=== PATIENT | male | born 1970 | race Caucasian/White ===

== ENCOUNTER 2018-08-18 16:05 | Inpatient (IN) ==
[2018-08-18] MEDS ORDERED: Naloxone 0.4 MG/ML INJ IVP PRN (18:07)
[2018-08-18] MEDS ORDERED: D5% in Water 1,000 ML IVC PRN (18:10)
[2018-08-18] MEDS ORDERED: Dextrose Gel 15 GM/37.5 ML TUBE PO PRN ×2 (18:10)
[2018-08-18] MEDS ORDERED: *HR* Dextrose 50 % in Water (Syg) 50 ML SYRINGE IVP PRN (18:10)
[2018-08-18] MEDS ORDERED: Acetaminophen 325 MG TABLET PO PRN (18:57)
[2018-08-18] MEDS ORDERED: Vancomycin 1 EACH in 0.9 % Sodium Chloride 250 ML IVPB SCH (19:00)
--- NOTE | 2018-08-18 19:21 | Internal Med History&Physical ---
Date of Encounter: 08/19/18 Time of Encounter: 19:20 Internal Medicine - H&P: HPI Chief complaint: Leg swelling History of present illness: Mr. Sellers is a 47 year old male with a past medical history of diabetes, COPD on home oxygen, coronary artery disease, hypertension, hyperlipidemia, CKD 3 and non-Hodgkin's lymphoma who initially presented to [facility] due to worsening swelling of his right lower extremity. Patient is been reporting right leg pain from his hip all the way down associated with an enlarging inguinal mass suspected to be an enlarged lymph node noted over the past [address] scan of the abdomen and pelvis was performed yesterday which showed evidence of mild progression of lymphoma with slight increase in size and multiple abnormally enlarged lymph nodes in the chest, pelvis and growing. Patient states that his right foot began swelling approximately 4 days ago. Initially did not think much of it because his feet normally swells. However, he noted that his right third toe progressively became more swollen and eventually "busted" Monday night. Patient denies any fever or chills. On arrival patient was hemodynamically stable, afebrile. Laboratory workup notable for a white count of 24,000. Hemoglobin 9.9. Creatinine 2.35. Patient started on broad spectrum antibiotics. Podiatry consult in. Past Med Surg Social Fam HX - Past Medical History Medical history: aortic aneurysm, atrial fibrillation, cancer, COPD, coronary artery disease, myocardial infarction, renal disease Additional medical history: sleep apnea, osteomylitis Psychiatric history: no psych history - Past Surgical History Additional surgical history: carpal tunnel surgery, EGD, colonsoscopy, two toe amputations - Social History Smoking Status: Never smoker Smokeless Tobacco Status: Yes Alcohol use: none Drug use: none - Additional Family History Additional family history: Noncontributory Internal Medicine - H&P: Meds Albuterol Sulfate [Ventolin Hfa] 2 puff PO Q46H PRN 08/19/18 [History] Clopidogrel [Plavix] 75 mg PO DAILY 08/19/18 [History] Ergocalciferol (VITAMIN D2) [Vitamin D2] 50,000 units PO QWEEK 08/19/18 [History] Ferrous Sulfate 325 mg PO DAILY 08/19/18 [History] Fluticasone Furoate [Arnuity Ellipta] 2 puff PO DAILY 08/19/18 [History] Folic Acid 1 mg PO DAILY 08/19/18 [History] Furosemide [Lasix] 20 mg PO DAILY 08/19/18 [History] Gabapentin [Neurontin] 800 mg PO TID 08/19/18 [History] Lansoprazole [Prevacid] 30 mg PO DAILY PRN 08/19/18 [History] Loratadine [Claritin] 10 mg PO DAILY 08/19/18 [History] Metoprolol Succinate 25 mg PO DAILY 08/19/18 [History] Simvastatin [Zocor] 40 mg PO HS 08/19/18 [History] Allergy/AdvReac Type Severity Reaction Status Date / Time levofloxacin [From Levaquin] Allergy Anaphylaxis Verified 08/19/18 12:50 sulfamethoxazole Allergy Anaphylaxis Verified 08/19/18 12:50 [From Bactrim] trimethoprim [From Bactrim] Allergy Anaphylaxis Verified 08/19/18 12:50 nicotine [From Nicoderm CQ] AdvReac Itching Verified 08/19/18 12:50 Varenicline [From Chantix] AdvReac Itching Verified 08/19/18 12:50 venlafaxine [From Effexor] AdvReac Fatigued Verified 08/19/18 12:50 All Systems PM: A 10-system review of systems was performed and is negative for pertinent findings except as documented above in the HPI. - Constitutional Constitutional: no chills, no fever(s), no night sweats - EENT Eyes: no change in vision, no discharge, no pain, no photophobia Ears: no ear discharge, no ear pain, no tinnitus Nose, mouth and throat: no dysphagia, no nasal discharge, no neck pain, no sore throat - Cardiovascular Cardiovascular ROS IM: no chest pain, no diaphoresis, no dyspnea, no lightheadedness, no palpitations, no syncope - Respiratory Respiratory: no cough, no dyspnea, no wheezing, no excessive phlegm production - Gastrointestinal Gastrointestinal: no abdominal pain, no diarrhea, no hematemesis, no hematochezia, no melena, no nausea, no vomiting - Musculoskeletal Musculoskeletal ROS IM: no numbness, no tingling - Integumentary Integumentary IM: no rash, no unusual bruising - Neurological Neurological ROS: no confusion, no convulsions, no focal weakness, no numbness, no tingling, no tremor(s) - Hematologic/Lymphatic Hematologic/Lymphatic: no easy bruising - Constitutional Vitals: Temp Pulse Resp BP Pulse Ox 97.7 F 80 17 116/73 97 08/18/18 18:39 08/18/18 18:39 08/18/18 18:39 08/18/18 18:39 08/18/18 18:39 Exam: General: Alert and oriented 3 Skin:Normal color, no rash, no lesions. HEENT:EOM, pupils equal, round and reactive. Cardiovascular:Normal S1 & S2, no rubs, murmurs or gallops. No JVD. Pulse regular. Lungs:Normal breath sounds, no wheezes or crackles. Abdomen:Soft, non-tender, no rigidity. Extremities: Edema of the entire right lower extremity. 1+ pitting edema of the right lower extremity with erythema of the right foot and calf. Necrotic third toe. No no purulent drainage noted. 2 x 2 cm ulceration of the medial aspect of the left first toe. Right inguinal mass on the anterior aspect of the right thigh tender to palpation. Neurological:Normal cognition and motor skills. Pulses:Carotid and radial pulses normal +2. Rest of the physical exam is non contributory Internal Med - H&P Results - Labs CBC & Chem 7: 08/19/18 05:33 08/19/18 05:33 - Assessment and Plan (1) Gangrene of toe of right foot Current Visit: Yes Status: Acute Assessment and plan: Right third toe gangrene. No evidence of purulent drainage. Patient has a white blood cell count of 24,000. No other systemic signs of infection. -Follow blood cultures -Continue Vanco and Zoyaniran -Podiatry to follow in the morning. (2) Foot ulcer, left Current Visit: Yes Status: Acute Assessment and plan: 2 x 2 centimeter ulceration of the medial aspect of the right first toe. No surrounding erythema. No significant purulent drainage. -Continue wound care per nurse -Consult to podiatry. Qualifiers: Non-pressure ulcer stage: unspecified non-pressure ulcer stage Qualified Code(s): L97.529 - Non-pressure chronic ulcer of other part of left foot with unspecified severity (3) Right groin mass Current Visit: Yes Status: Acute Assessment and plan: Two Right inguinal mass approximately 2 x 2 centimeters with tenderness to palpation. Patient has history of non-Hodgkin's lymphoma now with what appears to be a recurrence. Patient currently followed by oncology and recently had CT scan of the chest, abdomen, pelvis showing evidence of mild progression of lymphoma with slight increase in size and multiple abnormally enlarged lymph nodes in the chest, pelvis and groin. Patient states he has outpatient follow- up with his oncologist on the . Patient still reporting significant pain and tenderness in the right inguinal region. -Pain control -Consider oncology consult for inpatient management of lymphadenopathy. (4) Leukocytosis Current Visit: Yes Status: Acute Assessment and plan: Leukocytosis of 24,000. Suspect secondary to right lower extremity cellulitis and necrotic third toe. Continue antibiotics and monitor. Qualifiers: Leukocytosis type: unspecified Qualified Code(s): D72.829 - Elevated white blood cell count, unspecified (5) Lymphadenopathy Current Visit: Yes Status: Acute Assessment and plan: See Right growing mass above (6) CKD (chronic kidney disease) stage 3, GFR 30-59 ml/min Current Visit: Yes Status: Acute Assessment and plan: Patient reports history of CKD stage III. Creatinine obtained at [facility] 2.34. I have no reference to determine if this is acute or chronic. Patient reports that he is being followed for his kidney function. -We will start patient on maintenance fluids and reassess creatinine in the morning. -Consider nephrology consult. (7) DVT prophylaxis Current Visit: Yes Status: Acute - Time Spent With Patient Total time spent is greater than 50% in coordination of care (as documented) at patient's floor/unit and/or counseling patient:
[2018-08-18 20:25] LABS: BUN/Creatinine Ratio 16 (6-26); Blood Urea Nitrogen 36 mg/dL (6-20); eGFR For Non-African Americans 32 (> 60)
[2018-08-18] MEDS ORDERED: 0.9 % Sodium Chloride 1,000 ML IVC SCH (20:30)
[2018-08-18] MEDS: Piperacillin/Tazobactam 3.375 GM in 0.9 % Sodium Chloride Mini Bag 100 ML IVPB SCH (20:56)
[2018-08-18] MEDS: OXYCODONE Oral CONC 10 MG/0.5 ML ORAL.SYG SL PRN (20:57)
[2018-08-19] MEDS: OXYCODONE Oral CONC 10 MG/0.5 ML ORAL.SYG SL PRN ×3 (03:41→22:25)
[2018-08-19] MEDS: Piperacillin/Tazobactam 3.375 GM in 0.9 % Sodium Chloride Mini Bag 100 ML IVPB SCH ×3 (03:41→22:26)
[2018-08-19 07:06] LABS: Basophils # 0.1 K/mcL (0.0-0.2); Basophils % 0.4 %; Eosinophils # 0.2 K/mcL (0.0-0.6); Eosinophils % 1.3 %; Hematocrit 28.7 % (37.5-50.1); Hemoglobin 8.7 g/dL (12.9-16.9); Immature Granulocytes % 0.7 % (0-4); Lymphocytes # 1.5 K/mcL (0.6-4.6); Lymphocytes % 10.1 %; Mean Corpuscular HGB Conc 30.3 g/dL (31.6-35.5); Mean Corpuscular Hemoglobin 26.6 pg (28.0-33.3); Mean Corpuscular Volume 87.8 fL (83.0-100.0); Mean Platelet Volume 9.4 fL (9.4-12.4); Monocytes % 6.3 %; Neutrophils # 12.3 K/mcL (1.6-8.9); Platelet Count 570 K/mcL (140-400); Red Blood Count 3.27 M/mcL (4.19-5.50); Red Cell Distribution Width 17.2 % (11.5-14.5); Segmented Neutrophils % 81.2 %
[2018-08-19 07:22] LABS: Calcium 7.7 mg/dL (8.6-10.3); Magnesium 1.9 mg/dL (1.6-2.6); Phosphorous 5.8 mg/dL (2.7-4.5); Potassium 4.2 mEq/L (3.5-5.1)
[2018-08-19] MEDS: Insulin LISPRO 300 UNITS/3 ML VIAL SQ SCH ×3 (08:52→17:43)
--- NOTE | 2018-08-19 10:01 | Podiatry Consult Note ---
Date of Encounter: 08/19/18 Time of Encounter: 08:20 Assessment and Plan (1) Cellulitis of right toe Current visit: Yes Status: Acute Discussed condition and my findings with patient. Discussed treatment options. Discussed condition of toe and I do not think toes going to survive. Discussed and ordered vascular testing to evaluate blood flow and healing potential. Patient will require surgery but first needs to have this vascular status evaluated. We discussed a transmetatarsal amputation is leaving digits 1 and 5 will likely lead to breakdown and future problems, wounds/infection etc. He will continue antibiotics for now. After vascular testing potentially plan for surgery. Betadine to right third digit. Patient is in agreement with plan of care. (2) Chronic ulcer of great toe of left foot with fat layer exposed Current visit: Yes Status: Acute Use alginate on wound. This wound does not appear infected. Offloading surgical shoe. History of Present Illness HPI: Mr. Sellers is a 47 year old male with diabetes, COPD on home oxygen, coronary artery disease, hypertension, hyperlipidemia, CKD 3 and non-Hodgkin's lymphoma who initially presented to [facility] due to worsening swelling of his right lower extremity. Patient is being treated for the lymphoma. Patient says 3 weeks ago he banged his right 3rd toe on the door at home and then a few days ago it developed a blister and swelling and started to turn black.He says has not seen anyone for it. he also says he has not seen anyone for the wound on his left big toe and he has been treating it at home himself. he says it went from being most of the toe to only a small area. says the amputations he had done on his right foot were in [place] and one in [place] with Dr. Camacho. Says he does not have reliable transportation to get to appointments so he has not tried to go to the wound care center or be seen for his foot problems. 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 Past Med Surg Social Fam HX - Past Medical History Medical history: aortic aneurysm, atrial fibrillation, cancer, COPD, coronary artery disease, myocardial infarction, renal disease Additional medical history: sleep apnea, osteomylitis Psychiatric history: no psych history - Past Surgical History Additional surgical history: carpal tunnel surgery, EGD, colonsoscopy, two toe amputations - Social History Smoking Status: Never smoker Smokeless Tobacco Status: Yes Alcohol use: none Drug use: none Medications and Allergies Allergy/AdvReac Type Severity Reaction Status Date / Time levofloxacin [From Levaquin] Allergy Anaphylaxis Verified 08/18/18 18:28 sulfamethoxazole Allergy Anaphylaxis Verified 08/18/18 18:28 [From Bactrim] trimethoprim [From Bactrim] Allergy Anaphylaxis Verified 08/18/18 18:28 nicotine [From Nicoderm CQ] AdvReac Itching Verified 08/18/18 18:28 Varenicline [From Chantix] AdvReac Itching Verified 08/18/18 18:28 venlafaxine [From Effexor] AdvReac Fatigued Verified 08/18/18 18:28 All Systems Reviewed: The remainder of the systems were reviewed and are negative - Constitutional Constitutional: no fever(s) - Cardiovascular Cardiovascular: no chest pain, no dyspnea - Respiratory Respiratory: no cough - Musculoskeletal Musculoskeletal: joint swelling, numbness Physical Exam - Constitutional Vitals: Temp Pulse Resp BP Pulse Ox 98.4 F 59 97 126/70 95 08/19/18 06:57 08/19/18 06:57 08/19/18 06:57 08/19/18 06:57 08/19/18 03:21 - Head Head exam: Present: atraumatic - Ankle & Foot Exam: Well developed obese male in no acute distress Left hallux plantar medial approximately 2 cm x 1.5 cm ulceration with a mostly granular wound base no fluctuance no erythema. Capillary refill time intact to remaining digits of the right foot except for the third digit which remained. Foot is warm to touch. Left foot has capillary refill time intact. Right third digit is cool to touch. Minimal erythema of the foot distally. There is some purulent drainage and wound does probe to bone and the dorsal aspect of the third digit at the level of the interphalangeal joint. There are dusky changes of the digit. Diminished protective sensation. Results - Labs Result Diagrams: 08/19/18 05:33 08/19/18 05:33 Labs: Abnormal lab results WBC 15.1 K/mcL (4.3-11.1) H 08/19/18 05:33 RBC 3.27 M/mcL (4.19-5.50) L 08/19/18 05:33 Hgb 8.7 g/dL (12.9-16.9) L 08/19/18 05:33 Hct 28.7 % (37.5-50.1) L 08/19/18 05:33 MCH 26.6 pg (28.0-33.3) L 08/19/18 05:33 MCHC 30.3 g/dL (31.6-35.5) L 08/19/18 05:33 RDW 17.2 % (11.5-14.5) H 08/19/18 05:33 Plt Count 570 K/mcL (140-400) H 08/19/18 05:33 12.3 K/mcL (1.6-8.9) H 08/19/18 05:33 BUN 36 mg/dL (6-20) H 08/19/18 05:33 2.31 mg/dL (0.70-1.30) H 08/19/18 05:33 Est GFR ( Amer) 37 (> 60) L 08/19/18 05:33 Est GFR (Non-Af Amer) 30 (> 60) L 08/19/18 05:33 Calcium 7.7 mg/dL (8.6-10.3) L 08/19/18 05:33 Phosphorus 5.8 mg/dL (2.7-4.5) H 08/19/18 05:33 H & H 08/19/18 Range/Units 05:33 Hgb 8.7 L (12.9-16.9) g/dL Hct 28.7 L (37.5-50.1) % All other labs normal. Consult Discharge Plan - Plan Referrals: Roslyn Cooper MD [Primary Care Provider] -
[2018-08-19 12:36] LABS: Estimated Average Glucose 140 mg/dl; Hemoglobin A1C 6.5 %
--- NOTE | 2018-08-19 14:10 | Internal Med Progress Note ---
Hospitalist Progress Note - Encounter Date of Encounter: 08/19/18 Time of Encounter: 10:45 - Subjective Interval History: Mr Sellers is currently admitted for gangrenous toe. He remains moderate to high risk due to potential for worsening clinical status. He is on multiple IV abx. Mr Sellers is resting in bed. Says he is very thirsty. No fever or chills. To have ABIs. Appreciate podiatry input and plan. Tolerating IV abx. No CP or SOB. No GI issues. - Exam Vitals: Temp Pulse Resp BP Pulse Ox 97.8 F 82 16 112/65 97 08/19/18 10:29 08/19/18 10:29 08/19/18 10:29 08/19/18 10:29 08/19/18 10:29 Exam: General: Alert and oriented. Comfortable at this time. Skin: Normal color, no rash. Multiple scar lesions noted on arms and legs. H: Normocephalic. EENT: EOMI, pupils equal. Mucus membranes moist. Cardiovascular: Normal S1 & S2, no murmurs. Pulse regular. Not tachycardic. Lungs: Normal breath sounds, no wheezes or crackles. Abdomen: Soft, non-tender, Extremities: Dressings intact bilateral lower extremities. Edema noted. Neurological: Normal cognition and motor skills. Pulses: radial pulses normal +2. Rest of the physical exam is non contributory - Assessment and Plan (1) Gangrene of toe of right foot Current Visit: Yes Status: Acute Assessment and Plan: Right third toe gangrene. WBC improved this AM Appreciate podiatry input. Currently on IV abx. To have ABIs done. (2) Right groin mass Current Visit: Yes Status: Acute Assessment and Plan: Two Right inguinal mass approximately 2 x 2 centimeters with tenderness to palpation. Patient has history of non-Hodgkin's lymphoma now with what appears to be a recurrence. Patient currently followed by oncology and recently had CT scan of the chest, abdomen, pelvis showing evidence of mild progression of lymphoma with slight increase in size and multiple abnormally enlarged lymph nodes in the chest, pelvis and groin. Patient states he has outpatient follow- up with his oncologist on the . -Pain control Will hold on oncology at this time as infection more pressing issue. (3) Foot ulcer, left Current Visit: Yes Status: Acute Assessment and Plan: 2 x 2 centimeter ulceration of the medial aspect of the right first toe. No surrounding erythema. No significant purulent drainage. -Continue wound care per nurse -Appreciate podiatry input. (4) Hodgkin lymphoma Current Visit: Yes Status: Chronic Assessment and Plan: Has outpatient arranged. (5) Leukocytosis Current Visit: Yes Status: Acute Assessment and Plan: Due to infection. Improving. (6) CKD (chronic kidney disease) stage 3, GFR 30-59 ml/min Current Visit: Yes Status: Acute Assessment and Plan: Patient reports history of CKD stage III. Creatinine stable from yesterday. Continue supportive care and avoiding nephrotoxins as able. (7) DVT prophylaxis Current Visit: Yes Status: Acute (8) Morbid obesity with BMI of 40.0-44.9, adult Current Visit: Yes Status: Chronic Assessment and Plan: Chronic issue - Time Spent with Patient Total time spent is greater than 50% in coordination of care (as documented) at patient's floor/unit and/or counseling patient: Internal Medicine: Result - Labs CBC & Chem 7: 08/19/18 05:33 08/19/18 05:33 Labs: Short CBC 08/19/18 Range/Units 05:33 WBC 15.1 H (4.3-11.1) K/mcL Hgb 8.7 L (12.9-16.9) g/dL Hct 28.7 L (37.5-50.1) % Plt Count 570 H (140-400) K/mcL Neutrophils # 12.3 H (1.6-8.9) K/mcL BMP 08/18/18 08/19/18 19:29 05:33 Sodium 136 Potassium 4.2 Chloride 101 Carbon Dioxide 28 BUN 36 H 36 H Creatinine 2.23 H 2.31 H Glucose 90 Calcium 7.7 L Consult Discharge Plan - Plan Referrals: Roslyn Cooper MD [Primary Care Provider] - (3) Foot ulcer, left Qualifiers: Non-pressure ulcer stage: unspecified non-pressure ulcer stage Qualified Code(s): L97.529 - Non-pressure chronic ulcer of other part of left foot with unspecified severity (4) Hodgkin lymphoma Qualifiers: Hodgkin lymphoma type: unspecified type Lymphoma site: multiple regions Qualified Code(s): C81.98 - Hodgkin lymphoma, unspecified, lymph nodes of mult iple sites (5) Leukocytosis Qualifiers: Leukocytosis type: unspecified Qualified Code(s): D72.829 - Elevated white blood cell count, unspecified
[2018-08-19] MEDS: Gabapentin 400 MG CAPSULE PO SCH ×2 (16:17→22:25)
[2018-08-19] MEDS ORDERED: *HR* Heparin 5,000 UNIT/ML VIAL SQ ONE (19:11)
[2018-08-20] MEDS: OXYCODONE Oral CONC 10 MG/0.5 ML ORAL.SYG SL PRN ×3 (04:34→21:07)
[2018-08-20] MEDS: Piperacillin/Tazobactam 3.375 GM in 0.9 % Sodium Chloride Mini Bag 100 ML IVPB SCH ×2 (04:35→11:36)
[2018-08-20 06:41] LABS: Hemoglobin 8.8 g/dL (12.9-16.9); Mean Corpuscular HGB Conc 30.3 g/dL (31.6-35.5); Mean Corpuscular Hemoglobin 26.3 pg (28.0-33.3); Mean Corpuscular Volume 86.8 fL (83.0-100.0); Mean Platelet Volume 9.2 fL (9.4-12.4); Platelet Count 639 K/mcL (140-400); Red Blood Count 3.34 M/mcL (4.19-5.50); Red Cell Distribution Width 16.8 % (11.5-14.5)
[2018-08-20 06:48] LABS: INR 1.2; Prothrombin Time 13.6 Seconds (9.4-12.1)
[2018-08-20 06:51] LABS: Activated Partial Thrombo Time 31.8 Seconds (26.0-36.0)
[2018-08-20 07:06] LABS: Calcium 7.8 mg/dL (8.6-10.3); Magnesium 1.8 mg/dL (1.6-2.6); Potassium 4.3 mEq/L (3.5-5.1)
[2018-08-20] MEDS: Folic Acid 1 MG TABLET PO SCH (08:06)
[2018-08-20] MEDS: Furosemide 20 MG TABLET PO SCH (08:06)
[2018-08-20] MEDS: Insulin LISPRO 300 UNITS/3 ML VIAL SQ SCH ×3 (08:06→16:12)
[2018-08-20] MEDS: Gabapentin 400 MG CAPSULE PO SCH ×3 (08:06→21:07)
[2018-08-20] MEDS: Metoprolol XL (24 HR) Succ 25 MG TAB.ER.24H PO SCH (08:06)
[2018-08-20] MEDS: Loratadine 10 MG TABLET PO SCH (08:06)
[2018-08-20] MEDS ORDERED: FLUTICASONE FUROATE PO SCH (09:00)
--- NOTE | 2018-08-20 11:56 | Podiatry Progress Note ---
Date of Encounter: 08/21/18 Time of Encounter: 11:45 - Assessment and Plan (1) Chronic ulcer of great toe of left foot with fat layer exposed Current Visit: Yes Status: Acute Assessment: Her stage 2 ulceration Plan: Appears stable Nursing reports patient changing dressing multiple times a day Cleansed with 0.9 NS Covered with calcium alginate, 4x4 dry gauze, and tape Continue local wound care, nursing to change, instructed patient to allow staff to change dressing to keep wound clean (2) Gangrene of toe of right foot Current Visit: Yes Status: Acute Assessment: Gangrene right digit #3 Plan: Painted with betadine Covered with 4x4 dry gauze and kerlix. Secured with medipore ABIs returned 1.14 right, adequate blood flow Plan for surgical intervention, TMA, later this week with Dr. Flower. Will make NPO after MN once surgery time available Subjective Interval history: Patient awake sitting in bed. Alert and oriented x 3. Patient denies any overnight events. Denies fevers, chills, nausea, vomiting, or diarrhea. Denies any calf pain, chest pain, or shortness of breath. Discussed need for surgical intervention. Will notify patient when surgery scheduled. Verbalized understanding. No other questions or concerns at this time. Objective - Vital Signs Vital Signs: Vital Signs Temp Pulse Resp BP Pulse Ox 08/20/18 11:05 97.5 F L 76 16 112/69 97 08/20/18 08:05 97 08/20/18 06:59 98.1 F 77 16 107/58 98 08/20/18 04:17 98.3 F 80 14 109/64 98 08/19/18 19:11 97.7 F 86 16 105/57 97 Intake and Output 08/19/18 08/20/18 08/20/18 23:59 07:59 15:59 Intake Total 580 / 1780 580 / 840 260 / 840 Output Total 200 / 200 Balance 580 / 1780 580 / 640 60 / 640 Intake: IV Fluids 100 / 1300 100 / 200 100 / 200 Zosyn 3.375 GM In 0.9 % Sodium 100 / 300 100 / 200 100 / 200 Chloride (Mini-Bag +) 100 ML @ 25 mls/hr IVPB Q8H [facility] Rx#: [id number] Oral 480 / 480 480 / 640 160 / 640 Output: Urine 200 / 200 Other: Meal Dinner Breakfast Percent of Meal Consumed 100% 75% # Voids 2 3 # Bowel Movements 0 0 Weight 138 kg Blood Glucose* 110 100 120 Patient Weight 08/20/18 23:59 Weight 138 kg - Exam Exam: Constitiutional: Alert and oriented x 3. Well nourished. No acute distress noted Vascular: 1/4 DP/PT bilaterally, CFT <3 sec to all digits LLE, warm to warm from tibia to toes bilaterally, no calf pain with squeeze, digit amputation to right foot x 2, ischemic toe #3 right foot, 2/4 edema right foot Neurologic: Absent sensation to touch, normal plantar response, Dermatologic: Ischemic toe #3 right foot, foul odor noted, left hallux medial w agner stage 2 ulceration, wound bed pink in color, minimal drainage noted Musculoskeletal: 3/5 muscle strength and normal tone bilaterally. - Lab Result Diagrams: 08/21/18 04:15 08/21/18 04:15 Labs: Abnormal lab results WBC 11.4 K/mcL (4.3-11.1) H 08/20/18 05:47 RBC 3.34 M/mcL (4.19-5.50) L 08/20/18 05:47 Hgb 8.8 g/dL (12.9-16.9) L 08/20/18 05:47 Hct 29.0 % (37.5-50.1) L 08/20/18 05:47 MCH 26.3 pg (28.0-33.3) L 08/20/18 05:47 MCHC 30.3 g/dL (31.6-35.5) L 08/20/18 05:47 RDW 16.8 % (11.5-14.5) H 08/20/18 05:47 Plt Count 639 K/mcL (140-400) H 08/20/18 05:47 MPV 9.2 fL (9.4-12.4) L 08/20/18 05:47 12.3 K/mcL (1.6-8.9) H 08/19/18 05:33 PT 13.6 Seconds (9.4-12.1) H 08/20/18 05:47 Sodium 130 mEq/L (136-145) L 08/20/18 05:47 Chloride 96 mEq/L (98-107) L 08/20/18 05:47 BUN 38 mg/dL (6-20) H 08/20/18 05:47 2.62 mg/dL (0.70-1.30) H 08/20/18 05:47 Est GFR ( Amer) 32 (> 60) L 08/20/18 05:47 Est GFR (Non-Af Amer) 26 (> 60) L 08/20/18 05:47 POC Glucose 120 mg/dL (70-99) H 08/20/18 11:02 6.5 % (-5.6) H 08/18/18 19:07 279 (280-300) L 08/20/18 05:47 Calcium 7.8 mg/dL (8.6-10.3) L 08/20/18 05:47 Phosphorus 5.8 mg/dL (2.7-4.5) H 08/19/18 05:33 Microbiology, Last 48 Hours 08/18/18 19:07 Blood Culture - Preliminary Peripheral Venipuncture Culture is incubating and being continuously monitored for growth. Final report to follow. 08/18/18 19:07 Blood Culture - Preliminary Peripheral Venipuncture Culture is incubating and being continuously monitored for growth. Final report to follow. Consult Discharge Plan - Plan Referrals: Roslyn Cooper MD [Primary Care Provider] -
[2018-08-20] MEDS ORDERED: OXYCODONE Oral CONC 10 MG/0.5 ML ORAL.SYG SL PRN ×2 (13:21→13:22)
--- NOTE | 2018-08-20 14:38 | Internal Med Progress Note ---
<Dilshad Zarate R - Last Filed: 08/20/18 14:33> Hospitalist Progress Note - Encounter Date of Encounter: 08/20/18 Time of Encounter: 09:25 - Subjective Interval History: Patient seen and examined. He reports continued right foot pain despite current pain regimen. He denies other symptoms. Denies fevers, chills, chest pain, dyspnea, abdominal pain, change in bowels, or dysuria. He does not feel that the LE swelling is worse compared to yesterday. - Exam Vitals: Temp Pulse Resp BP Pulse Ox 97.7 F 73 16 109/64 100 08/20/18 14:17 08/20/18 14:17 08/20/18 14:17 08/20/18 14:17 08/20/18 14:17 Exam: GEN: No acute distress, A&O3 HEAD: Atraumatic, normocephalic EYES: Pupils symmetric, sclera white, conjunctiva pink HEART: RRR, normal S1 and S2, no murmurs LUNGS: Clear to auscultation bilaterally, no wheezes, rhonchi, or crackles ABD: Soft, nontender, nondistended, bowel sounds present NEURO: No focal deficits, cooperative with exam EXT: Edema of the bilateral lower extremity (R>L). 1+ pitting edema RLE with erythema of the right foot and calf. Necrotic third toe. No no purulent drainage noted. Dressings in place on bilateral feet without drainage - Assessment and Plan (1) Gangrene of toe of right foot Current Visit: Yes Status: Acute Assessment and Plan: Right third toe gangrene WBC improving Appreciate podiatry input - planning on OR at some point Change zosyn to cefepime with worsening renal function Continue Vancomycin Will add 15mg oxycodone for severe pain (2) Foot ulcer, left Current Visit: Yes Status: Acute Assessment and Plan: 2 x 2 centimeter ulceration of the medial aspect of the right first toe. No melida rounding erythema. No significant purulent drainage Continue wound care Appreciate podiatry input (3) Right groin mass Current Visit: Yes Status: Acute Assessment and Plan: Two Right inguinal mass approximately 2 x 2 centimeters with tenderness to palpation Patient has history of non-Hodgkin's lymphoma now with what appears to be a recurrence Currently followed by oncology and recently had CT scan of the chest, abdomen, pelvis showing evidence of mild progression of lymphoma with slight increase in size and multiple abnormally enlarged lymph nodes in the chest, pelvis and groin - he has outpatient follow-up with his oncologist on 08/27/18 Will hold on oncology at this time as infection more pressing issue (4) Hyponatremia Current Visit: Yes Status: Acute Assessment and Plan: Drop in sodium this AM, down to 130 Patient reports to drinking excessive fluids and Osm low Will check urine urea Will place the patient on fluid restrictions and continue to monitor (5) Leukocytosis Current Visit: Yes Status: Acute Assessment and Plan: Secondary to infection - improving (6) CKD (chronic kidney disease) stage 3, GFR 30-59 ml/min Current Visit: Yes Status: Acute Assessment and Plan: Per patient report hx of CKD stage III Mild worsening in SCr to 2.62 and GFR to 26 Will stop Zosyn and switch to Cefepime Continue Vancomycin at this time Avoid nephrotoxins as able Strict I/O's - UOP has not been recorded Continue to monitor closely (7) Hodgkin lymphoma Current Visit: Yes Status: Chronic Assessment and Plan: Has out-patient follow-up arranged (8) Morbid obesity with BMI of 40.0-44.9, adult Current Visit: Yes Status: Chronic Assessment and Plan: Chronic issue DVT Prophylaxis: Bilateral SCDs - Time Spent with Patient Total time spent is greater than 50% in coordination of care (as documented) at patient's floor/unit and/or counseling patient: Internal Medicine: Result - Labs CBC & Chem 7: 08/20/18 05:47 08/20/18 05:47 Labs: Short CBC 08/20/18 Range/Units 05:47 WBC 11.4 H (4.3-11.1) K/mcL Hgb 8.8 L (12.9-16.9) g/dL Hct 29.0 L (37.5-50.1) % Plt Count 639 H (140-400) K/mcL BMP 08/20/18 05:47 Sodium 130 L Potassium 4.3 Chloride 96 L Carbon Dioxide 27 BUN 38 H Creatinine 2.62 H Glucose 103 Calcium 7.8 L - ABG Interpretation ABG results: PT/INR, D-dimer PT 13.6 Seconds (9.4-12.1) H 08/20/18 05:47 Consult Discharge Plan - Plan Referrals: Roslyn Cooper MD [Primary Care Provider] - <Yuri Dasilva - Last Filed: 08/20/18 14:59> Hospitalist Progress Note - Encounter Date of Encounter: 08/20/18 - Exam Vitals: Temp Pulse Resp BP Pulse Ox 97.7 F 73 16 109/64 100 08/20/18 14:17 08/20/18 14:17 08/20/18 14:17 08/20/18 14:17 08/20/18 14:17 - Assessment and Plan (1) Gangrene of toe of right foot Current Visit: Yes Status: Acute (2) Right groin mass Current Visit: Yes Status: Acute (3) Foot ulcer, left Current Visit: Yes Status: Acute (4) Leukocytosis Current Visit: Yes Status: Acute (5) Lymphadenopathy Current Visit: Yes Status: Acute (6) CKD (chronic kidney disease) stage 3, GFR 30-59 ml/min Current Visit: Yes Status: Acute (7) DVT prophylaxis Current Visit: Yes Status: Acute (8) Hyponatremia Current Visit: Yes Status: Acute (9) Morbid obesity with BMI of 40.0-44.9, adult Current Visit: Yes Status: Chronic (10) Chronic respiratory failure with hypoxia Current Visit: Yes Status: Chronic - Time Spent with Patient Total time spent is greater than 50% in coordination of care (as documented) at patient's floor/unit and/or counseling patient: Internal Medicine: Result - Labs CBC & Chem 7: 08/20/18 05:47 08/20/18 05:47 Labs: Short CBC 08/20/18 Range/Units 05:47 WBC 11.4 H (4.3-11.1) K/mcL Hgb 8.8 L (12.9-16.9) g/dL Hct 29.0 L (37.5-50.1) % Plt Count 639 H (140-400) K/mcL BMP 08/20/18 05:47 Sodium 130 L Potassium 4.3 Chloride 96 L Carbon Dioxide 27 BUN 38 H Creatinine 2.62 H Glucose 103 Calcium 7.8 L - ABG Interpretation ABG results: PT/INR, D-dimer PT 13.6 Seconds (9.4-12.1) H 08/20/18 05:47 - Attending Attestation I examined this patient and my medical decision-making was reviewed with the Resident Physician on 08/20/18. I agree with the documented findings, disposition and treatment plan as described except to the extent set forth below. Mr Sellers is currently admitted for gangrene of R foot. He remains moderate to high risk due to potential for worsening clinical status. Mr Sellers is doing OK. His ABIs were normal. Plan is for surgery when OR time available. No fever or chills. No new complaints except says pain is not controlled. Exam alert. Comfortable at this time Mucus membranes dry Heart regular No wheeze Abd soft Dressings intact I/P 1. Gangrene - per podiatry. Adjusting pain meds today. 2. Chronic hypoxic resp failure 3. CKD 3 4. Morbid obesity 5. Lymphoma Further diagnoses and plan as above. <Dilshad Zarate - Last Filed: 08/20/18 14:33> (2) Foot ulcer, left Qualifiers: Non-pressure ulcer stage: unspecified non-pressure ulcer stage Qualified Code(s): L97.529 - Non-pressure chronic ulcer of other part of left foot with unspecified severity (5) Leukocytosis Qualifiers: Leukocytosis type: unspecified Qualified Code(s): D72.829 - Elevated white blood cell count, unspecified (7) Hodgkin lymphoma Qualifiers: Hodgkin lymphoma type: unspecified type Lymphoma site: multiple regions Qualified Code(s): C81.98 - Hodgkin lymphoma, unspecified, lymph nodes of mult iple sites <Yuri Dasilva - Last Filed: 08/20/18 14:59> (3) Foot ulcer, left Qualifiers: Non-pressure ulcer stage: unspecified non-pressure ulcer stage Qualified Code(s): L97.529 - Non-pressure chronic ulcer of other part of left foot with unspecified severity (4) Leukocytosis Qualifiers: Leukocytosis type: unspecified Qualified Code(s): D72.829 - Elevated white blood cell count, unspecified
[2018-08-20] MEDS: Cefepime HCl 2,000 MG in Water for inj. (sterile) 20 ML 20 ML IVP SCH (16:16)
[2018-08-20 17:43] LABS: Protein/Creatinine Ratio,Urine 1.36 mg/mg (0.00-0.20)
[2018-08-20] MEDS: MOMETASONE FUROATE 100 mcg Inhaler IH SCH (20:55)
[2018-08-21 05:00] LABS: Basophils # 0.1 K/mcL (0.0-0.2); Basophils % 0.4 %; Eosinophils # 0.2 K/mcL (0.0-0.6); Eosinophils % 1.5 %; Hematocrit 28.7 % (37.5-50.1); Hemoglobin 8.8 g/dL (12.9-16.9); Immature Granulocytes % 0.8 % (0-4); Lymphocytes # 1.9 K/mcL (0.6-4.6); Lymphocytes % 13.7 %; Mean Corpuscular HGB Conc 30.7 g/dL (31.6-35.5); Mean Corpuscular Hemoglobin 26.5 pg (28.0-33.3); Mean Corpuscular Volume 86.4 fL (83.0-100.0); Mean Platelet Volume 9.5 fL (9.4-12.4); Monocytes % 7.2 %; Neutrophils # 10.8 K/mcL (1.6-8.9); Platelet Count 586 K/mcL (140-400); Red Blood Count 3.32 M/mcL (4.19-5.50); Red Cell Distribution Width 16.7 % (11.5-14.5); Segmented Neutrophils % 76.4 %
[2018-08-21] MEDS: Cefepime HCl 2,000 MG in Water for inj. (sterile) 20 ML 20 ML IVP SCH ×2 (05:15→18:01)
[2018-08-21] MEDS: OXYCODONE Oral CONC 10 MG/0.5 ML ORAL.SYG SL PRN ×2 (05:16→21:17)
[2018-08-21 05:27] LABS: Calcium 8.1 mg/dL (8.6-10.3); Potassium 5.3 mEq/L (3.5-5.1)
[2018-08-21] MEDS: MOMETASONE FUROATE 100 mcg Inhaler IH SCH ×2 (07:21→20:50)
[2018-08-21] MEDS: Insulin LISPRO 300 UNITS/3 ML VIAL SQ SCH ×3 (08:44→16:09)
[2018-08-21] MEDS: Furosemide 20 MG TABLET PO SCH (08:53)
[2018-08-21] MEDS: Loratadine 10 MG TABLET PO SCH (08:53)
[2018-08-21] MEDS: Metoprolol XL (24 HR) Succ 25 MG TAB.ER.24H PO SCH (08:53)
[2018-08-21] MEDS: Gabapentin 400 MG CAPSULE PO SCH (08:53)
[2018-08-21] MEDS: Folic Acid 1 MG TABLET PO SCH (08:53)
[2018-08-21] MEDS: 0.9 % Sodium Chloride 1,000 ML IVC SCH (12:10)
--- NOTE | 2018-08-21 13:18 | Internal Med Progress Note ---
<ElliotDilshad R - Last Filed: 08/21/18 13:16> Hospitalist Progress Note - Encounter Date of Encounter: 08/21/18 Time of Encounter: 08:40 - Subjective Interval History: Patient seen and examined. Reports his pain is improved some. He denies other symptoms. Denies fevers, chills, chest pain, dyspnea, abdominal pain, change in bowels, or dysuria. LE edema is stable. No acute overnight events. - Exam Vitals: Temp Pulse Resp BP Pulse Ox 98.7 F 77 19 102/67 98 08/21/18 10:57 08/21/18 10:57 08/21/18 10:57 08/21/18 10:57 08/21/18 10:57 Exam: GEN: No acute distress, A&O3 HEAD: Atraumatic, normocephalic EYES: Pupils symmetric, sclera white, conjunctiva pink HEART: RRR, normal S1 and S2, no murmurs LUNGS: Clear to auscultation bilaterally, no wheezes, rhonchi, or crackles ABD: Soft, nontender, nondistended, bowel sounds present NEURO: No focal deficits, cooperative with exam EXT: Edema of the bilateral lower extremity (R>L), pitting edema RLE with erythema of the right foot and calf. Necrotic third toe. Dressings in place on bilateral feet without drainage - Assessment and Plan (1) Gangrene of toe of right foot Current Visit: Yes Status: Acute Assessment and Plan: Right third toe gangrene Appreciate podiatry input - planning on OR tomorrow WBC increased today after changing from zosyn to cefepim Will add metronidazole for increased anaerobe coverage Continue cefepime and vancomycin Continue pain meds (2) Foot ulcer, left Current Visit: Yes Status: Acute Assessment and Plan: 2 x 2 centimeter ulceration of the medial aspect of the right first toe No surrounding erythema. No significant purulent drainage Continue wound care Appreciate podiatry input (3) Right groin mass Current Visit: Yes Status: Acute Assessment and Plan: Two Right inguinal mass approximately 2 x 2 centimeters with tenderness to palpation Patient has history of non-Hodgkin's lymphoma now with what appears to be a recurrence Currently followed by oncology and recently had CT scan of the chest, abdomen, pelvis showing evidence of mild progression of lymphoma with slight increase in size and multiple abnormally enlarged lymph nodes in the chest, pelvis and groin - he has outpatient follow-up with his oncologist on 08/27/18 Will not consult oncology at this time as infection more pressing issue (4) Hyponatremia Current Visit: Yes Status: Acute Assessment and Plan: Improvement after fluid restriction yesterday, but not his renal function is wo rsening We will add gentle hydration with NaCl today (5) Leukocytosis Current Visit: Yes Status: Acute Assessment and Plan: Secondary to infection - plan as above (6) CKD (chronic kidney disease) stage 3, GFR 30-59 ml/min Current Visit: Yes Status: Acute Assessment and Plan: Unclear baseline - per patient report hx of CKD stage III ISIDRO on CKD - Renal function worse today with SCr to 2.85 and GFR [address] on gentle hydration with NS today Avoid nephrotoxins as able - will stop lasix Continue vancomycin at this time Strict I/O's, having good UOP Add renal modification to his diet His edema has not significantly worsened yet, but it may with fluids from the OR tomorrow I anticipate that nephro consult may be needed in the upcoming days (7) Hodgkin lymphoma Current Visit: Yes Status: Chronic Assessment and Plan: Has out-patient follow-up arranged (8) Morbid obesity with BMI of 40.0-44.9, adult Current Visit: Yes Status: Chronic Assessment and Plan: Chronic issue (9) Hypocalcemia Current Visit: Yes Status: Acute Assessment and Plan: Will give calcium gluconate today Nutrition following - appreciate input (10) Hyperkalemia Current Visit: Yes Status: Acute Assessment and Plan: Will give calcium gluconate today Add renal modifications to diet DVT Prophylaxis: Bilateral SCDs - Time Spent with Patient Total time spent is greater than 50% in coordination of care (as documented) at patient's floor/unit and/or counseling patient: Internal Medicine: Result - Labs CBC & Chem 7: 08/21/18 04:15 08/21/18 04:15 Labs: Short CBC 08/21/18 Range/Units 04:15 WBC 14.2 H (4.3-11.1) K/mcL Hgb 8.8 L (12.9-16.9) g/dL Hct 28.7 L (37.5-50.1) % Plt Count 586 H (140-400) K/mcL Neutrophils # 10.8 H (1.6-8.9) K/mcL BMP 08/21/18 04:15 Sodium 134 L Potassium 5.3 H Chloride 99 Carbon Dioxide 25 BUN 47 H Creatinine 2.85 H Glucose 75 Calcium 8.1 L - ABG Interpretation ABG results: PT/INR, D-dimer PT 13.6 Seconds (9.4-12.1) H 08/20/18 05:47 Consult Discharge Plan - Plan Referrals: Roslyn Cooepr MD [Primary Care Provider] - <Yuri Dasilva - Last Filed: 08/21/18 16:40> Hospitalist Progress Note - Encounter Date of Encounter: 08/21/18 - Exam Vitals: Temp Pulse Resp BP Pulse Ox 98.7 F 77 19 102/67 98 08/21/18 10:57 08/21/18 10:57 08/21/18 10:57 08/21/18 10:57 08/21/18 10:57 - Assessment and Plan (1) Gangrene of toe of right foot Current Visit: Yes Status: Acute (2) Right groin mass Current Visit: Yes Status: Acute (3) Foot ulcer, left Current Visit: Yes Status: Acute (4) Leukocytosis Current Visit: Yes Status: Acute (5) Lymphadenopathy Current Visit: Yes Status: Acute (6) CKD (chronic kidney disease) stage 3, GFR 30-59 ml/min Current Visit: Yes Status: Acute (7) DVT prophylaxis Current Visit: Yes Status: Acute (8) Hyponatremia Current Visit: Yes Status: Acute (9) Morbid obesity with BMI of 40.0-44.9, adult Current Visit: Yes Status: Chronic (10) Chronic respiratory failure with hypoxia Current Visit: Yes Status: Chronic (11) Non-Hodgkin lymphoma Current Visit: Yes Status: Acute - Time Spent with Patient Total time spent is greater than 50% in coordination of care (as documented) at patient's floor/unit and/or counseling patient: Internal Medicine: Result - Labs CBC & Chem 7: 08/21/18 04:15 08/21/18 04:15 Labs: Short CBC 08/21/18 Range/Units 04:15 WBC 14.2 H (4.3-11.1) K/mcL Hgb 8.8 L (12.9-16.9) g/dL Hct 28.7 L (37.5-50.1) % Plt Count 586 H (140-400) K/mcL Neutrophils # 10.8 H (1.6-8.9) K/mcL BMP 08/21/18 04:15 Sodium 134 L Potassium 5.3 H Chloride 99 Carbon Dioxide 25 BUN 47 H Creatinine 2.85 H Glucose 75 Calcium 8.1 L - ABG Interpretation ABG results: PT/INR, D-dimer PT 13.6 Seconds (9.4-12.1) H 08/20/18 05:47 - Attending Attestation I examined this patient and my medical decision-making was reviewed with the Resident Physician on 08/21/18. I agree with the documented findings, disposition and treatment plan as described except to the extent set forth below. Mr Sellers is currently admitted for gangrene of toe. He remains moderate to high risk due to potential for worsening clinical status. Mr Sellers feels OK. Pain seems better controlled. No fever or chills. No CP or SOB. Exam Alert Comfortable Mucus membranes dry Heart not tachy and regular No wheeze at this time Abd soft Dressings intact Scars on legs I/P 1. Gangrene - for OR tomorrow. Continue IV abx. 2. DM - fair control 3. Morbid obesity. 4. NonHodgkins lymphoma - pt says he is not on treatment. 5. CKD 3 Further diagnoses and plan as above. <Dilshad Zarate - Last Filed: 08/21/18 13:16> (2) Foot ulcer, left Qualifiers: Non-pressure ulcer stage: unspecified non-pressure ulcer stage Qualified Code(s): L97.529 - Non-pressure chronic ulcer of other part of left foot with unspecified severity (5) Leukocytosis Qualifiers: Leukocytosis type: unspecified Qualified Code(s): D72.829 - Elevated white blood cell count, unspecified (7) Hodgkin lymphoma Qualifiers: Hodgkin lymphoma type: unspecified type Lymphoma site: multiple regions Qualified Code(s): C81.98 - Hodgkin lymphoma, unspecified, lymph nodes of multiple sites <Yuri Dasilva - Last Filed: 08/21/18 16:40> (3) Foot ulcer, left Qualifiers: Non-pressure ulcer stage: unspecified non-pressure ulcer stage Qualified Code(s): L97.529 - Non-pressure chronic ulcer of other part of left foot with unspecified severity (4) Leukocytosis Qualifiers: Leukocytosis type: unspecified Qualified Code(s): D72.829 - Elevated white blood cell count, unspecified (11) Non-Hodgkin lymphoma Qualifiers: Non-Hodgkin lymphoma type: unspecified type Lymphoma site: inguinal Qualified Code(s): C85.95 - Non-Hodgkin lymphoma, unspecified, lymph nodes of inguinal region and lower limb
--- NOTE | 2018-08-21 14:37 | Podiatry Progress Note ---
Date of Encounter: 08/21/18 Time of Encounter: 12:35 - Assessment and Plan (1) Chronic ulcer of great toe of left foot with fat layer exposed Current Visit: Yes Status: Acute Assessment: Her stage 2 ulceration Plan: Appears stable Reports nursing changed dressing today Continue with local wound care (2) Gangrene of toe of right foot Current Visit: Yes Status: Acute Assessment: Gangrene right digit #3 Plan: TMA tomorrow with Dr. Flower, add on case NPO after MN Dressing changed by nursing today Consent signed and placed in chart Subjective Interval history: Patient awake sitting on side of bed. Alert and oriented x 3. Patient denies any overnight events. Denies fevers, chills, nausea, vomiting, or diarrhea. Denies any calf pain, chest pain, or shortness of breath. Discussed with patient plan for TMA tomorrow. Patient verbalized understanding and consent was signed and placed in chart. Objective - Vital Signs Vital Signs: Vital Signs Temp Pulse Resp BP Pulse Ox 08/21/18 10:57 98.7 F 77 19 102/67 98 08/21/18 07:20 18 98 08/21/18 07:17 98.5 F 87 19 123/72 99 08/21/18 06:21 85 08/21/18 04:49 99.1 F 99 16 126/61 96 08/20/18 20:56 19 98 08/20/18 20:33 99.0 F 80 16 117/60 99 Intake and Output 08/20/18 08/21/18 08/21/18 23:59 07:59 15:59 Intake Total 120 / 1210 20 / 500 480 / 500 Output Total 1700 / 2550 1690 / 2680 990 / 2680 Balance -1580 / -1340 -1670 / -2180 -510 / -2180 Intake: IV Fluids 120 / 570 20 / 20 Maxipime 2,000 MG In Water for 20 20 inj. (sterile) 20 ML @ 300 mls/ hr IVP Q12HR [facility] Rx#:[id number] Zosyn 3.375 GM In 0.9 % Sodium 100 / 300 Chloride (Mini-Bag +) 100 ML @ 25 mls/hr IVPB Q8H [facility] Rx#: [id number] Oral 0 / 640 480 / 480 Output: Urine 1700 / 2550 1690 / 2680 990 / 2680 Other: Meal Dinner Lunch Percent of Meal Consumed 100% 100% Weight 138 kg Blood Glucose* 104 98 92 Patient Weight 08/21/18 23:59 Weight 138 kg - Exam Exam: Constitiutional: Alert and oriented x 3. Well nourished. No acute distress noted Vascular: 1/4 DP/PT bilaterally, CFT <3 sec to all digits LLE, warm to warm from tibia to toes bilaterally, no calf pain with squeeze, digit amputation to right foot x 2, ischemic toe #3 right foot, 2/4 edema right foot Neurologic: Absent sensation to touch, normal plantar response, Dermatologic: Ischemic toe #3 right foot, foul odor noted, left hallux medial her stage 2 ulceration, wound bed pink in color, minimal drainage noted Musculoskeletal: 3/5 muscle strength and normal tone bilaterally. - Lab Result Diagrams: 08/21/18 04:15 08/21/18 04:15 Labs: Abnormal lab results WBC 14.2 K/mcL (4.3-11.1) H 08/21/18 04:15 RBC 3.32 M/mcL (4.19-5.50) L 08/21/18 04:15 Hgb 8.8 g/dL (12.9-16.9) L 08/21/18 04:15 Hct 28.7 % (37.5-50.1) L 08/21/18 04:15 MCH 26.5 pg (28.0-33.3) L 08/21/18 04:15 MCHC 30.7 g/dL (31.6-35.5) L 08/21/18 04:15 RDW 16.7 % (11.5-14.5) H 08/21/18 04:15 Plt Count 586 K/mcL (140-400) H 08/21/18 04:15 MPV 9.2 fL (9.4-12.4) L 08/20/18 05:47 10.8 K/mcL (1.6-8.9) H 08/21/18 04:15 PT 13.6 Seconds (9.4-12.1) H 08/20/18 05:47 Sodium 134 mEq/L (136-145) L 08/21/18 04:15 Potassium 5.3 mEq/L (3.5-5.1) H 08/21/18 04:15 Chloride 96 mEq/L (98-107) L 08/20/18 05:47 BUN 47 mg/dL (6-20) H 08/21/18 04:15 2.85 mg/dL (0.70-1.30) H 08/21/18 04:15 Est GFR ( Amer) 29 (> 60) L 08/21/18 04:15 Est GFR (Non-Af Amer) 24 (> 60) L 08/21/18 04:15 POC Glucose 104 mg/dL (70-99) H 08/20/18 20:32 6.5 % (-5.6) H 08/18/18 19:07 279 (280-300) L 08/20/18 05:47 Calcium 8.1 mg/dL (8.6-10.3) L 08/21/18 04:15 Phosphorus 5.8 mg/dL (2.7-4.5) H 08/19/18 05:33 Protein/Creatinin Ratio 1.36 mg/mg (0.00-0.20) H 08/20/18 Unknown 61 mg/dL (1-14) H 08/20/18 Unknown Consult Discharge Plan - Plan Referrals: Roslyn Cooper MD [Primary Care Provider] -
[2018-08-21] MEDS: MetroNIDAZOLE 500 MG/100 ML 500 MG/100 ML BAG IVPB SCH (16:14)
--- NOTE | 2018-08-21 23:26 | Anesthesia Evaluation PreOp ---
<Shelli Turcios - Last Filed: 08/21/18 23:24> Date of Encounter: 08/21/18 - Past History Planned Operation: R-Amputation of Metatarsals 1,3,5 re: gangrene Cardiac History: LA, HTN, Hyperlipidemia, Arrhythmia (AFib,), Other (Hx Aortic Aneurysm) Pulmonary History: COPD (on Home O2), CARLOS A Dx AUTOMOBILE APPRAISER History: Other (L-foot ulcer, Lymphadenopathy/R-groin mass) Other Medical History: Renal (Stage 3 CKDz), Other (Non-Hodgkins Lymphoma/Cancer,) Anesthesia History: No Prior Anesthetic Complications, Past Anesthesia (CTR, EGD/Colon, Toe Amputations x 2) Alcohol Use: none Drug use: none Medications and Allergies Albuterol Sulfate [Ventolin Hfa] 2 puff PO Q46H PRN 08/19/18 [History] Clopidogrel [Plavix] 75 mg PO DAILY 08/19/18 [History] Ergocalciferol (VITAMIN D2) [Vitamin D2] 50,000 units PO QWEEK 08/19/18 [History] Ferrous Sulfate 325 mg PO DAILY 08/19/18 [History] Fluticasone Furoate [Arnuity Ellipta] 2 puff PO DAILY 08/19/18 [History] Folic Acid 1 mg PO DAILY 08/19/18 [History] Furosemide [Lasix] 20 mg PO DAILY 08/19/18 [History] Gabapentin [Neurontin] 800 mg PO TID 08/19/18 [History] Lansoprazole [Prevacid] 30 mg PO DAILY PRN 08/19/18 [History] Loratadine [Claritin] 10 mg PO DAILY 08/19/18 [History] Metoprolol Succinate 25 mg PO DAILY 08/19/18 [History] Simvastatin [Zocor] 40 mg PO HS 08/19/18 [History] Allergy/AdvReac Type Severity Reaction Status Date / Time levofloxacin [From Levaquin] Allergy Anaphylaxis Verified 08/19/18 12:50 sulfamethoxazole Allergy Anaphylaxis Verified 08/19/18 12:50 [From Bactrim] trimethoprim [From Bactrim] Allergy Anaphylaxis Verified 08/19/18 12:50 nicotine [From Nicoderm CQ] AdvReac Itching Verified 08/19/18 12:50 Varenicline [From Chantix] AdvReac Itching Verified 08/19/18 12:50 venlafaxine [From Effexor] AdvReac Fatigued Verified 08/19/18 12:50 - Meds/Allergy Pre-op Review Medications Reviewed: Yes Allergies Reviewed: Yes Beta Blockers on Current Med List: Yes (Metoprolol) Anesthesia Results - Labs 08/21/18 04:15 08/21/18 04:15 Laboratory Tests 08/18/18 08/20/18 08/21/18 19:07 05:47 04:15 PT 13.6 H INR 1.2 APTT 31.8 Est GFR (Non-Af Amer) 24 L Est Mean Plasma Glucose 140 Hemoglobin A1c 6.5 H Calcium 8.1 L - Imaging EKG: report reviewed (94bpm - SINUS RHYTHM LOW QRS VOLTAGE IN PRECORDIAL LEADS NONSPECIFIC T-WAVE ABNORMALITY Electronically Signed On 03-04-15 14:57:48 EST by Juanpablo Lopez DO) Anesthesia Exam Vital Signs Temp Pulse Resp BP Pulse Ox 08/21/18 20:52 17 97 08/21/18 19:25 97.4 F L 72 16 110/64 95 08/21/18 15:30 98.1 F 77 19 109/72 93 08/21/18 10:57 98.7 F 77 19 102/67 98 08/21/18 07:20 18 98 08/21/18 07:17 98.5 F 87 19 123/72 99 08/21/18 06:21 85 08/21/18 04:49 99.1 F 99 16 126/61 96 Intake and Output Patient Weight 08/21/18 23:59 Weight 138 kg Height: 6' Weight: 304# BMI = 41 NPO (# of Hours): MNoc Anesthesia Assess/Plan ASA Score: 4 (MO/BMI = 41, Lymphoma, HTN, Chol, Stage 3 CKDz, DM,) Anesthetic Plan: General Monitoring Plan: Standard Monitors Recovery Plan: PACU <Mell Clemons - Last Filed: 08/22/18 15:14> Date of Encounter: 08/22/18 Time of Encounter: 15:13 - Past History Cardiac History: Other (Hx Aortic Aneurysm, anemia) Pulmonary History: Former smoker, COPD (always uses 3L oxygen) Other Medical History: Diabetes Type II (no longer uses insulin), Other (Non-Hodgkins Lymphoma/Cancer, BMI 42) - Meds/Allergy Pre-op Review If Beta Blockers taken, Date/Time (Last Dose taken): 08-22-18 metoprolol 8:35 Anesthesia Results - Labs 08/22/18 10:28 08/22/18 10:28 Anesthesia Exam - HEENT Pupil (Motor): Pupils equal, EOMI Mallampati: III Teeth: Edentulous Oral Opening: Greater than 3 - AUTOMOBILE APPRAISER LOC: Oriented - Cardiac Rhythm: Regular Murmur: None - Pulmonary Breath Sounds: bilateral Clear Respiratory Effort: Symmetrical Anesthesia Assess/Plan Level of consciousness: Cooperative Anesthetic Plan: MAC
[2018-08-22] MEDS: MetroNIDAZOLE 500 MG/100 ML 500 MG/100 ML BAG IVPB SCH ×4 (01:00→23:15)
[2018-08-22] MEDS: 0.9 % Sodium Chloride 1,000 ML IVC SCH ×2 (04:19→23:15)
[2018-08-22] MEDS: Cefepime HCl 2,000 MG in Water for inj. (sterile) 20 ML 20 ML IVP SCH ×2 (04:20→18:55)
[2018-08-22] MEDS ORDERED: Bacitracin 50,000 UNIT, Sodium Chloride IRRigation 1,000 ML IR ONE ×2 (06:00→17:26)
[2018-08-22] MEDS: MOMETASONE FUROATE 100 mcg Inhaler IH SCH ×2 (07:55→20:38)
[2018-08-22] MEDS: Metoprolol XL (24 HR) Succ 25 MG TAB.ER.24H PO SCH (08:35)
[2018-08-22] MEDS: Loratadine 10 MG TABLET PO SCH (08:36)
[2018-08-22] MEDS: Folic Acid 1 MG TABLET PO SCH (08:36)
[2018-08-22] MEDS: Insulin LISPRO 300 UNITS/3 ML VIAL SQ SCH ×2 (08:36→11:47)
--- NOTE | 2018-08-22 08:44 | Internal Med Progress Note ---
<Shubham Shields - Last Filed: 08/22/18 17:52> Hospitalist Progress Note - Encounter Date of Encounter: 08/22/18 Time of Encounter: 09:50 - Subjective Interval History: Patient is resting in bed at time of examination. He is comfortable at this time although he does say that he has pain in his right foot. He has no other acute complaints today. He is scheduled to go to the OR dictation of the digits of his right foot today with Dr. Flower. - Exam Vitals: Temp Pulse Resp BP Pulse Ox 97.6 F 66 18 114/67 100 08/22/18 06:50 08/22/18 06:50 08/22/18 06:50 08/22/18 06:50 08/22/18 06:50 Exam: GEN: No acute distress, A&O3 HEAD: Atraumatic, normocephalic EYES: Pupils symmetric, sclera white, conjunctiva pink HEART: RRR, normal S1 and S2, no murmurs LUNGS: Clear to auscultation bilaterally, no wheezes, rhonchi, or crackles ABD: Soft, nontender, nondistended, bowel sounds present NEURO: No focal deficits, cooperative with exam EXT: Edema of the bilateral lower extremity (R>L), pitting edema RLE with erythema of the right foot and calf. Dressing placed over right foot which I did not remove pre-op. - Assessment and Plan (1) Gangrene of toe of right foot Current Visit: Yes Status: Acute Assessment and Plan: Gangrene of right third toe, scheduled for amputation in OR with podiatry today Vitals appear stable, No evidence of worsened systemic infection Continue vancomycin, cefepime, Flagyl Continue pain regimen (2) Foot ulcer, left Current Visit: Yes Status: Acute Assessment and Plan: Two Right inguinal mass approximately 2 x 2 centimeters with tenderness to palpation Patient has history of non-Hodgkin's lymphoma now with what appears to be a recurrence Currently followed by oncology and recently had CT scan of the chest, abdomen, pelvis showing evidence of mild progression of lymphoma with slight increase in size and multiple abnormally enlarged lymph nodes in the chest, pelvis and groin - he has outpatient follow-up with his oncologist on 08/27/18 Will not consult oncology at this time as infection more pressing issue (3) Morbid obesity with BMI of 40.0-44.9, adult Current Visit: Yes Status: Chronic (4) Chronic respiratory failure with hypoxia Current Visit: Yes Status: Chronic (5) Non-Hodgkin lymphoma Current Visit: Yes Status: Acute Assessment and Plan: Chronic (6) DVT prophylaxis Current Visit: Yes Status: Acute (7) Acute kidney injury superimposed on CKD Current Visit: Yes Status: Acute Assessment and Plan: Unclear baseline - per patient report hx of CKD stage III Non-oliguric ISIDRO on CKD - Renal function worse today with SCr to 2.92 and GFR 23 We have been giving gentle fluids without significant success Avoid nephrotoxins as able - will stop lasix Continue vancomycin at this time Strict I/O's, having good UOP Add renal modification to his diet Plan for likely nephrology consult in the morning pending labs - Time Spent with Patient Total time spent is greater than 50% in coordination of care (as documented) at patient's floor/unit and/or counseling patient: Internal Medicine: Result - Labs CBC & Chem 7: 08/22/18 10:28 08/22/18 10:28 - ABG Interpretation ABG results: PT/INR, D-dimer PT 13.6 Seconds (9.4-12.1) H 08/20/18 05:47 Consult Discharge Plan - Plan Referrals: Roslyn Cooper MD [Primary Care Provider] - <Prashanth Adams - Last Filed: 08/22/18 18:37> Hospitalist Progress Note - Encounter Date of Encounter: 08/22/18 - Assessment and Plan (1) Gangrene of toe of right foot Current Visit: Yes Status: Acute (2) Foot ulcer, left Current Visit: Yes Status: Acute (3) Morbid obesity with BMI of 40.0-44.9, adult Current Visit: Yes Status: Chronic (4) Chronic respiratory failure with hypoxia Current Visit: Yes Status: Chronic (5) Non-Hodgkin lymphoma Current Visit: Yes Status: Acute (6) Acute kidney injury superimposed on CKD Current Visit: Yes Status: Acute Internal Medicine: Result - Labs CBC & Chem 7: 08/22/18 10:28 08/22/18 10:28 Labs: Short CBC 08/22/18 Range/Units 10:28 WBC 11.6 H (4.3-11.1) K/mcL Hgb 8.9 L (12.9-16.9) g/dL Hct 29.2 L (37.5-50.1) % Plt Count 545 H (140-400) K/mcL Neutrophils # 8.2 (1.6-8.9) K/mcL BMP 08/22/18 10:28 Sodium 132 L Potassium 4.6 Chloride 101 Carbon Dioxide 27 BUN 52 H Creatinine 2.92 H Glucose 98 Calcium 7.8 L - ABG Interpretation ABG results: PT/INR, D-dimer PT 13.6 Seconds (9.4-12.1) H 08/20/18 05:47 - Attending Attestation Patient seen and examined independently, including review of objective data including labs. I agree with plan of care as documented above by the resident with the following comments: Pt w gangrene of his R 3rd toe. Notably, exam reveals absent 2nd and 4th toes, which he says have been amputated for infections in the past. He says this problem started with small ulcer on superior aspect of toe for which he was following w wound clinic, and then over weekend it got painful and turned black. Pt currently on vanc, cefepime, and flagyl. Plan for amputation in OR by podiatry today with intraop samples sent for culture. Also has ISIDRO with progressively worsening creatinine and BUN, although today K did decrease back to less 5. Continue abx, dose adjusted for renal function, and encourage h ydration. Glycemic control is good. <Shubham Shields - Last Filed: 08/22/18 17:52> (2) Foot ulcer, left Qualifiers: Non-pressure ulcer stage: unspecified non-pressure ulcer stage Qualified Code(s): L97.529 - Non-pressure chronic ulcer of other part of left foot with unspecified severity (5) Non-Hodgkin lymphoma Qualifiers: Non-Hodgkin lymphoma type: unspecified type Lymphoma site: inguinal Qualified Code(s): C85.95 - Non-Hodgkin lymphoma, unspecified, lymph nodes of inguinal region and lower limb <Prashanth Adams - Last Filed: 08/22/18 18:37> (2) Foot ulcer, left Qualifiers: Non-pressure ulcer stage: unspecified non-pressure ulcer stage Qualified Code(s): L97.529 - Non-pressure chronic ulcer of other part of left foot with unspecified severity (5) Non-Hodgkin lymphoma Qualifiers: Non-Hodgkin lymphoma type: unspecified type Lymphoma site: inguinal Qualifie d Code(s): C85.95 - Non-Hodgkin lymphoma, unspecified, lymph nodes of inguinal region and lower limb
[2018-08-22] MEDS ORDERED: Gabapentin 400 MG CAPSULE PO SCH (09:00)
[2018-08-22 10:50] LABS: Basophils # 0.1 K/mcL (0.0-0.2); Basophils % 0.6 %; Eosinophils # 0.2 K/mcL (0.0-0.6); Eosinophils % 1.6 %; Hematocrit 29.2 % (37.5-50.1); Hemoglobin 8.9 g/dL (12.9-16.9); Lymphocytes % 17.4 %; Mean Corpuscular HGB Conc 30.5 g/dL (31.6-35.5); Mean Corpuscular Hemoglobin 26.8 pg (28.0-33.3); Mean Platelet Volume 8.9 fL (9.4-12.4); Monocytes % 8.5 %; Neutrophils # 8.2 K/mcL (1.6-8.9); Platelet Count 545 K/mcL (140-400); Red Blood Count 3.32 M/mcL (4.19-5.50); Red Cell Distribution Width 16.6 % (11.5-14.5); Segmented Neutrophils % 70.9 %
[2018-08-22 11:43] LABS: Potassium 4.6 mEq/L (3.5-5.1)
[2018-08-22 11:44] LABS: Calcium 7.8 mg/dL (8.6-10.3)
[2018-08-22] MEDS ORDERED: Propofol 500 MG/50 ML INFUS..BTL ONE (15:01)
[2018-08-22] MEDS ORDERED: *HR* FentaNYL (PF) 100 MCG/2 ML VIAL ONE (15:01)
[2018-08-22] MEDS ORDERED: *HR* Midazolam HCl 2 MG/2 ML VIAL ONE (15:01)
[2018-08-22] MEDS ORDERED: *HR* Propofol 200 MG/20 ML VIAL IVP ONE (15:01)
[2018-08-22] MEDS ORDERED: Bupivacaine/EPI 1:200k 0.25%PF 10 ML VIAL INFILT ONE (15:06)
--- NOTE | 2018-08-22 15:10 | Podiatry Progress Note ---
Date of Encounter: 08/22/18 Time of Encounter: 14:35 - Assessment and Plan (1) Cellulitis of right toe Current Visit: Yes Status: Acute Discussed condition and my findings with patient. Discussed with patient amputation of toes 1,3 and 5. Patient says he wants the toes off. Discussed nature the procedure, risks versus benefits potential complications consequences of surgery and his condition at length. No guarantees were made that he would not have future ulcerations but to give him less of a chance of recurrent problems and ulcerations I think amputation of these digits would be in his interest. All of his questions were answered patient in agreement with this plan and will proceed with amputation of toes 1,3 and 5. (2) Chronic ulcer of great toe of left foot with fat layer exposed Current Visit: Yes Status: Acute Objective - Vital Signs Vital Signs: Vital Signs Temp Pulse Resp BP Pulse Ox 08/22/18 13:53 97.7 F 70 19 112/67 100 08/22/18 11:00 97.6 F 66 19 108/72 100 08/22/18 06:50 97.6 F 66 18 114/67 100 08/22/18 04:06 97.3 F L 70 16 138/76 99 08/21/18 20:52 17 97 08/21/18 19:25 97.4 F L 72 16 110/64 95 08/21/18 15:30 98.1 F 77 19 109/72 93 Intake and Output 08/21/18 08/22/18 08/22/18 23:59 07:59 15:59 Intake Total 1055 / 1915 885 / 885 0 / 885 Output Total 600 / 3280 1700 / 2100 400 / 2100 Balance 455 / -1365 -815 / -1215 -400 / -1215 Intake: IV Fluids 335 / 715 885 / 885 0.9 % Sodium Chloride 1,000 ML 215 / 215 785 / 785 @ 75 mls/hr IVC .[id number] [facility] Rx #:[id number] Maxipime 2,000 MG In Water for inj. (sterile) 20 ML @ 300 mls/ hr IVP Q12HR [facility] Rx#:[id number] Flagyl Premix 500 MG/100 ML 500 100 / 100 100 / 100 mg In 100 ml @ 100 mls/hr IVPB Q8HR [facility] Rx#:[id number] Oral 720 / 1200 0 / 0 0 / 0 Output: Urine 600 / 3280 1700 / 2100 400 / 2100 Other: Meal Dinner BREAKFAST NPO Percent of Meal Consumed 100% 0% Weight 139.2 kg Blood Glucose* 130 118 104 Patient Weight 08/22/18 23:59 Weight 139.2 kg - Lab Result Diagrams: 08/22/18 10:28 08/22/18 10:28 Labs: Abnormal lab results WBC 11.6 K/mcL (4.3-11.1) H 08/22/18 10:28 RBC 3.32 M/mcL (4.19-5.50) L 08/22/18 10:28 Hgb 8.9 g/dL (12.9-16.9) L 08/22/18 10:28 Hct 29.2 % (37.5-50.1) L 08/22/18 10:28 MCH 26.8 pg (28.0-33.3) L 08/22/18 10:28 MCHC 30.5 g/dL (31.6-35.5) L 08/22/18 10:28 RDW 16.6 % (11.5-14.5) H 08/22/18 10:28 Plt Count 545 K/mcL (140-400) H 08/22/18 10:28 MPV 8.9 fL (9.4-12.4) L 08/22/18 10:28 10.8 K/mcL (1.6-8.9) H 08/21/18 04:15 PT 13.6 Seconds (9.4-12.1) H 08/20/18 05:47 Sodium 132 mEq/L (136-145) L 08/22/18 10:28 Potassium 5.3 mEq/L (3.5-5.1) H 08/21/18 04:15 Chloride 96 mEq/L (98-107) L 08/20/18 05:47 BUN 52 mg/dL (6-20) H 08/22/18 10:28 2.92 mg/dL (0.70-1.30) H 08/22/18 10:28 Est GFR ( Amer) 28 (> 60) L 08/22/18 10:28 Est GFR (Non-Af Amer) 23 (> 60) L 08/22/18 10:28 POC Glucose 118 mg/dL (70-99) H 08/22/18 05:30 6.5 % (-5.6) H 08/18/18 19:07 279 (280-300) L 08/20/18 05:47 Calcium 7.8 mg/dL (8.6-10.3) L 08/22/18 10:28 Phosphorus 5.8 mg/dL (2.7-4.5) H 08/19/18 05:33 Protein/Creatinin Ratio 1.36 mg/mg (0.00-0.20) H 08/20/18 Unknown 61 mg/dL (1-14) H 08/20/18 Unknown Consult Discharge Plan - Plan Referrals: Roslyn Cooper MD [Primary Care Provider] -
[2018-08-22] MEDS ORDERED: Lidocaine -MPF 2% 2 ML VIAL ONE (15:16)
[2018-08-22] MEDS ORDERED: Lidocaine 1% 20 ML MDV ONE (15:16)
--- NOTE | 2018-08-22 15:18 | Operative Note ---
Date of procedure: 08/22/18 Pre-op diagnosis: infection 3rd toe right foot Post-op diagnosis: same Procedure: amputation toes 1,3,5 right foot Implants: none Complications: none Anesthesia: MAC Local Anesthetics: 1% Lidocaine HCL SubQ (cc) Surgeon: Williams Flower Was there an microbiology lab assistant present: No Estimated blood loss (cc): 15 Specimen: toes 1,3,5 path, toe 3-soft tissue and bone micro Condition: stable Disposition: PACU Procedure in Detail: indications: 47 year old male with chronic kidney disease and previous amputation of digits 2,4 now with infection of the third toe being brought to the operating room with infection and amputation of toes 1,3,5 after having the nature of the procedure, risks versus benefits potential complications consequences of surgery and his condition discussed at length. Patient in agreement to amputate the remainder of his toes and not leave 1 and 5 which she also thinks will be problematic in the future and says he does not know how reliably he will be able to follow-up. All of his questions were answered and the informed consent was signed. No guarantees were made to the outcome of any procedure. Patient understood that he could have a wound to heal and if there was purulent drainage present at the third toe amputation site and may be left open to drain. Patient was taken from the preoperative holding area and operating room placed on the operating room table in the supine position. 1% lidocaine plain was injected into the patient's right foot. The right foot was scrubbed prepped and draped in the usual sterile fashion and the following proc edures began. A tourniquet was applied but not inflated during the entire procedure. Amputation of toes 1 and 5 left foot. Attention was directed to the dorsal aspect of the patient's right foot #15 blade used to make an incision over the metatarsophalangeal joints of digits 1 and 5. The incision was full-thickness and down to the level of the bone. A racquet type incision was made and the toe was freed from its soft tissue attachments and disarticulated at the metatarsophalangeal joint. The flexors and extensor tendons of both the first and the fifth digit were identified and traced as far proximal in the surgical wound and resected. No devitalized tissue was present. No signs of infection present and site was deemed adequate for closure. Site was flushed with normal sterile saline. 3-0 Vicryl was used to close the subcutaneous and deep tissue and 3-0 Prolene was used to reapproximate the skin. Attention was then directed to the third digit which was infected. Amputation of the third digit left foot. A #15 blade was used to make a racquet type incision around the third digit. Purulent drainage was expressed around the proximal aspect of the incision. Is also purulent drainage surrounding the base of the proximal phalanx of the level of the metatarsophalangeal joint. Devitalized tissue was present at this level. #15 blade was used to resect devitalized tissue. The cartilage at the third metatarsal head was noted to be soft and the sagittal saw was used to resect the third metatarsal head and there was bleeding bone present at the site of resection. No purulence could be expressed at this level further. The toe was disarticulated at the metatarsophalangeal joint and sent to microbiology and pathology. Toes 1 and 5 were also sent with the third digit pathology. As there was purulent drainage previously present at the level of the metatarsophalangeal joint incision was made to leave the area open and pack it. A couple of retention sutures were pl aced with Prolene and gauze packed into the amputation site. Sterile bandage consisting of Adaptic, 4 x 4 gauze and ABDs Kerlix and Srikanth wrap was applied. The patient tolerated the anesthesia and the procedure well. There was adequate hemostasis at the conclusion of the procedure. Patient will return to the floor where he will continue IV antibiotics.
[2018-08-22] MEDS ORDERED: MetroNIDAZOLE 500 MG/100 ML 500 MG/100 ML BAG IVPB ONE (15:24)
[2018-08-22] MEDS ORDERED: EPHEDrine 50 MG/ML VIAL ONE (15:44)
[2018-08-22] MEDS ORDERED: Ondansetron 4 MG/2 ML VIAL ONE (16:13)
[2018-08-22] MEDS ORDERED: Dexamethasone 4 MG/ML VIAL ONE (16:13)
--- NOTE | 2018-08-22 17:02 | Anesthesia Evaluation Post Op ---
Date of Encounter: 08/22/18 Time of Encounter: 17:01 - Vital Signs Vital Signs: Last Vital Signs Temp 97.5 F L 08/22/18 16:55 Pulse 72 08/22/18 16:55 Resp 15 08/22/18 16:55 BP 104/66 08/22/18 16:55 Pulse Ox 97 08/22/18 16:55 - Lungs Lungs: Clear Ascult./Percussion - Airway Airway: Non-obstructed - Cardiovascular Regular Rate - Mental Status Mental Status: Alert & Oriented, Answers Appropriately - Pain Pain Scale: 2 - Nausea Vomiting Nausea Vomiting: Not Present - Hydration Hydration: NPO - Discharge PostOp Status: Transfer Patient to floor
[2018-08-22] MEDS ORDERED: *HR* Dextrose 50 % in Water (Syg) 50 ML SYRINGE IVP PRN (17:26)
[2018-08-22] MEDS ORDERED: Dextrose Gel 15 GM/37.5 ML TUBE PO PRN ×2 (17:26)
[2018-08-22] MEDS ORDERED: OXYCODONE Oral CONC 10 MG/0.5 ML ORAL.SYG SL PRN (17:26)
[2018-08-22] MEDS ORDERED: Naloxone 0.4 MG/ML INJ IVP PRN (17:26)
[2018-08-22] MEDS ORDERED: D5% in Water 1,000 ML IVC PRN (17:26)
[2018-08-22] MEDS ORDERED: Acetaminophen 325 MG TABLET PO PRN (17:26)
[2018-08-22] MEDS ORDERED: Vancomycin 1 EACH in 0.9 % Sodium Chloride 250 ML IVPB SCH (17:26)
[2018-08-22] MEDS ORDERED: Insulin LISPRO 300 UNITS/3 ML VIAL SQ SCH (18:00)
[2018-08-22] MEDS: OXYCODONE Oral CONC 10 MG/0.5 ML ORAL.SYG SL PRN ×2 (19:00→21:19)
[2018-08-22] MEDS: Gabapentin 400 MG CAPSULE PO SCH (21:18)
[2018-08-23 05:13] LABS: Basophils % 0.2 %; Eosinophils % 0.2 %; Hemoglobin 8.2 g/dL (12.9-16.9); Immature Granulocytes % 1.7 % (0-4); Lymphocytes # 0.8 K/mcL (0.6-4.6); Lymphocytes % 6.7 %; Mean Corpuscular HGB Conc 30.4 g/dL (31.6-35.5); Mean Corpuscular Hemoglobin 26.6 pg (28.0-33.3); Mean Corpuscular Volume 87.7 fL (83.0-100.0); Mean Platelet Volume 9.4 fL (9.4-12.4); Monocytes # 0.3 K/mcL (0.0-1.3); Monocytes % 2.8 %; Neutrophils # 10.7 K/mcL (1.6-8.9); Platelet Count 538 K/mcL (140-400); Red Blood Count 3.08 M/mcL (4.19-5.50); Red Cell Distribution Width 16.7 % (11.5-14.5); Segmented Neutrophils % 88.4 %
[2018-08-23 05:18] LABS: Calcium 8.1 mg/dL (8.6-10.3); Potassium 5.5 mEq/L (3.5-5.1)
[2018-08-23] MEDS: OXYCODONE Oral CONC 10 MG/0.5 ML ORAL.SYG SL PRN ×4 (05:19→20:48)
[2018-08-23] MEDS: Cefepime HCl 2,000 MG in Water for inj. (sterile) 20 ML 20 ML IVP SCH ×2 (05:20→18:22)
[2018-08-23] MEDS: MOMETASONE FUROATE 100 mcg Inhaler IH SCH ×2 (07:40→23:13)
--- NOTE | 2018-08-23 08:26 | Internal Med Progress Note ---
<Shubham Shields - Last Filed: 08/23/18 16:37> Hospitalist Progress Note - Encounter Date of Encounter: 08/23/18 Time of Encounter: 09:45 - Subjective Interval History: The patient is sitting in bed at time of examination. He is one day postop and is not having significant pain. He has no acute complaints at this time. He di d continue to make good urine output overnight - Exam Vitals: Temp Pulse Resp BP Pulse Ox 97.6 F 71 16 133/75 100 08/23/18 07:50 08/23/18 07:50 08/23/18 07:50 08/23/18 07:50 08/23/18 07:50 Exam: GEN: No acute distress, A&O3 HEAD: Atraumatic, normocephalic EYES: Pupils symmetric, sclera white, conjunctiva pink HEART: RRR, normal S1 and S2, no murmurs LUNGS: Clear to auscultation bilaterally, no wheezes, rhonchi, or crackles ABD: Soft, nontender, nondistended, bowel sounds present NEURO: No focal deficits, cooperative with exam EXT: Edema of the bilateral lower extremity (R>L), pitting edema RLE with erythema of the right foot and calf. Dressing placed over right foot which I did not remove pre-op. - Assessment and Plan (1) Gangrene of toe of right foot Current Visit: Yes Status: Acute Assessment and Plan: POD#1 Right Third toe amputation Vitals appear stable, No evidence of worsened systemic infection Continue cefepime, Flagyl, stop vancomycin Continue pain regimen (2) Foot ulcer, left Current Visit: Yes Status: Acute Assessment and Plan: 2 x 2 centimeter ulceration of the medial aspect of the right first toe No surrounding erythema. No significant purulent drainage Continue wound care Appreciate podiatry input (3) Morbid obesity with BMI of 40.0-44.9, adult Current Visit: Yes Status: Chronic (4) Chronic respiratory failure with hypoxia Current Visit: Yes Status: Chronic (5) Non-Hodgkin lymphoma Current Visit: Yes Status: Acute Assessment and Plan: Two Right inguinal mass approximately 2 x 2 centimeters with tenderness to palpation Patient has history of non-Hodgkin's lymphoma now with what appears to be a recurrence Currently followed by oncology and recently had CT scan of the chest, abdomen, pelvis showing evidence of mild progression of lymphoma with slight increase in size and multiple abnormally enlarged lymph nodes in the chest, pelvis and groin - he has outpatient follow-up with his oncologist on 08/27/18 Will not consult oncology at this time as infection more pressing issue (6) Acute kidney injury superimposed on CKD Current Visit: Yes Status: Acute Assessment and Plan: Unclear baseline - per patient report hx of CKD stage III Non-oliguric ISIDRO on CKD - Renal function worse today with SCr to 2.86 and GFR 24 We have been giving gentle fluids without significant success Avoid nephrotoxins as able - will stop lasix Strict I/O's, having good UOP Add renal modification to his diet Retroperitoneal US Urine eosinophils Consult nephrology - Time Spent with Patient Total time spent is greater than 50% in coordination of care (as documented) at patient's floor/unit and/or counseling patient: Internal Medicine: Result - Labs CBC & Chem 7: 08/23/18 03:11 08/23/18 03:11 Labs: Short CBC 08/22/18 08/23/18 Range/Units 10:28 03:11 WBC 11.6 H 12.1 H (4.3-11.1) K/mcL Hgb 8.9 L 8.2 L (12.9-16.9) g/dL Hct 29.2 L 27.0 L (37.5-50.1) % Plt Count 545 H 538 H (140-400) K/mcL Neutrophils # 8.2 10.7 H (1.6-8.9) K/mcL BMP 08/22/18 08/23/18 10:28 03:11 Sodium 132 L 132 L Potassium 4.6 5.5 H Chloride 101 98 Carbon Dioxide 27 25 BUN 52 H 52 H Creatinine 2.92 H 2.86 H Glucose 98 159 H Calcium 7.8 L 8.1 L - ABG Interpretation ABG results: PT/INR, D-dimer PT 13.6 Seconds (9.4-12.1) H 08/20/18 05:47 Consult Discharge Plan - Plan Referrals: Roslyn Cooper MD [Primary Care Provider] - <Prashanth Adams - Last Filed: 08/23/18 23:14> Hospitalist Progress Note - Encounter Date of Encounter: 08/23/18 - Assessment and Plan (1) Gangrene of toe of right foot Current Visit: Yes Status: Acute (2) Foot ulcer, left Current Visit: Yes Status: Acute (3) Morbid obesity with BMI of 40.0-44.9, adult Current Visit: Yes Status: Chronic (4) Chronic respiratory failure with hypoxia Current Visit: Yes Status: Chronic (5) Non-Hodgkin lymphoma Current Visit: Yes Status: Acute (6) Acute kidney injury superimposed on CKD Current Visit: Yes Status: Acute - Time Spent with Patient Total time spent is greater than 50% in coordination of care (as documented) at patient's floor/unit and/or counseling patient: Internal Medicine: Result - Labs CBC & Chem 7: 08/23/18 03:11 08/23/18 03:11 Labs: Short CBC 08/23/18 Range/Units 03:11 WBC 12.1 H (4.3-11.1) K/mcL Hgb 8.2 L (12.9-16.9) g/dL Hct 27.0 L (37.5-50.1) % Plt Count 538 H (140-400) K/mcL Neutrophils # 10.7 H (1.6-8.9) K/mcL BMP 08/23/18 03:11 Sodium 132 L Potassium 5.5 H Chloride 98 Carbon Dioxide 25 BUN 52 H Creatinine 2.86 H Glucose 159 H Calcium 8.1 L Urine 08/23/18 Range/Units 12:33 Urine Color Green A (Yellow) Urine Clarity Cloudy A (Clear) Urine pH 5.5 (5.0-8.0) pH Units Ur Specific [place] 1.018 (1.010-1.025) Urine Protein 30 H (Neg-Trace) mg/dL Urine Glucose (UA) Normal (Normal) mg/dL - ABG Interpretation ABG results: PT/INR, D-dimer PT 13.6 Seconds (9.4-12.1) H 08/20/18 05:47 - Impressions Impressions Retroperitoneum Ultrasound 08/23/18 11:00 IMPRESSION: Unremarkable ultrasound of the kidneys. Question of mild fatty liver disease. D/ / Uzair Hope MD / Uzair Hope MD Interpreting Provider: Uzair Hope MD Foot MRI 08/23/18 11:19 IMPRESSION: Postoperative changes of the forefoot from 1st through 5th ray amputations. No abnormal bone marrow edema in the metatarsal heads at the site of amputations. Diffuse dorsal soft tissue swelling and possible ulceration versus open wound related to prior surgery at the level of the 1st ray. A 1.1 x 0.6 cm osteochondral defect of the posteromedial talar dome. D/ /23/2018 13:50:41 Seth Kinsey / guerita Interpreting Provider: Seth Kinsey - Attending Attestation Patient seen and examined independently, including review of objective data including labs. I agree with plan of care as documented above by the resident with the following comments: Pt developed gangrene of R 3rd toe following worsening of toe ulcer, and thus underwent operative amputation of remaining toes 1,3,5 as well as resection of 3rd metatarsal head by podiatry on 08/22. Intraop findings suggestive of OM, and micro prelim showing gram positive cocci. Will arrange for PICC and consult ID for abx recommendations. Does have worsening ISIDRO and hyperkalemia, and will consult Neph. <Shubham Shields - Last Filed: 08/23/18 16:37> (2) Foot ulcer, left Qualifiers: Non-pressure ulcer stage: unspecified non-pressure ulcer stage Qualified Code(s): L97.529 - Non-pressure chronic ulcer of other part of left foot with unspecified severity (5) Non-Hodgkin lymphoma Qualifiers: Non-Hodgkin lymphoma type: unspecified type Lymphoma site: inguinal Qualified Code(s): C85.95 - Non-Hodgkin lymphoma, unspecified, lymph nodes of inguinal region and lower limb <Prashanth Adams - Last Filed: 08/23/18 23:14> (2) Foot ulcer, left Qualifiers: Non-pressure ulcer stage: unspecified non-pressure ulcer stage Qualified Code(s): L97.529 - Non-pressure chronic ulcer of other part of left foot with unspecified severity (5) Non-Hodgkin lymphoma Qualifiers: Non-Hodgkin lymphoma type: unspecified type Lymphoma site: inguinal Qualified Code(s): C85.95 - Non-Hodgkin lymphoma, unspecified, lymph nodes of inguinal region and lower limb
[2018-08-23 08:38] LABS: Uric Acid 6.3 mg/dL (2.3-7.6)
[2018-08-23] MEDS: Insulin LISPRO 300 UNITS/3 ML VIAL SQ SCH ×3 (08:48→16:30)
[2018-08-23] MEDS: MetroNIDAZOLE 500 MG/100 ML 500 MG/100 ML BAG IVPB SCH (08:53)
[2018-08-23] MEDS: Gabapentin 400 MG CAPSULE PO SCH ×2 (08:54→20:50)
[2018-08-23] MEDS: Loratadine 10 MG TABLET PO SCH (08:55)
[2018-08-23] MEDS: Folic Acid 1 MG TABLET PO SCH (08:55)
[2018-08-23] MEDS: Metoprolol XL (24 HR) Succ 25 MG TAB.ER.24H PO SCH (08:55)
[2018-08-23 13:08] LABS: Bilirubin,Urine Negative (Negative); Blood,Urine Small (Negative); Clarity,Urine Cloudy (Clear); Glucose,Urine (UA) Normal (Normal); Ketones,Urine Negative (Negative); Leukocyte Esterase,Urine Trace (Negative); Nitrite,Urine Negative (Negative); PH,Urine 5.5 pH Units (5.0-8.0); Protein,Urine 30 mg/dL (Neg-Trace); Specific Gravity,Urine 1.018 (1.010-1.025); Urobilinogen,Urine Normal (Normal)
[2018-08-23 13:13] LABS: Bacteria,Urine None Seen per hpf (None-Few); Hyaline Casts,Urine Few per lpf (None-Few); Squamous Epithelial Cell,Urine Many per lpf (None-Few)
--- NOTE | 2018-08-23 14:52 | Podiatry Progress Note ---
Date of Encounter: 08/23/18 Time of Encounter: 14:49 - Assessment and Plan (1) Gangrene of toe of right foot Current Visit: Yes Status: Acute Assessment: S/P amputation toes 1,3,5 right foot with 3rd metatarsal head amputation with Dr. Flower on 08/23/18 WBC 12.1, expected postoperatively Wound cultures pending, surgical path pending, anaerobic cultures pending, blood cultures pending Sutures noted to #1, 3, and 5 metatarsals, well approximated, maceration noted to surrounding tissue No foul odor, minimal erythema, no streaking, 2/4 edema noted to RLE Plan: Cleansed with 0.9 NS, and 4x4 dry gauze, removed proximal suture to opening of 3rd metatarsal, opening measuring 1.3 x 1 x 0.4 cm Skin was prepped with Alkare and maceration was painted with betadine Wound vac placed with black granulofoam, draped with tegaderm in usual fashion with window-pane dressing, bridged to dorsal medial aspect of foot. Adaptic and 4x4 dry gauze placed to suture lines. Good seal was noted and suction was set at 125 mmHG Heel weight bearing only with assistance Recommend ID consult for treatment of OM, 3rd met head with spongy tissue, resected with bleeding noted, will most likely need IV ATB Recommend social service consult for home care vs ECF d/t placement of wound vac Wound care orders placed Will continue to follow (2) Chronic ulcer of great toe of left foot with fat layer exposed Current Visit: Yes Status: Acute Assessment: Her stage 2 ulceration Plan: Appears stable Continue dressing changes daily Wound care orders placed Subjective Interval history: Patient awake sitting on side of bed. Alert and oriented x 3. Patient denies any overnight events. Denies fevers, chills, nausea, vomiting, or diarrhea. Denies any calf pain, chest pain, or shortness of breath. Patient states he can not stay here all weekend. Denies any questions or concerns. Patient currently using smokeless tobacco at bedside. Educated on risks of using tobacco products. Verbalized understanding. At this time not ready to discuss stopping. Objective - Vital Signs Vital Signs: Vital Signs Temp Pulse Resp BP Pulse Ox 08/23/18 12:14 97.3 F L 63 16 114/70 100 08/23/18 07:50 97.6 F 71 16 133/75 100 08/23/18 07:37 14 99 08/23/18 04:24 97.3 F L 74 16 113/66 93 08/22/18 23:48 97.5 F L 69 14 108/64 98 08/22/18 20:39 18 98 08/22/18 19:30 97.6 F 80 16 120/66 98 08/22/18 18:00 84 18 132/66 96 08/22/18 17:29 97.6 F 77 14 113/73 97 08/22/18 17:15 97.5 F L 73 17 111/68 99 08/22/18 17:05 97.5 F L 74 18 113/74 100 08/22/18 16:55 97.5 F L 72 15 104/66 97 08/22/18 16:45 97.5 F L 76 17 107/64 100 08/22/18 16:35 73 15 91/61 94 08/22/18 16:25 74 14 94/60 95 08/22/18 16:15 98.1 F 75 16 85/55 92 Intake and Output 08/22/18 08/23/18 08/23/18 23:59 07:59 15:59 Intake Total 1920 / 2905 460 / 1040 580 / 1040 Output Total 1165 / 3265 250 / 650 400 / 650 Balance 755 / -360 210 / 390 180 / 390 Intake: IV Fluids 120 / 1105 100 / 200 100 / 200 Maxipime 2,000 MG In Water for 20 / inj. (sterile) 20 ML @ 300 mls/ hr IVP Q12HR [facility] Rx#:[id number] Flagyl Premix 500 MG/100 ML 500 100 / 300 100 / 200 100 / 200 mg In 100 ml @ 100 mls/hr IVPB Q8HR [facility] Rx#:[id number] Oral 1800 / 1800 360 / 840 480 / 840 Output: Urine 1150 / 3250 250 / 650 400 / 650 Estimated Blood Loss Other: Meal CLEARS Breakfast Percent of Meal Consumed 100% # Voids 1 Weight 140.3 kg Blood Glucose* 210 125 160 Patient Weight 08/23/18 23:59 Weight 140.3 kg - Exam Exam: Constitiutional: Alert and oriented x 3. Well nourished. No acute distress noted Vascular: 1/4 DP/PT bilaterally, CFT <3 sec to all digits LLE, warm to warm from tibia to toes bilaterally, no calf pain with squeeze, digit amputation to right foot x 5, 2/4 edema right foot Neurologic: Absent sensation to touch, normal plantar response, Dermatologic: left hallux medial her stage 2 ulceration, wound bed pink in color, minimal drainage noted, Sutures noted to #1, 3, and 5 metatarsals, well approximated, maceration noted to surrounding tissue, opening of 3rd metatarsal, opening measuring 1.3 x 1 x 0.4 cm Musculoskeletal: 3/5 muscle strength and normal tone bilaterally. - Radiology MRIs: report reviewed - Lab Result Diagrams: 08/23/18 03:11 08/23/18 03:11 Labs: Abnormal lab results WBC 12.1 K/mcL (4.3-11.1) H 08/23/18 03:11 RBC 3.08 M/mcL (4.19-5.50) L 08/23/18 03:11 Hgb 8.2 g/dL (12.9-16.9) L 08/23/18 03:11 Hct 27.0 % (37.5-50.1) L 08/23/18 03:11 MCH 26.6 pg (28.0-33.3) L 08/23/18 03:11 MCHC 30.4 g/dL (31.6-35.5) L 08/23/18 03:11 RDW 16.7 % (11.5-14.5) H 08/23/18 03:11 Plt Count 538 K/mcL (140-400) H 08/23/18 03:11 MPV 8.9 fL (9.4-12.4) L 08/22/18 10:28 10.7 K/mcL (1.6-8.9) H 08/23/18 03:11 PT 13.6 Seconds (9.4-12.1) H 08/20/18 05:47 Sodium 132 mEq/L (136-145) L 08/23/18 03:11 Potassium 5.5 mEq/L (3.5-5.1) H 08/23/18 03:11 Chloride 96 mEq/L (98-107) L 08/20/18 05:47 BUN 52 mg/dL (6-20) H 08/23/18 03:11 2.86 mg/dL (0.70-1.30) H 08/23/18 03:11 Est GFR ( Amer) 29 (> 60) L 08/23/18 03:11 Est GFR (Non-Af Amer) 24 (> 60) L 08/23/18 03:11 Glucose 159 mg/dL (70-105) H 08/23/18 03:11 POC Glucose 160 mg/dL (70-99) H 08/23/18 12:11 6.5 % (-5.6) H 08/18/18 19:07 279 (280-300) L 08/20/18 05:47 Calcium 8.1 mg/dL (8.6-10.3) L 08/23/18 03:11 Phosphorus 5.8 mg/dL (2.7-4.5) H 08/19/18 05:33 Green (Yellow) A 08/23/18 12:33 Cloudy (Clear) A 08/23/18 12:33 30 mg/dL (Neg-Trace) H 08/23/18 12:33 Small (Negative) H 08/23/18 12:33 Ur Leukocyte Esterase Trace (Negative) H 08/23/18 12:33 5-15 per hpf (0-3) H 08/23/18 12:33 Ur Squamous Epith Cells Many per lpf (None-Few) H 08/23/18 12:33 Protein/Creatinin Ratio 1.36 mg/mg (0.00-0.20) H 08/20/18 Unknown 61 mg/dL (1-14) H 08/20/18 Unknown Microbiology, Last 48 Hours 08/22/18 15:45 Surgical Biopsy Culture - Preliminary Surgery 08/22/18 15:45 Anaerobic Culture - Preliminary Surgery Culture is incubating. Consult Discharge Plan - Plan Referrals: Roslyn Cooper MD [Primary Care Provider] -
[2018-08-23] MEDS: metroNIDAZOLE 500 MG TABLET PO SCH (16:30)
--- NOTE | 2018-08-23 16:58 | Nephrology Consult Note ---
Date of Encounter: 08/23/18 Time of Encounter: 15:15 Assessment and Plan (1) ISIDRO (acute kidney injury) Current Visit: Yes Status: Acute Patient says that he has CKD III however we do not have a baseline to compare to. Patient has an ISIDRO with worsening renal function during hospital stay in the setting of sepsis and antibiotic treatment. Currently receiving mIVF. Patient does take Lasix at home. - Urine sodium, urine creatinine labs to calculate FeNa. - Avoid Nephrotoxins. - Renal dose antibiotics and medications. - Continue IVF. (2) Foot ulcer, left Current Visit: Yes Status: Acute Qualifiers: Non-pressure ulcer stage: unspecified non-pressure ulcer stage Qualified Code(s): L97.529 - Non-pressure chronic ulcer of other part of left foot with unspecified severity (3) Gangrene of toe of right foot Current Visit: Yes Status: Acute (4) Non-Hodgkin lymphoma Current Visit: Yes Status: Acute Qualifiers: Non-Hodgkin lymphoma type: unspecified type Lymphoma site: inguinal Qualified Code(s): C85.95 - Non-Hodgkin lymphoma, unspecified, lymph nodes of inguinal region and lower limb History of Present Illness - Reason for Consult Consult date: 08/23/18 Acute Kidney Injury - Chief Complaint Leg Swelling - History of Present Illness Patient is a 47 YO M with a PMH of diabetes, COPD on home oxygen, coronary artery disease, hypertension, hyperlipidemia, CKD 3 and non-Hodgkin's lymphoma who presented on 08/18/18 for RLE swelling. Began 4 day prior to presentation. Right third toe progressively became more swollen and eventually "busted" Reported enlarging inguinal mass for [address] scan of the abdomen and pelvis showed evidence of mild progression of lymphoma with slight increase in size. On arrival patient was hemodynamically stable, afebrile. Laboratory workup notable for a white count of 24,000. Hemoglobin 9.9. Creatinine 2.35. Diagnosed with gangrene of toe of R foot. Started on Van and zosyn. Patient underwent amputation of toes 1,3,5 right foot on 08/22/18. Ulcer of the L foot. Lympadenpathy of R inguinal region. Patient says that he has CDK III. No baseline creatinine or GFR was available. Past Med Surg Social Fam HX - Past Medical History Medical history: aortic aneurysm, atrial fibrillation, cancer, COPD, coronary artery disease, myocardial infarction, renal disease Additional medical history: sleep apnea, osteomylitis Psychiatric history: no psych history - Past Surgical History Additional surgical history: carpal tunnel surgery, EGD, colonsoscopy, two toe amputations - Social History Smoking Status: Never smoker Smokeless Tobacco Status: Yes Alcohol use: none Drug use: none Medications and Allergies Albuterol Sulfate [Ventolin Hfa] 2 puff PO Q46H PRN 08/19/18 [History] Clopidogrel [Plavix] 75 mg PO DAILY 08/19/18 [History] Ergocalciferol (VITAMIN D2) [Vitamin D2] 50,000 units PO QWEEK 08/19/18 [H istory] Ferrous Sulfate 325 mg PO DAILY 08/19/18 [History] Fluticasone Furoate [Arnuity Ellipta] 2 puff PO DAILY 08/19/18 [History] Folic Acid 1 mg PO DAILY 08/19/18 [History] Furosemide [Lasix] 20 mg PO DAILY 08/19/18 [History] Gabapentin [Neurontin] 800 mg PO TID 08/19/18 [History] Lansoprazole [Prevacid] 30 mg PO DAILY PRN 08/19/18 [History] Loratadine [Claritin] 10 mg PO DAILY 08/19/18 [History] Metoprolol Succinate 25 mg PO DAILY 08/19/18 [History] Simvastatin [Zocor] 40 mg PO HS 08/19/18 [History] Allergy/AdvReac Type Severity Reaction Status Date / Time levofloxacin [From Levaquin] Allergy Anaphylaxis Verified 08/19/18 12:50 sulfamethoxazole Allergy Anaphylaxis Verified 08/19/18 12:50 [From Bactrim] trimethoprim [From Bactrim] Allergy Anaphylaxis Verified 08/19/18 12:50 nicotine [From Nicoderm CQ] AdvReac Itching Verified 08/19/18 12:50 Varenicline [From Chantix] AdvReac Itching Verified 08/19/18 12:50 venlafaxine [From Effexor] AdvReac Fatigued Verified 08/19/18 12:50 Review of Systems Constitutional: fatigue Cardiovascular: edema, leg edema, leg ulcers, pedal edema, no chest pain, no dyspnea Gastrointestinal: abdominal pain (LLQ), no nausea, no vomiting Exam - Vital Signs Vital signs: Initial Vital Signs Temp Pulse Resp BP Pulse Ox 97.7 F 80 17 116/73 97 08/18/18 18:39 08/18/18 18:39 08/18/18 18:39 08/18/18 18:39 08/18/18 18:39 Vital Signs - Last 8 Hours Temp Pulse Resp BP Pulse Ox 08/23/18 15:24 97.8 F 65 16 115/71 98 08/23/18 12:14 97.3 F L 63 16 114/70 100 Intake and Output 08/23/18 08/23/18 08/23/18 07:59 15:59 23:59 Intake Total 460 / 1160 700 / 1160 Output Total 250 / 950 700 / 950 Balance 210 / 210 0 / 210 Intake: IV Fluids 100 / 200 100 / 200 Flagyl Premix 500 MG/100 ML 500 100 / 200 100 / 200 mg In 100 ml @ 100 mls/hr IVPB Q8HR [facility] Rx#:[id number] Oral 360 / 960 600 / 960 Output: Urine 250 / 950 700 / 950 Other: Meal Breakfast Percent of Meal Consumed 100% # Voids 1 Weight 140.3 kg Blood Glucose* 125 160 149 Patient Weight 08/23/18 23:59 Weight 140.3 kg - General Appearance General appearance: appears started age, obese EENT: mucous membranes moist Neck: no JVD Respiratory: clear Cardiology: no murmurs, no rub, no gallops, edema, regular rate, regular rhythm, normal S1, normal S2 Additional Comments: +1 b/l pitting pedal edema. Gastrointestinal: normoactive bowel sounds, tenderness (LLQ. Light-palpation. Chronic.), no guarding, no organomegaly, no masses, obese Integumentary: warm and dry Neurologic: no focal deficit, alert and oriented x3, strength 5/5 Musculoskeletal: no cyanosis, no clubbing Psychiatric: mood/affect appropriate, cooperative Results - Lab Results 08/23/18 03:11 08/23/18 03:11 Most recent lab results 08/23/18 03:11 Calcium 8.1 L Consult Discharge Plan - Plan Referrals: Roslyn Cooper MD [Primary Care Provider] -
[2018-08-24] MEDS: Cefepime HCl 2,000 MG in Water for inj. (sterile) 20 ML 20 ML IVP SCH ×2 (05:37→20:03)
[2018-08-24 07:35] LABS: Basophils # 0.1 K/mcL (0.0-0.2); Basophils % 0.6 %; Eosinophils # 0.2 K/mcL (0.0-0.6); Eosinophils % 1.5 %; Hematocrit 28.6 % (37.5-50.1); Hemoglobin 8.6 g/dL (12.9-16.9); Immature Granulocytes % 3.1 % (0-4); Lymphocytes # 2.5 K/mcL (0.6-4.6); Lymphocytes % 17.2 %; Mean Corpuscular HGB Conc 30.1 g/dL (31.6-35.5); Mean Corpuscular Hemoglobin 26.1 pg (28.0-33.3); Mean Corpuscular Volume 86.9 fL (83.0-100.0); Mean Platelet Volume 9.3 fL (9.4-12.4); Monocytes # 1.2 K/mcL (0.0-1.3); Monocytes % 8.1 %; Neutrophils # 10.1 K/mcL (1.6-8.9); Platelet Count 593 K/mcL (140-400); Red Blood Count 3.29 M/mcL (4.19-5.50); Red Cell Distribution Width 17.2 % (11.5-14.5); Segmented Neutrophils % 69.5 %
[2018-08-24 07:55] LABS: VBG HCO3 26 mEq/L (21-27); VBG PCO2 65 mmHg (41-51); VBG PH 7.21 pH Units (7.32-7.42); VBG PO2 84 mmHg (25-50)
[2018-08-24 07:57] LABS: Albumin/Globulin Ratio 0.7 (1.1-2.2); Bilirubin,Total 0.3 mg/dL (0.3-1.0); Calcium 8.3 mg/dL (8.6-10.3); Globulin 4.4 g/dL (2.4-3.5); Potassium 4.9 mEq/L (3.5-5.1); Total Protein 7.4 g/dL (6.4-8.9)
--- NOTE | 2018-08-24 09:59 | Electrocardiograph Report ---
[address] [address] Test Date: 2018-08-23 Pat Name: Dmitri Sellers Department: 115 Room: 3A48 Gender: M Graduate [employer]: : [id number] Requested By: Shubham Shields Order Number: [id number] Reading MD: Carlos Lombardi Measurements Intervals [place] Rate: 65 P: 40 CO: 162 QRS: 40 QRSD: 106 T: 20 QT: 448 QTc: 460 Interpretive Statements SINUS RHYTHM LOW QRS VOLTAGE IN PRECORDIAL LEADS Electronically Signed On 08-24-2018 9:57:44 EDT by Carlos Lombardi
[2018-08-24] MEDS: Insulin LISPRO 300 UNITS/3 ML VIAL SQ SCH ×3 (10:06→17:56)
[2018-08-24 10:17] LABS: ABG Base Excess 0 mEq/L (-2 to 3); ABG HCO3 27 mEq/L (21-27); ABG Oxygen Saturation 82 % (95-98); ABG PCO2 56 mmHg (35-45); ABG PH 7.29 pH Units (7.32-7.45); ABG PO2 53 mmHg (85-104); ABG TCO2 29 mEq/L (20-26)
[2018-08-24] MEDS: MOMETASONE FUROATE 100 mcg Inhaler IH SCH ×2 (10:17→20:16)
--- NOTE | 2018-08-24 12:02 | Nephrology Progress Note ---
Date of Encounter: 08/24/18 Time of Encounter: 10:30 - Assessment and Plan (1) ISIDRO (acute kidney injury) Current Visit: Yes Status: Acute Patient says that he has CKD III however we do not have a baseline to compare to. Patient has an ISIDRO with worsening renal function during hospital stay in the setting of sepsis and antibiotic treatment. FeNa 1.6% indicating pre-renal and intrinsic pathology. Patient does take Lasix at home. Received vancomycin treatment in hospital, but that has been discontinued. Good UOP of 0.9 cc/kg/hr. Creatinine same as yesterday at 2.80 (yesterday 2.86). - Continue to hold vancomycin given poor renal status. - Renal function has not shown improvement despite being on IVF. Possible setting of ATN. Given risk of fluid overload, would hold IVF for now. - Avoid nephrotoxins. - Renal dose medications. (2) Altered mental state Current Visit: Yes Status: Acute Patient appeared to altered at times, however he is oriented. Patient was not h ypoglycemic at bedside acuchecks. CT of head showed no acute intracranial abnormality with no evidece of bleed. He appeared to display increase work of breathing. He has been non-compliant at times with his oxygen according to the nursing staff. ABG shows acidic pH of 7.29 with increased CO2 of 56 and normal HCO3 of 27. Altered state likely due to a respiratory narcosis. - Management per primary team. Qualifiers: Qualified Code(s): R40.0 - Somnolence (3) Foot ulcer, left Current Visit: Yes Status: Acute Qualifiers: Non-pressure ulcer stage: unspecified non-pressure ulcer stage Qualified Code(s): L97.529 - Non-pressure chronic ulcer of other part of left foot with unspecified severity (4) Gangrene of toe of right foot Current Visit: Yes Status: Acute (5) Non-Hodgkin lymphoma Current Visit: Yes Status: Acute Qualifiers: Non-Hodgkin lymphoma type: unspecified type Lymphoma site: inguinal Qualified Code(s): C85.95 - Non-Hodgkin lymphoma, unspecified, lymph nodes of inguinal region and lower limb Subjective Interval history: When seen this morning, patient appeared to be slightly altered. He was still able to respond to questions, however he had a very difficult time doing so and would frequently need to have the question repeated. He did appear somewhat s omnolent at times. He had his oxygen off at the time and from what nursing staff has told me, he has issues with keeping his NC attached. Patient says that he is more out of breath when compared to yesterday. He denied any chest pain or fever. Denied any abdominal pain. Objective - Vital Signs Vital signs: Vital Signs Temp Pulse Resp BP Pulse Ox 08/24/18 10:33 98.6 F 90 17 99/63 93 08/24/18 10:17 18 92 08/24/18 04:55 98.6 F 84 15 127/59 92 08/23/18 19:29 97.4 F L 72 15 113/67 98 08/23/18 15:24 97.8 F 65 16 115/71 98 08/23/18 12:14 97.3 F L 63 16 114/70 100 Intake and Output 08/23/18 08/24/18 08/24/18 23:59 07:59 15:59 Intake Total 280 / 1460 0 / 240 240 / 240 Output Total 2004 / 2955 0 / 0 Balance -1725 / -1495 0 / 240 240 / 240 Intake: IV Fluids 20 / 240 Maxipime 2,000 MG In Water for 20 / 40 inj. (sterile) 20 ML @ 300 mls/ hr IVP Q12HR [facility] Rx#:[id number] Oral 260 / 1220 0 / 240 240 / 240 Output: Urine 2004 / 2955 0 / 0 Wound Drainage 0 / 0 Right Middle Toe 0 / 0 Other: Meal Breakfast Percent of Meal Consumed 100% 100% # Voids 1 Weight 140.3 kg Blood Glucose* 97 114 105 Patient Weight 08/24/18 23:59 Weight 140.3 kg - General Appearance General appearance: Present: appears started age, obese Exam: Altered, but oriented. Somnolent at times. Appeared to be SOB at times as well. Neck: Present: no JVD Respiratory: Present: course breath sounds, rhonchi Cardiology: Present: no murmurs, no rub, no gallops, edema, regular rate, regular rhythm, normal S1, normal S2 (+1 b/l pitting pedal edema ) Gastrointestinal: Present: normoactive bowel sounds, no tenderness, no guarding, no organomegaly, no masses Integumentary: Present: warm and dry Neurologic: Present: no focal deficit Additional Comments: Intermittent somnolence. Musculoskeletal: Present: no cyanosis, no clubbing Additional Comments: Intermittent somnolence. Altered, but oriented. - Lab 08/24/18 07:14 08/24/18 07:14 Most recent lab results 08/24/18 08/24/18 07:14 10:13 ABG pH 7.29 L ABG pCO2 56 H ABG pO2 53 L ABG HCO3 27 ABG O2 Saturation 82 L Calcium 8.3 L Consult Discharge Plan - Plan Referrals: Roslyn Cooper MD [Primary Care Provider] -
[2018-08-24] MEDS: Loratadine 10 MG TABLET PO SCH (12:26)
[2018-08-24] MEDS: Folic Acid 1 MG TABLET PO SCH (12:26)
[2018-08-24] MEDS: Metoprolol XL (24 HR) Succ 25 MG TAB.ER.24H PO SCH (12:27)
[2018-08-24] MEDS: metroNIDAZOLE 500 MG TABLET PO SCH ×3 (12:27→17:57)
[2018-08-24] MEDS: Gabapentin 400 MG CAPSULE PO SCH (12:27)
--- NOTE | 2018-08-24 12:32 | Podiatry Progress Note ---
Date of Encounter: 08/24/18 Time of Encounter: 12:15 - Assessment and Plan (1) Gangrene of toe of right foot Current Visit: Yes Status: Acute Assessment: S/P amputation toes 1,3,5 right foot with 3rd metatarsal head amputation with Dr. Flower on 08/23/18 WBC 14.5, elevated from yesterday Wound cultures pending, surgical path pending, anaerobic cultures pending, blood cultures pending Outside reports received today showed positive MRSA, morganella, and group b strep- ID consulted Sutures noted to #1, 3, and 5 metatarsals, well approximated, maceration noted to surrounding tissue No foul odor, minimal erythema, no streaking, 2/4 edema noted to RLE Plan: Spoke with Mold [employer]acker regarding mental status change. Recommendations made. Cleansed with 0.9 NS, and 4x4 dry gauze, removed proximal suture to opening of 3rd metatarsal, opening measuring 1 x 1 x 0.4 cm Skin was prepped with Alkare and maceration was painted with betadine Wound vac placed with black granulofoam, draped with tegaderm in usual fashion with window-pane dressing, bridged to dorsal medial aspect of foot. Adaptic and 4x4 dry gauze placed to suture lines. Good seal was noted and suction was set at 125 mmHG Heel weight bearing only with assistance Recommend ID consult for treatment of OM, 3rd met head with spongy tissue, resected with bleeding noted, will most likely need IV ATB Recommend social service consult for home care vs ECF d/t placement of wound vac Wound care orders placed Will continue to follow (2) Chronic ulcer of great toe of left foot with fat layer exposed Current Visit: Yes Status: Acute Assessment: Her stage 2 ulceration Maceration noted to surrounding tissue Plan: Macerated tissue painted with alkare Wound bed pink in color, cleansed with 0.9 NS, covered with calcium alginate, 4x4 dry gauze, and medipore Continue dressing changes daily Wound care orders placed Subjective Interval history: Patient awake sitting on side of bed. Confused. Patient with tremors noted. Patient is naked in bed with oxygen and monitors ripped off. Unable to fully cooperate in examination. Objective - Vital Signs Vital Signs: Vital Signs Temp Pulse Resp BP Pulse Ox 08/24/18 10:33 98.6 F 90 17 99/63 93 08/24/18 10:17 18 92 08/24/18 04:55 98.6 F 84 15 127/59 92 08/23/18 19:29 97.4 F L 72 15 113/67 98 08/23/18 15:24 97.8 F 65 16 115/71 98 Intake and Output 08/23/18 08/24/18 08/24/18 23:59 07:59 15:59 Intake Total 280 / 1460 0 / 240 240 / 240 Output Total 2004 0 / 0 Balance -1725 / -1495 0 / 240 240 / 240 Intake: IV Fluids 20 / 240 Maxipime 2,000 MG In Water for inj. (sterile) 20 ML @ 300 mls/ hr IVP Q12HR [facility] Rx#:[id number] Oral 260 / 1220 0 / 240 240 / 240 Output: Urine 2004 0 / 0 Wound Drainage 0 / 0 Right Middle Toe 0 / 0 Other: Meal Breakfast Percent of Meal Consumed 100% 100% # Voids 1 Weight 140.3 kg Blood Glucose* 97 114 105 Patient Weight 08/24/18 23:59 Weight 140.3 kg - Exam Exam: Constitiutional: Confused. Well nourished. Nurse notified of changes, states primary care physician is aware, limited exam Vascular: 1/4 DP/PT bilaterally, CFT <3 sec to all digits LLE, warm to warm from tibia to toes bilaterally, digit amputation to right foot x 5, 2/4 edema right foot Neurologic: Absent sensation to touch, normal plantar response, Dermatologic: left hallux medial her stage 2 ulceration, wound bed pink in color, minimal drainage noted, macerated tissue noted to periwound, Sutures noted to #1, 3, and 5 metatarsals, well approximated, maceration noted to surrounding tissue, opening of 3rd metatarsal, opening measuring 1 x 1 x 0.4 cm Musculoskeletal: 3/5 muscle strength and normal tone bilaterally. - Lab Result Diagrams: 08/24/18 07:14 08/24/18 07:14 Labs: Abnormal lab results WBC 14.5 K/mcL (4.3-11.1) H 08/24/18 07:14 RBC 3.29 M/mcL (4.19-5.50) L 08/24/18 07:14 Hgb 8.6 g/dL (12.9-16.9) L 08/24/18 07:14 Hct 28.6 % (37.5-50.1) L 08/24/18 07:14 MCH 26.1 pg (28.0-33.3) L 08/24/18 07:14 MCHC 30.1 g/dL (31.6-35.5) L 08/24/18 07:14 RDW 17.2 % (11.5-14.5) H 08/24/18 07:14 Plt Count 593 K/mcL (140-400) H 08/24/18 07:14 MPV 9.3 fL (9.4-12.4) L 08/24/18 07:14 10.1 K/mcL (1.6-8.9) H 08/24/18 07:14 PT 13.6 Seconds (9.4-12.1) H 08/20/18 05:47 ABG pH 7.29 pH Units (7.32-7.45) L 08/24/18 10:13 ABG pCO2 56 mmHg (35-45) H 08/24/18 10:13 ABG pO2 53 mmHg (85-104) L 08/24/18 10:13 ABG Total CO2 29 mEq/L (20-26) H 08/24/18 10:13 ABG O2 Saturation 82 % (95-98) L 08/24/18 10:13 VBG pH 7.21 pH Units (7.32-7.42) L 08/24/18 07:52 VBG pCO2 65 mmHg (41-51) H 08/24/18 07:52 VBG pO2 84 mmHg (25-50) H 08/24/18 07:52 Sodium 135 mEq/L (136-145) L 08/24/18 07:14 Potassium 5.5 mEq/L (3.5-5.1) H 08/23/18 03:11 Chloride 96 mEq/L (98-107) L 08/20/18 05:47 BUN 51 mg/dL (6-20) H 08/24/18 07:14 2.80 mg/dL (0.70-1.30) H 08/24/18 07:14 Est GFR ( Amer) 29 (> 60) L 08/24/18 07:14 Est GFR (Non-Af Amer) 24 (> 60) L 08/24/18 07:14 Glucose 159 mg/dL (70-105) H 08/23/18 03:11 POC Glucose 105 mg/dL (70-99) H 08/24/18 10:48 6.5 % (-5.6) H 08/18/18 19:07 279 (280-300) L 08/20/18 05:47 Calcium 8.3 mg/dL (8.6-10.3) L 08/24/18 07:14 Phosphorus 5.8 mg/dL (2.7-4.5) H 08/19/18 05:33 332 Units/L (34-104) H 08/24/18 07:14 3.0 g/dL (3.5-5.7) L 08/24/18 07:14 4.4 g/dL (2.4-3.5) H 08/24/18 07:14 0.7 (1.1-2.2) L 08/24/18 07:14 Green (Yellow) A 08/23/18 12:33 Cloudy (Clear) A 08/23/18 12:33 30 mg/dL (Neg-Trace) H 08/23/18 12:33 Small (Negative) H 08/23/18 12:33 Ur Leukocyte Esterase Trace (Negative) H 08/23/18 12:33 5-15 per hpf (0-3) H 08/23/18 12:33 Ur Squamous Epith Cells Many per lpf (None-Few) H 08/23/18 12:33 Protein/Creatinin Ratio 1.36 mg/mg (0.00-0.20) H 08/20/18 Unknown 61 mg/dL (1-14) H 08/20/18 Unknown Microbiology, Last 48 Hours 08/22/18 15:45 Surgical Biopsy Culture - Preliminary Surgery Gram Negative Luca 08/18/18 19:07 Blood Culture - Final Peripheral Venipuncture No growth. Final report. 08/18/18 19:07 Blood Culture - Final Peripheral Venipuncture No growth. Final report. 08/22/18 15:45 Anaerobic Culture - Preliminary Surgery Culture is incubating. Consult Discharge Plan - Plan Referrals: Roslyn Cooper MD [Primary Care Provider] -
--- NOTE | 2018-08-24 12:46 | Internal Med Progress Note ---
Hospitalist Progress Note - Encounter Date of Encounter: 08/24/18 Time of Encounter: 07:10 - Subjective Interval History: Pt this AM is much more confused than yesterday, with some mumbled speech and perseveration on various questions, but able to tell me his name and answer some questions including simple addition. He denies any specific complaints including no CP, SOB, abd pain, N/V/D. He is obviously confused but states "I'm OK, it's nothing". - Exam Vitals: Temp Pulse Resp BP Pulse Ox 98.6 F 90 17 99/63 93 08/24/18 10:33 08/24/18 10:33 08/24/18 10:33 08/24/18 10:33 08/24/18 10:33 Exam: General: poor eye contact, disheveled and glassy eyed, with general shakiness/twitching Thoracic: Normal breath sounds b/l, no wheezing or crackles Cardio: Normal S1 and S2, regular rate and rhythm Abdomen: Soft, nontender Extremities: Warm, well perfused. Does have edema b/l legs Skin: wound vac in place R forefoot at site of toe amputations Neuro: Somnolent, oriented to person and place. Speech occasionally fluent. Does have mild asterixis including postural tremor as well as spontaneous twitching of body and upper extremities. Downgoing babinsky. Pupils equal and reactive. Other cranial nerves normal. Irrigation Laborer strength symmetric but has difficulty with re lease. Initially seemed to neglect R side but on re-eval this was not present. - Summary of Assessment and Plan Summary of Assessment and Plan: Dmitri Sellers is a 47 M w hx DM2, COPD and chronic hypoxic resp failure on 2L, CAD, HTN, HLD, CKD3a, and non-Hodgkin's lymphoma, who p/w pain and discoloration of R 3rd toe, found to have gangrene and osteomyelitis. Wound cultures from OSH growing MRSA. Pt taken to OR by podiatry on 08/22 for removal of remaining toes and metatarsal head resection concerning for osteomyelitis, cultures pending. Pt remains on broad spectrum abx cefepime and flagyl, and will add back vancomycin due to new info of MRSA in OSH wound cultures. Follow up intra-op cultures. ID has been consulted for homegoing abx regimen and pt will likely need PICC and IV abx. On presentation, patient with Cr 2.23 and has increased to 2.8 suggestive of ISIDRO on CKD3a, Neph following at this time. Overnight, pt became confused and somnolent, and was found hypoxic in 70s% with normal blood glucose. Stat CT head unremarkable. No focal neuro deficits. Does have postural tremor and mild asterixis, ammonia 50 and without hx liver disease other than steatosis. Did take several doses of oxycodone yesterday and has been taking moderate doses of gabapentin despite CKD. Lactate and pressures wnl, but ABG pH is 7.29. With confusion, pt not keeping O2 on and continues intermittent desats. Will move to higher level of care for closer monitoring. Concern for medication side effect, hypoxia, hepatic encephalopathy. Unclear cause of acidosis but slightly improved on recheck. Internal Medicine: Result - Labs CBC & Chem 7: 08/24/18 07:14 08/24/18 07:14 Labs: Short CBC 08/24/18 Range/Units 07:14 WBC 14.5 H (4.3-11.1) K/mcL Hgb 8.6 L (12.9-16.9) g/dL Hct 28.6 L (37.5-50.1) % Plt Count 593 H (140-400) K/mcL Neutrophils # 10.1 H (1.6-8.9) K/mcL BMP 08/24/18 07:14 Sodium 135 L Potassium 4.9 Chloride 102 Carbon Dioxide 27 BUN 51 H Creatinine 2.80 H Glucose 91 Calcium 8.3 L Liver Function 08/24/18 Range/Units 07:14 Total Bilirubin 0.3 (0.3-1.0) mg/dL AST 20 (13-39) Units/L ALT 17 (7-52) Units/L Alkaline Phosphatase 332 H (34-104) Units/L Albumin 3.0 L (3.5-5.7) g/dL Urine 08/23/18 Range/Units 12:33 Urine Color Green A (Yellow) Urine Clarity Cloudy A (Clear) Urine pH 5.5 (5.0-8.0) pH Units Ur Specific [place] 1.018 (1.010-1.025) Urine Protein 30 H (Neg-Trace) mg/dL Urine Glucose (UA) Normal (Normal) mg/dL - ABG Interpretation ABG results: ABG ABG pH 7.29 pH Units (7.32-7.45) L 08/24/18 10:13 ABG pCO2 56 mmHg (35-45) H 08/24/18 10:13 ABG pO2 53 mmHg (85-104) L 08/24/18 10:13 ABG O2 Saturation 82 % (95-98) L 08/24/18 10:13 PT/INR, D-dimer PT 13.6 Seconds (9.4-12.1) H 08/20/18 05:47 - Impressions Impressions Foot MRI 08/23/18 11:19 IMPRESSION: Postoperative changes of the forefoot from 1st through 5th ray amputations. No abnormal bone marrow edema in the metatarsal heads at the site of amputations. Diffuse dorsal soft tissue swelling and possible ulceration versus open wound related to prior surgery at the level of the 1st ray. A 1.1 x 0.6 cm osteochondral defect of the posteromedial talar dome. D/ : / 08/23/2018 13:50:41 Seth Kinsey / guerita Interpreting Provider: Seth Kinsey Head CT 08/24/18 07:24 IMPRESSION: Limited examination secondary to extensive patient motion. However, no acute intracranial abnormality is demonstrated. No evidence of a bleed. RECOMMENDATIONS: If clinical symptoms persist, a repeat examination is recommended when the patient is more stable. D/ / Kwame Zuniga MD / Kwame Zuniga MD Interpreting Provider: Kwame Zuniga MD Consult Discharge Plan - Plan Referrals: Roslyn Cooper MD [Primary Care Provider] -
[2018-08-24] MEDS ORDERED: Vancomycin 1 EACH in 0.9 % Sodium Chloride 250 ML IVPB SCH (13:00)
--- NOTE | 2018-08-24 13:13 | Infectious Disease Consult ---
Infectious Disease-Consult - Encounter Date/Time Date of Encounter: 08/24/18 Time of Encounter: 13:12 - Data of Consult Patient: new to practice Reason for consult: Right foot infection Consult date: 08/24/18 Requesting Physician: Prashanth Adams Primary Care Provider: Roslyn Cooper MD - HPI HPI: Mr. Sellers is a 47 year old male with a past medical history of COPD, DM, HTN, HLD, CKD3, non-Hodgkin's lymphoma, A-fib, CARLOS A, and OM with remote history of right foot toe #2 and #4 amputation. The patient was admitted to the hospital 08/18/18 for right foot cellulitis. We are consulted 08/24/18 for further workup and treatment recommendations for right foot OM. We, the patient is a 47-year-old male with a past medical history as stated above. The patient presented to falls or emergency department with complaints 4 day history of right lower extremity pain and swelling. He had also noticed the increase in the size of a right groin mass about 5 days prior to admission. He had undergone a CT of the abdomen and pelvis outpatient that showed progression of his lymphoma. On Monday, he noticed that his right foot third toe was swollen and developed a blister that started draining. Unfortunately, I have very limited records from [facility] and the only thing I do have is a wound culture report that is positive for Morganella Morgagni, MRSA, MSSA, and group B strep. He was transferred here for further evaluation and treatment. Upon arrival here, he underwent a venous duplex study that was negative for DVT or SVT. Blood cultures were obtained 2 sets are no growth. On 08/19/18, he was evaluated by podiatry who recommended some vascular studies. TCP O2 monitoring showed ischemia to the bilateral extremities. SANDY studies were normal bilaterally. He was taken to the operating room 08/22/18 and underwent amputation of toes one, 3, and 5 of the right foot. Pathology is pending. Cu ltures are pending, but the Gram stain shows gram-negative rods. Anaerobic cultures are no growth. Since admission, he has had worsening renal function. He underwent a retroperitoneal ultrasound that was negative. Was evaluated by nephrology. On 08/23/18 he underwent an MRI of the right foot due to persistent leukocytosis that was nonrevealing for acute infectious etiology. Today, the patient is confused and unable to provide me with any information. Review of systems is very limited as well. He does CT of the head that was limited due to motion artifact, but was essentially negative. ABGs revealed that the patient has respiratory acidosis with a pH of 7.29 and a CO2 of 56. His white blood cell count remains elevated at 14.5. Lactic acid was normal. Currently, the patient is on vancomycin, cefepime, and Flagyl. We have been asked to evaluate and make further recommendations. During my exam today, the patient is confused. He tells me that he is not having any pain, but does not answer any other review of systems questions. He continuously repeats the same phrase over and over again to matter what question I ask him. He does follow most commands. There is no family at the bedside to provide me with any history. - ROS Review of Systems: Review of systems Limited due to the patient's mental status. - Results CBC & Chem 7: 08/27/18 07:56 08/27/18 07:56 - Exam Vitals: Temp Pulse Resp BP Pulse Ox 98.6 F 90 17 99/63 93 08/24/18 10:33 08/24/18 10:33 08/24/18 10:33 08/24/18 10:33 08/24/18 10:33 Exam: Head: Atraumatic, normal inspection, normocephalic. Eye: EOMI, PERRLA, no scleral icterus noted. ENT: Mucous membranes moist. No odontogenic infection noted. Neck: Normal inspection, no meningismus. Respiratory: Clear to auscultation. No rales, respiratory distress, rhonchi, or wheezes noted. Cardiovascular: Regular rate and rhythm, S1 and S2 audible. No murmurs, rubs, or gallops. GI: Soft, obese, normal bowel sounds. Non-tender. Extremities: No joint swelling, pedal edema, or tenderness noted. Full scar noted to the bilateral upper and bilateral lower extremities of unclear kajal ology. Right foot postop dressing with wound VAC intact. Small amount of serous sanguinous drainage noted in the canister. No erythema extending above the dressing. Left great toe dressing saturated with urine. Grade 2 ulceration noted to the entire medial aspect of the left great toe. Wound bed is pink and moist without surrounding erythema or fluctuance. Back: Normal inspection. No vertebral tenderness noted. Neurological: Alert, oriented to person and knows he is in a hospital, but thin ks he is at [facility]. Follows commands, but continuously attempts to remove his gown and O2. Skin: Dry, intact, warm. Normal color. No rashes. Albuterol Sulfate [Ventolin Hfa] 2 puff PO Q46H PRN 08/19/18 [History] Clopidogrel [Plavix] 75 mg PO DAILY 08/19/18 [History] Ergocalciferol (VITAMIN D2) [Vitamin D2] 50,000 units PO QWEEK 08/19/18 [History] Ferrous Sulfate 325 mg PO DAILY 08/19/18 [History] Fluticasone Furoate [Arnuity Ellipta] 2 puff PO DAILY 08/19/18 [History] Folic Acid 1 mg PO DAILY 08/19/18 [History] Furosemide [Lasix] 20 mg PO DAILY 08/19/18 [History] Gabapentin [Neurontin] 800 mg PO TID 08/19/18 [History] Lansoprazole [Prevacid] 30 mg PO DAILY PRN 08/19/18 [History] Loratadine [Claritin] 10 mg PO DAILY 08/19/18 [History] Metoprolol Succinate 25 mg PO DAILY 08/19/18 [History] Simvastatin [Zocor] 40 mg PO HS 08/19/18 [History] Allergy/AdvReac Type Severity Reaction Status Date / Time levofloxacin [From Levaquin] Allergy Anaphylaxis Verified 08/19/18 12:50 sulfamethoxazole Allergy Anaphylaxis Verified 08/19/18 12:50 [From Bactrim] trimethoprim [From Bactrim] Allergy Anaphylaxis Verified 08/19/18 12:50 nicotine [From Nicoderm CQ] AdvReac Itching Verified 08/19/18 12:50 Varenicline [From Chantix] AdvReac Itching Verified 08/19/18 12:50 venlafaxine [From Effexor] AdvReac Fatigued Verified 08/19/18 12:50 - Assessment and Plan (1) Leukocytosis Current Visit: Yes Status: Acute Appears chronic, labs dating back to 2014 reveal leukocytosis. Likely secondary to lymphoma, but difficult to discern given the patient's recent infection and new-onset AMS. No other SIRS criteria. Blood cultures drawn 5/11/19 are NGTD x 2 sets. Qualifiers: Leukocytosis type: unspecified Qualified Code(s): D72.829 - Elevated white blood cell count, unspecified SNOMED Code(s): 572754182, 831318644 (2) Gangrene of toe of right foot Current Visit: Yes Status: Acute Location: Right foot toe #3. Likely secondary to infection and ischemia. Causative organism: MRSA, MSSA, M. morgannii, and GBS based on wound culture from [facility]. It is unclear it the patient had any trauma or open lesion prior to onset of infection. No pre-op imaging was completed here and I do have minimal records from [facility]. ESR and CRP were not checked. Podiatry consulted. Status post amputation toes #1, #3, #5 on the right foot (toes #2 and #4 previously amputated). Intra-op bone cultures of the 3rd toe positive for GNR, final ID and sensitivities pending. ABIs WNL bilaterally. TCPO2 monitoring showed ischemia bilaterally. Post-op MRI negative for acute abnormality. Currently on Vanc, Cefepime, and Flagyl. SNOMED Code(s): 65161256464090147 (3) Foot ulcer, left Current Visit: Yes Status: Acute Location: Left great toe. Etiology: Unclear. Clinically does not appear infected. Podiatry consulted and following. Qualifiers: Non-pressure ulcer stage: unspecified non-pressure ulcer stage Qualified Code(s): L97.529 - Non-pressure chronic ulcer of other part of left foot with unspecified severity SNOMED Code(s): 90691214 (4) Acute kidney injury superimposed on CKD Current Visit: Yes Status: Acute Unclear the patient's baseline renal function. Nephrology consulted and following. SNOMED Code(s): 69722157 (5) Altered mental state Current Visit: Yes Status: Acute Etiology: Unclear. Infection vs. metabolic vs. other. Leukocytosis, but no other SIRS criteria and this appears chronic, likely from lymphoma. According to nursing, patient was noncompliant with his O2 all night and sats were in the 70's. ABG shows respiratory acidosis (pH 7.29, CO2 56, O2 53), which could be contributing. CT head negative. Ammonia level normal. It is unclear if the patient drinks ETOH. --> Withdrawals?? No meningeal signs. Urinalysis not impressive. Qualifiers: Altered mental status type: disorientation Qualified Code(s): R41.0 - Disorientation, unspecified SNOMED Code(s): 497728858 (6) Right groin mass Current Visit: Yes Status: Acute CT of the abdomen pelvis completed 08/17 showed progression of the patient's lymphoma. Patient non-compliant with exam and unable to palpate the mass. SNOMED Code(s): 693285239 (7) Morbid obesity with BMI of 40.0-44.9, adult Current Visit: Yes Status: Chronic SNOMED Code(s): 790271705, 26403485125894 (8) Non-Hodgkin lymphoma Current Visit: Yes Status: Acute Course of treatment unknown at this point. It does not appear that the patient follows with [facility] and we have no records and the patient is unable to tell me anything and there is no family at the bedside. Qualifiers: Non-Hodgkin lymphoma type: unspecified type Lymphoma site: inguinal Qualified Code(s): C85.95 - Non-Hodgkin lymphoma, unspecified, lymph nodes of inguinal region and lower limb SNOMED Code(s): 249252303 - Recommendations Recommendations: Await blood cultures to finalize. Await intra-op cultures to finalize. Wound care per the Podiatry team. Consider transfer to higher level of care for closer monitoring given the patient's AMS. Consider BIPAP to see if this helps with the patient's AMS. Continue Vancomycin IV. Pharmacy to dose. Goal trough ~15. Random Vanc 08/23/18 15. Continue cefepime 2 grams IV Q12H. Duration of treatment depends on the clinical picture. Monitor renal function and for drug toxicity and dose-adjust antibiotics. Will need to monitor Vanc levels closely given the patient's history of CKD. Past Med Surg Social Fam HX - Past Medical History Medical history: aortic aneurysm, atrial fibrillation, cancer, COPD, coronary artery disease, myocardial infarction, renal disease Additional medical history: sleep apnea, osteomylitis Psychiatric history: no psych history - Past Surgical History Additional surgical history: carpal tunnel surgery, EGD, colonsoscopy, two toe amputations - Social History Smoking Status: Never smoker Smokeless Tobacco Status: Yes Alcohol use: none Drug use: none Consult Discharge Plan - Plan Referrals: Roslyn Cooper MD [Primary Care Provider] - - Attending Attestation I have personally performed a face to face evaluation on this patient. I have reviewed and agree with the care plan. History and Exam by me shows: This is an addendum to original report dictated by Mell Romero CNP. Please refer to Mell's note for full detail. Patient with extensive past medical history mentioned below including COPD, diabetes mellitus, hypertension, hyperlipidemia, chronic kidney disease and non-Hodgkin's lymphoma also had a history of right foot toe #2 and number for amputation came in with right foot cellulitis and we are consulted for right foot osteomyelitis. Assessment and plan: 1.Gangrene of toe of right foot causative organism MRSA, MSSA, Morganella Morgagni and group B streptococcus status post amputation toe #1, 3, 5 2.Leukocytosis could be secondary to lymphoma versus inflammatory versus infectious 3.Acute kidney injury 4.Altered mental status 5.Right groin mass Recommendations: Await blood cultures to finalize. Await intra-op cultures to finalize. Wound care per the Podiatry team. Consider transfer to higher level of care for closer monitoring given the patient's AMS. Consider BIPAP to see if this helps with the patient's AMS. Continue Vancomycin IV. Pharmacy to dose. Goal trough ~15. Random Vanc 08/23/18 15. Continue cefepime 2 grams IV Q12H. Duration of treatment depends on the clinical picture. Monitor renal function and for drug toxicity and dose-adjust antibiotics. Will need to monitor Vanc levels closely given the patient's history of CKD.
[2018-08-24] MEDS ORDERED: Vancomycin 500 MG in 0.9 % Sodium Chloride Mini Bag 100 ML IVPB ONE ×2 (17:27→20:00)
[2018-08-24] MEDS: 0.9 % Sodium Chloride 1,000 ML IVC SCH ×2 (17:49→17:53)
[2018-08-24 19:25] LABS: VBG HCO3 25 mEq/L (21-27); VBG PCO2 55 mmHg (41-51); VBG PH 7.27 pH Units (7.32-7.42); VBG PO2 204 mmHg (25-50)
[2018-08-25] MEDS ORDERED: *HR* LORazepam 2 MG/ML VIAL IM STA (02:46)
[2018-08-25] MEDS: Cefepime HCl 2,000 MG in Water for inj. (sterile) 20 ML 20 ML IVP SCH ×2 (05:35→17:58)
[2018-08-25] MEDS: MOMETASONE FUROATE 100 mcg Inhaler IH SCH ×2 (07:39→22:16)
--- NOTE | 2018-08-25 07:48 | Internal Med Progress Note ---
Hospitalist Progress Note - Encounter Date of Encounter: 08/25/18 Time of Encounter: 07:48 - Subjective Interval History: Pt yesterday was confused with decreased arousal associated with tremoring. Today, wakes easily to voice and answers some questions and follows commands, although is still slightly tremulous. Denies CP, SOB, abd pain, N/V/D, or foot pain. - Exam Vitals: Temp Pulse Resp BP Pulse Ox 97.9 F 68 20 101/46 93 08/25/18 04:06 08/25/18 04:06 08/25/18 07:39 08/25/18 04:06 08/25/18 07:39 Exam: General: improved eye contact, disheveled and glassy eyed, with general shakiness/twitching although less than yesterday Thoracic: Normal breath sounds b/l, no wheezing or crackles Cardio: Normal S1 and S2, regular rate and rhythm Abdomen: Soft, nontender, obese Extremities: Warm, well perfused. Does have edema b/l legs Skin: wound vac in place R forefoot at site of toe amputations Neuro: Somnolent, remains oriented to person and place. Speech occasionally fluent. Stable to improved resting/postural tremor and almost no more spontaneous twitching of extremities. Pupils equal and reactive. Follows commands. Repetition and naming intact. - Summary of Assessment and Plan Summary of Assessment and Plan: Dmitri Sellers is a 47 M w hx DM2, COPD and chronic hypoxic resp failure on 2L, CAD, HTN, HLD, and non-Hodgkin's lymphoma, who p/w pain and discoloration of R 3rd toe, found to have gangrene and osteomyelitis. Acute metabolic encephalopathy: likely multifactorial due to ISIDRO on CKD, metabolic acidosis, recent surgery, intermittent hypoxia, and possible med side effect, with inability to exclude TIA/CVA despite no focal neuro deficits and normal CT head - precautions - hypoxia and acidosis have resolved - holding gabapentin and oxycodone - MRI head if able R foot osteomyelitis: s/p toe amputations 08/22 by podiatry, and surg path [employer] A strep and morganella. OSH wound culture also w MRSA. - ID following, appreciate rec's - will need PICC for abx - continue empiric vanc/cefepime/flagyl, and follow ID rec's RLE gangrene: s/p amputation 08/22 by podiatry - podiatry following, appreciate co-management - PT/OT, plan for SNF, SW following ISIDRO, unknown if CKD: Cr 2.23 on admit and has increased during hospitalization, Neph following at this time - Neph following, appreciate rec's - holding home lasix 20 daily Metabolic acidosis: unclear etiology, resolved Leukocytosis: resolved Anemia: maintain Hb >7 COPD and chronic hypoxic respiratory failure: home 2L and inhalers HTN: home toprol CAD/HLD: home statin NHL: need to get records Morbid obesity: BMI 42 PPx: sqh FEN: renal ADA, no MIVF Lines: PIV Consults: Podiatry, ID, Neph Code: Full Dispo: patient requires inpatient eval and management at this time. Anticipate 2-3 days. Will likely need SNF for IV abx Internal Medicine: Result - Labs CBC & Chem 7: 08/25/18 08:21 08/25/18 08:21 Labs: Short CBC 08/24/18 Range/Units 07:14 WBC 14.5 H (4.3-11.1) K/mcL Hgb 8.6 L (12.9-16.9) g/dL Hct 28.6 L (37.5-50.1) % Plt Count 593 H (140-400) K/mcL Neutrophils # 10.1 H (1.6-8.9) K/mcL BMP 08/24/18 07:14 Sodium 135 L Potassium 4.9 Chloride 102 Carbon Dioxide 27 BUN 51 H Creatinine 2.80 H Glucose 91 Calcium 8.3 L Liver Function 08/24/18 Range/Units 07:14 Total Bilirubin 0.3 (0.3-1.0) mg/dL AST 20 (13-39) Units/L ALT 17 (7-52) Units/L Alkaline Phosphatase 332 H (34-104) Units/L Albumin 3.0 L (3.5-5.7) g/dL - ABG Interpretation ABG results: ABG ABG pH 7.29 pH Units (7.32-7.45) L 08/24/18 10:13 ABG pCO2 56 mmHg (35-45) H 08/24/18 10:13 ABG pO2 53 mmHg (85-104) L 08/24/18 10:13 ABG O2 Saturation 82 % (95-98) L 08/24/18 10:13 PT/INR, D-dimer PT 13.6 Seconds (9.4-12.1) H 08/20/18 05:47 - Impressions Impressions Head CT 08/24/18 07:24 IMPRESSION: Limited examination secondary to extensive patient motion. However, no acute intracranial abnormality is demonstrated. No evidence of a bleed. RECOMMENDATIONS: If clinical symptoms persist, a repeat examination is recommended when the patient is more stable. D/ / Kwame Zuniga MD / Kwame Zuniga MD Interpreting Provider: Kwame Zuniga MD Chest X-Ray 08/24/18 14:02 IMPRESSION: Cardiomegaly with pulmonary vascular congestion. D/ / William Combs / William Combs Interpreting Provider: William Combs Consult Discharge Plan - Plan Referrals: Roslyn Cooper MD [Primary Care Provider] -
[2018-08-25] MEDS: Insulin LISPRO 300 UNITS/3 ML VIAL SQ SCH ×3 (07:52→17:57)
[2018-08-25 08:47] LABS: Hematocrit 24.9 % (37.5-50.1); Hemoglobin 7.7 g/dL (12.9-16.9); Mean Corpuscular HGB Conc 30.9 g/dL (31.6-35.5); Mean Corpuscular Hemoglobin 26.8 pg (28.0-33.3); Mean Corpuscular Volume 86.8 fL (83.0-100.0); Mean Platelet Volume 9.2 fL (9.4-12.4); Platelet Count 491 K/mcL (140-400); Red Blood Count 2.87 M/mcL (4.19-5.50); Red Cell Distribution Width 17.2 % (11.5-14.5)
[2018-08-25 08:59] LABS: VBG HCO3 26 mEq/L (21-27); VBG PCO2 53 mmHg (41-51); VBG PO2 167 mmHg (25-50)
[2018-08-25] MEDS: metroNIDAZOLE 500 MG TABLET PO SCH ×3 (09:03→17:57)
[2018-08-25] MEDS: Metoprolol XL (24 HR) Succ 25 MG TAB.ER.24H PO SCH (09:04)
[2018-08-25] MEDS: Folic Acid 1 MG TABLET PO SCH (09:04)
[2018-08-25] MEDS: Loratadine 10 MG TABLET PO SCH (09:04)
[2018-08-25 09:15] LABS: Albumin 2.7 g/dL (3.5-5.7); Albumin/Globulin Ratio 0.7 (1.1-2.2); Bilirubin,Direct 0.1 mg/dL (0.0-0.2); Bilirubin,Indirect 0.2 mg/dL (0.0-1.2); Bilirubin,Total 0.3 mg/dL (0.3-1.0); Calcium 8.4 mg/dL (8.6-10.3); Magnesium 2.1 mg/dL (1.6-2.6); Potassium 4.8 mEq/L (3.5-5.1); Total Protein 6.7 g/dL (6.4-8.9)
--- NOTE | 2018-08-25 11:41 | Nephrology Progress Note ---
Date of Encounter: 08/25/18 Time of Encounter: 13:30 - Assessment and Plan (1) ISIDRO (acute kidney injury) Current Visit: Yes Status: Acute Stable renal function. No indications for HAND TAPPER. And so for the time being, I recommend a renal protective and conservative strategy: avoid nephrotoxins as able, those medications by GFR in avoid nephrotoxins as well as sedatives that could have delayed clearance in the setting of ISIDOR. I spent significant time talking with the patient's family provided in depth comprehensive medical decision making and evaluation and management as well as a family meeting. (2) Acute kidney injury superimposed on CKD Current Visit: Yes Status: Acute See above (3) Altered mental state Current Visit: Yes Status: Acute See above Qualifiers: Altered mental status type: disorientation Qualified Code(s): R41.0 - Disorientation, unspecified (4) Cellulitis of right toe Current Visit: Yes Status: Acute As per primary (5) Non-Hodgkin lymphoma Current Visit: Yes Status: Acute As per primary and oncology Qualifiers: Non-Hodgkin lymphoma type: unspecified type Lymphoma site: inguinal Qualified Code(s): C85.95 - Non-Hodgkin lymphoma, unspecified, lymph nodes of inguinal region and lower limb Subjective Principal diagnosis: ISIDRO with AMS Interval history: The patient was seen and examined. Upon my arrival I found his spouse talking outside of the patient's room in a frustrated manner with the floor registered nurse. I was happy to discuss his care with his spouse, and we talked about all of his labs and renal care, and she thanked me for the update. She said that he sees a drapery installer in [place], but she cannot remember the drapery installer's name. He also sees an Oncologist. The patient has altered mental status and thus was not able to provide further subjective history for this note. There were several of his children and other family members present in the room who were also updated. The RN thanked me for helping calm the situation. Objective - Vital Signs Vital signs: Vital Signs Temp Pulse Resp BP Pulse Ox 08/25/18 07:49 98.7 F 67 20 158/95 95 08/25/18 07:39 20 93 08/25/18 04:06 97.9 F 68 17 101/46 93 08/25/18 00:14 98.1 F 77 16 93/80 95 08/24/18 20:28 17 95 08/24/18 19:56 98.5 F 72 14 108/82 100 08/24/18 19:53 98.5 F 72 14 108/82 100 08/24/18 16:46 23 97 Intake and Output 08/24/18 08/25/18 08/25/18 23:59 07:59 15:59 Intake Total 420 / 900 20 / 20 Output Total 380 / 680 225 / 230 5 / 230 Balance 40 / 220 -205 / -210 -5 / -210 Intake: IV Fluids 420 / 420 20 / 20 Maxipime 2,000 MG In Water for 60 / 60 20 / 20 inj. (sterile) 20 ML @ 300 mls/ hr IVP Q12HR [facility]ER[facility] Rx#:[id number] Calcium Gluconate 1,000 MG In 0 110 / 110 .9 % Sodium Chloride 100 ML @ 220 mls/hr IVPB ONCE ONE Rx#: [id number] Vancocin 750 MG In 0.9 % Sodium 250 / 250 Chloride 250 ML @ 250 mls/hr IVPB ONCE ONE Rx#:[id number] Oral 0 / 480 Output: Urine 375 / 675 225 / 225 Wound Drainage 5 / 5 5 / 5 Right Foot 5 / 5 5 / 5 Other: Meal NPO Percent of Meal Consumed 0% # Voids 1 # Urine Diapers 2 2 1 Blood Glucose* 87 79 - General Appearance Exam: General appearance: Present: well-developed, well-nourished, appears started age, obese, fatigue, frail EENT: Present: ATNC, PERRL, mucous membranes moist Neck: Present: supple Respiratory: Present: course breath sounds Cardiology: Present: no edema, regular rate, regular rhythm, normal S1, normal S2 Gastrointestinal: Present: normoactive bowel sounds, no guarding, obese Integumentary: Present: ecchymotic, hyperpigmentation Additional Comments: right foot dressing was C/D/I Neurologic: Present: confused, disoriented Additional Comments: awakens to verbal stimuli but was only loosely able to focus on verbal commands Musculoskeletal: Present: no clubbing Psychiatric: Present: cooperative (but confused) - Lab 08/26/18 08:38 08/26/18 08:38 Most recent lab results 08/25/18 08:21 Calcium 8.4 L Magnesium 2.1 Consult Discharge Plan - Plan Referrals: Roslyn Cooper MD [Primary Care Provider] -
[2018-08-25] MEDS: *HR* Heparin 5,000 UNIT/ML VIAL SQ SCH (17:58)
[2018-08-25] MEDS ORDERED: Dextrose Gel 15 GM/37.5 ML TUBE PO PRN (18:43)
[2018-08-26] MEDS: Cefepime HCl 2,000 MG in Water for inj. (sterile) 20 ML 20 ML IVP SCH (05:46)
[2018-08-26] MEDS: *HR* Heparin 5,000 UNIT/ML VIAL SQ SCH ×2 (05:57→19:09)
[2018-08-26] MEDS: Insulin LISPRO 300 UNITS/3 ML VIAL SQ SCH ×3 (07:26→16:56)
[2018-08-26] MEDS: MOMETASONE FUROATE 100 mcg Inhaler IH SCH (07:59)
[2018-08-26] MEDS: Loratadine 10 MG TABLET PO SCH (08:41)
[2018-08-26] MEDS: Metoprolol XL (24 HR) Succ 25 MG TAB.ER.24H PO SCH (08:41)
[2018-08-26] MEDS: Folic Acid 1 MG TABLET PO SCH (08:41)
[2018-08-26] MEDS: metroNIDAZOLE 500 MG TABLET PO SCH (08:41)
[2018-08-26] MEDS ORDERED: Bisacodyl 10 MG RECTAL SUPPOSITORY RC PRN (08:57)
[2018-08-26 09:24] LABS: Hematocrit 26.9 % (37.5-50.1); Hemoglobin 8.2 g/dL (12.9-16.9); Mean Corpuscular HGB Conc 30.5 g/dL (31.6-35.5); Mean Corpuscular Hemoglobin 26.1 pg (28.0-33.3); Mean Corpuscular Volume 85.7 fL (83.0-100.0); Mean Platelet Volume 9.2 fL (9.4-12.4); Platelet Count 554 K/mcL (140-400); Red Blood Count 3.14 M/mcL (4.19-5.50); Red Cell Distribution Width 17.2 % (11.5-14.5)
[2018-08-26 09:42] LABS: Calcium 8.1 mg/dL (8.6-10.3); Potassium 4.9 mEq/L (3.5-5.1)
--- NOTE | 2018-08-26 11:03 | Internal Med Progress Note ---
Hospitalist Progress Note - Encounter Date of Encounter: 08/26/18 Time of Encounter: 10:54 - Subjective Interval History: Pt awakens to voice and tells me his name, answers basic questions although less so than yesterday, and sticks tongue out to command but is somnolent and does not follow other commands. Long discussion with pt's yesterday; she says he shakes with sugar <100 and since keeping it >100 overnight his shakiness has actually diminished. Mental status overall though seems about the same as yesterday. No CP or abd pain. Pt unsure when last BM was, and RN states none charted for several days. - Exam Vitals: Temp Pulse Resp BP Pulse Ox 98.5 F 69 16 137/76 95 08/26/18 06:53 08/26/18 06:53 08/26/18 08:02 08/26/18 06:53 08/26/18 08:02 Exam: General: poor eye contact with upward fluttering, disheveled and glassy eyed, with general shakiness/twitching although less than yesterday Thoracic: Normal breath sounds b/l, no wheezing or crackles Cardio: Normal S1 and S2, regular rate and rhythm Abdomen: Soft, nontender, obese Extremities: Warm, well perfused. Does have edema b/l legs Skin: wound vac in place R forefoot at site of toe amputations Neuro: Somnolent, is oriented to person only today. Speech occasionally fluent. Improved shakiness and no spontaneous twitching. Pupils equal and reactive. Follows commands initially but then dozes off. Repetition and naming intact. - Summary of Assessment and Plan Summary of Assessment and Plan: Dmitri Sellers is a 47 M w hx DM2, COPD and chronic hypoxic resp failure on 2L, CAD, HTN, HLD, CKD3a, and non-Hodgkin's lymphoma, who p/w pain and discoloration of R 3rd toe, found to have gangrene and osteomyelitis. Acute metabolic encephalopathy: likely multifactorial due to ISIDRO on CKD, metabolic acidosis, recent surgery, intermittent hypoxia, relative hypoglycemia, and possible med side effect. CT and MRI head unremarkable. Hypoxia and acidosis have resolved, holding gabapentin and oxycodone, keeping glucose >100, and ISIDRO is steadily improving. - precautions - avoid sedating meds - deescalating from cefepime as below - Neuro consult if no further improvement by tomorrow R foot osteomyelitis: s/p toe amputations 08/22 by podiatry, and surg path micro growing GAS, MSSA, and morganella. OSH wound culture also w MRSA. - ID following, appreciate rec's - will need PICC for abx - narrow to ceftriaxone 2g daily to cover strep, MSSA, and morganella - will continue empiric vanc as OSH cultures w MRSA, will await ID rec's in this regard RLE gangrene: s/p amputation 08/22 by podiatry - podiatry following, appreciate co-management - PT/OT, plan for SNF, SW following ISIDRO on CKD3a: Cr 2.23 on admit and has increased during hospitalization, Neph following at this time - Neph following, appreciate rec's - holding home lasix 20 daily and monitor fluid status, currently does have pitting edema below knees Anemia: maintain Hb >7 COPD and chronic hypoxic respiratory failure: home 2L and inhalers HTN: home toprol CAD/HLD: home statin NHL: need to get records Morbid obesity: BMI 42 PPx: sqh FEN: renal ADA, no MIVF Lines: PIV Consults: Podiatry, ID, Neph Code: Full Dispo: patient requires inpatient eval and management at this time. Anticipate 2-3 days. Will likely need SNF for IV abx Internal Medicine: Result - Labs CBC & Chem 7: 08/26/18 08:38 08/26/18 08:38 Labs: Short CBC 08/26/18 Range/Units 08:38 WBC 10.0 (4.3-11.1) K/mcL Hgb 8.2 L (12.9-16.9) g/dL Hct 26.9 L (37.5-50.1) % Plt Count 554 H (140-400) K/mcL BMP 08/26/18 08:38 Sodium 143 Potassium 4.9 Chloride 110 H Carbon Dioxide 27 BUN 47 H Creatinine 2.21 H Glucose 88 Calcium 8.1 L - ABG Interpretation ABG results: ABG ABG pH 7.29 pH Units (7.32-7.45) L 08/24/18 10:13 ABG pCO2 56 mmHg (35-45) H 08/24/18 10:13 ABG pO2 53 mmHg (85-104) L 08/24/18 10:13 ABG O2 Saturation 82 % (95-98) L 08/24/18 10:13 PT/INR, D-dimer PT 13.6 Seconds (9.4-12.1) H 08/20/18 05:47 Consult Discharge Plan - Plan Referrals: Roslyn Cooper MD [Primary Care Provider] -
--- NOTE | 2018-08-26 11:55 | Nephrology Progress Note ---
Date of Encounter: 08/26/18 Time of Encounter: 11:15 - Assessment and Plan (1) ISIDRO (acute kidney injury) Current Visit: Yes Status: Acute Renal function continues to slowly improved. No indications for INVESTIGATIONS CHIEF. Avoid nephrotoxins as able. Discussed with the RN. Despite not needing dialysis, he still has elevated creatinine, and so a renal protective/conservative strategy should still be followed. He will need strict I's and O recordings, daily weights, avoidance of nephrotoxic agents and renal dosing. I will continue to follow with you, and thank you. (2) Acute kidney injury superimposed on CKD Current Visit: Yes Status: Acute See above (3) Anemia Current Visit: Yes Status: Acute He has a hematologic malignancy history, so I would not recommend using EPO unless this was specifically allowed by hematology. Qualifiers: Anemia type: unspecified type Qualified Code(s): D64.9 - Anemia, unspecified (4) Altered mental state Current Visit: Yes Status: Acute See above Qualifiers: Altered mental status type: disorientation Qualified Code(s): R41.0 - Disorientation, unspecified (5) Cellulitis of right toe Current Visit: Yes Status: Acute As per primary (6) Non-Hodgkin lymphoma Current Visit: Yes Status: Acute As per primary and oncology Qualifiers: Non-Hodgkin lymphoma type: unspecified type Lymphoma site: inguinal Qualified Code(s): C85.95 - Non-Hodgkin lymphoma, unspecified, lymph nodes of inguinal region and lower limb Subjective Principal diagnosis: ISIDRO Interval history: The patient was seen and examined earlier today, and no family were present at the time of my interview and exam. He was able to awaken to only some verbal commands, but he was largely unable to answer any of my questions, thus limiting the subjective portion of this note. Objective - Vital Signs Vital signs: Vital Signs Temp Pulse Resp BP Pulse Ox 08/26/18 11:18 98.8 F 61 18 154/78 93 08/26/18 08:02 16 95 08/26/18 06:53 98.5 F 69 18 137/76 94 08/26/18 03:20 98.5 F 63 20 126/79 92 08/25/18 23:24 97.6 F 61 20 112/80 93 08/25/18 22:16 22 96 08/25/18 19:21 98.7 F 71 19 138/96 96 08/25/18 16:59 97.6 F 95 20 166/87 98 08/25/18 11:54 98.7 F 65 18 141/70 97 Intake and Output 08/25/18 08/26/18 08/26/18 23:59 07:59 15:59 Intake Total 240 / 260 270 / 270 Balance 240 / -95 270 / 270 Intake: IV Fluids 270 / 270 Maxipime 2,000 MG In Water for inj. (sterile) 20 ML @ 300 mls/ hr IVP Q12HR [facility] Rx#:[id number] Vancocin 750 MG In 0.9 % Sodium 250 / 250 Chloride 250 ML @ 250 mls/hr IVPB ONCE ONE Rx#:[id number] Oral 220 / 220 Other: Percent of Meal Consumed 100% # Urine Diapers 1 1 1 Blood Glucose* 114 99 92 - General Appearance General appearance: Present: well-developed, well-nourished, appears started age, obese, fatigue, frail EENT: Present: ATNC, PERRL, mucous membranes moist Neck: Present: supple Respiratory: Present: course breath sounds Cardiology: Present: no edema, regular rate, regular rhythm, normal S1, normal S2 Gastrointestinal: Present: normoactive bowel sounds, no guarding, obese Integumentary: Present: ecchymotic, hyperpigmentation Additional Comments: right foot dressing was C/D/I Neurologic: Present: confused, disoriented Additional Comments: follows verbal commands Musculoskeletal: Present: no clubbing Psychiatric: Present: cooperative (but confused) - Lab 08/26/18 08:38 08/26/18 08:38 Most recent lab results 08/26/18 08:38 Calcium 8.1 L Consult Discharge Plan - Plan Referrals: Roslyn Cooper MD [Primary Care Provider] -
[2018-08-26] MEDS: cefTRIAXone 2,000 MG in Water for inj. (sterile) 20 ML 20 ML IVP SCH (12:15)
--- NOTE | 2018-08-26 15:35 | Event Note ---
Date of Encounter: 08/26/18 Time of Encounter: 15:10 Asked by RN to come to bedside to help answer pt's 's questions. Upon entering, she was visibly upset and began a near continuous stream of rhetorical questions and loudly criticizing pt's care bordering on yelling. Attempts to calm and redirect pt's initially successful and I was able to explain that yesterday we checked MRI of his head which was unremarkable, his O2 and pH and Cr levels all improved/improving, and that today we were narrowing his antibiotics. I also offered her communication with a patient advocate as this was available to any patient/family with concerns about the care being provided. At this point she began to demand blood transfusions as well as repeat ABGs, and upon explanation that these are currently not indicated (Hb 8.2, O2 sats mid 90s on 2L), she began to insult this provider on several things, loud enough that RN outside the room felt worried and called security in case of further escalation. Requests that the pt's lower her voice and refrain from insults unmet, and further attempts to redirect and calm unsuccessful, and thus I informed her that I needed to leave the room. Security present outside of room at this point, and were informed that at present pt's was not verbally or physically threatening and they were not needed, will allow pt's to stay at his bedside for now. Of note, prior to leaving room, pt stated "I have to pee, I have to pee now". SOLAR TECHNICIAN and myself helped pt stand up and he urinated in urinal prior to sitting back down and then getting himself in bed. He was a little unsteady/uncoordinated while standing but was able to communicate his needs and assist in process, overall an improvement from this AM and yesterday. RN subsequently notified me that pt's requesting transfer to [facility] in [place] where he gets his Neph, Heme, and Cardio care. I did call them and they do not have ID consultation (currently needed) nor do they have neurology consultation (which I feel at this point is warranted), and thus it would be inadvisable at this point to transfer to a place without these services. Per RN, pt's agreeable to this for now.
[2018-08-26 22:49] LABS: Bilirubin,Urine Negative (Negative); Blood,Urine Large (Negative); Clarity,Urine Cloudy (Clear); Color,Urine Yellow (Yellow); Glucose,Urine (UA) Normal (Normal); Ketones,Urine Negative (Negative); Leukocyte Esterase,Urine Negative (Negative); Nitrite,Urine Negative (Negative); PH,Urine 5.5 pH Units (5.0-8.0); Protein,Urine 100 mg/dL (Neg-Trace); Specific Gravity,Urine 1.018 (1.010-1.025); Urobilinogen,Urine Normal (Normal)
[2018-08-26 22:51] LABS: Bacteria,Urine None Seen per hpf (None-Few); Hyaline Casts,Urine None Seen per lpf (None-Few); Squamous Epithelial Cell,Urine Many per lpf (None-Few)
[2018-08-27] MEDS: MOMETASONE FUROATE 100 mcg Inhaler IH SCH ×3 (00:31→19:57)
[2018-08-27] MEDS: *HR* Heparin 5,000 UNIT/ML VIAL SQ SCH ×2 (05:04→17:47)
[2018-08-27 08:33] LABS: Hematocrit 25.7 % (37.5-50.1); Hemoglobin 7.8 g/dL (12.9-16.9); Mean Corpuscular HGB Conc 30.4 g/dL (31.6-35.5); Mean Corpuscular Volume 85.7 fL (83.0-100.0); Mean Platelet Volume 9.3 fL (9.4-12.4); Platelet Count 507 K/mcL (140-400); Red Cell Distribution Width 17.2 % (11.5-14.5)
[2018-08-27] MEDS: Insulin LISPRO 300 UNITS/3 ML VIAL SQ SCH ×3 (08:42→17:45)
[2018-08-27 08:56] LABS: Calcium 8.3 mg/dL (8.6-10.3); Potassium 4.4 mEq/L (3.5-5.1)
[2018-08-27] MEDS: cefTRIAXone 2,000 MG in Water for inj. (sterile) 20 ML 20 ML IVP SCH (10:01)
[2018-08-27] MEDS: Folic Acid 1 MG TABLET PO SCH (10:01)
[2018-08-27] MEDS: Metoprolol XL (24 HR) Succ 25 MG TAB.ER.24H PO SCH (10:01)
[2018-08-27] MEDS: Loratadine 10 MG TABLET PO SCH (10:01)
--- NOTE | 2018-08-27 10:49 | Event Note ---
Date of Encounter: 08/27/18 Time of Encounter: 10:48 Received a phone call from Dr. Adams this morning. Neurology consult has been canceled. It is reported that the patient's mental status has returned to baseline as of this morning after changing ABX.
--- NOTE | 2018-08-27 11:06 | Internal Med Progress Note ---
Hospitalist Progress Note - Encounter Date of Encounter: 08/27/18 Time of Encounter: 11:01 - Subjective Interval History: Pt this AM is awake and oriented, answers all questions and speaking fluently. Says his R foot is definitely hurting quite a bit but otherwise denies fever, chills, abd pain, N/V/D, CP, SOB, and has good appetite. - Exam Vitals: Temp Pulse Resp BP Pulse Ox 97.8 F 61 16 128/90 95 08/27/18 07:32 08/27/18 07:32 08/27/18 07:32 08/27/18 07:32 08/27/18 07:41 Exam: General: NAD, good eye contact, chronically ill appearing, obese, in good spi rits and smiling today Thoracic: Normal breath sounds b/l, no wheezing or crackles Cardio: Normal S1 and S2, regular rate and rhythm Abdomen: Soft, nontender, obese Extremities: Warm, well perfused. Does have edema b/l legs Skin: wound vac in place R forefoot at site of toe amputations Neuro: awake, fully oriented, speech fluent, no abnormal movements, strength and sensation present throughout, able to ambulate without assistance (despite advice to stay off his R foot) - Summary of Assessment and Plan Summary of Assessment and Plan: Dmitri Sellers is a 47 M w hx DM2, COPD and chronic hypoxic resp failure on 2L, CAD, HTN, HLD, CKD3a, and non-Hodgkin's lymphoma, who p/w pain and discoloration of R 3rd toe, found to have gangrene and osteomyelitis. Acute metabolic encephalopathy: multifactorial including from renal dysfunction and cefepime, ISIDRO improving, cefepime stopped, brain MRI unremarkable - today is completely resolved, no further eval and cancel neuro consult planned for today R foot osteomyelitis: s/p toe amputations 08/22 by podiatry, and surg path micro growing GAS, MSSA, and morganella. OSH wound culture also w MRSA. - continue ceftriaxone 2g daily and vanc dosed by pharmacy - ID following, awaiting final rec's - will likely need PICC for abx and will arrange for this today if ID recommends RLE gangrene: s/p amputation 08/22 by podiatry - podiatry following, appreciate co-management - PT/OT, plan for SNF, SW following ISIDRO on CKD3a: Cr 2.23 on admit and has increased during hospitalization, Neph following at this time. ISIDRO improving - Neph following, appreciate rec's - holding home lasix 20 daily and monitor fluid status, currently does have pitting edema below knees Anemia: maintain Hb >7 COPD and chronic hypoxic respiratory failure: home 2L and inhalers HTN: home toprol CAD/HLD: home statin NHL: need to get records Morbid obesity: BMI 42 PPx: sqh FEN: renal ADA, no MIVF Lines: PIV Consults: Podiatry, ID, Neph Code: Full Dispo: patient requires inpatient eval and management at this time. Anticipate 1-2 days. Will need v SNF for IV abx Internal Medicine: Result - Labs CBC & Chem 7: 08/27/18 07:56 08/27/18 07:56 Labs: Short CBC 08/27/18 Range/Units 07:56 WBC 11.2 H (4.3-11.1) K/mcL Hgb 7.8 L (12.9-16.9) g/dL Hct 25.7 L (37.5-50.1) % Plt Count 507 H (140-400) K/mcL BMP 08/27/18 07:56 Sodium 142 Potassium 4.4 Chloride 106 Carbon Dioxide 29 BUN 39 H Creatinine 1.97 H Glucose 107 H Calcium 8.3 L Urine 08/26/18 Range/Units 22:35 Urine Color Yellow (Yellow) Urine Clarity Cloudy A (Clear) Urine pH 5.5 (5.0-8.0) pH Units Ur Specific [place] 1.018 (1.010-1.025) Urine Protein 100 H (Neg-Trace) mg/dL Urine Glucose (UA) Normal (Normal) mg/dL - ABG Interpretation ABG results: ABG ABG pH 7.29 pH Units (7.32-7.45) L 08/24/18 10:13 ABG pCO2 56 mmHg (35-45) H 08/24/18 10:13 ABG pO2 53 mmHg (85-104) L 08/24/18 10:13 ABG O2 Saturation 82 % (95-98) L 08/24/18 10:13 PT/INR, D-dimer PT 13.6 Seconds (9.4-12.1) H 08/20/18 05:47 Consult Discharge Plan - Plan Referrals: Roslyn Cooper MD [Primary Care Provider] -
--- NOTE | 2018-08-27 12:23 | Podiatry Progress Note ---
Date of Encounter: 08/27/18 Time of Encounter: 11:30 - Assessment and Plan (1) Gangrene of toe of right foot Current Visit: Yes Status: Acute Assessment: -Post op day #4 amputation toes 1,3,5 right foot with 3rd metatarsal head amputation with Dr. Flower on 08/23/18 -WBC 11.2 -Wound cultures final Morganella sharan.ssp morganii, Strep pyogenes (Group A), and Staphylococcus aureus -Anaerobic cultures pending no growth -Blood cultures final no growth -Surgical path pending -Sutures noted to #1, 3, and 5 metatarsals, well approximated, maceration noted to surrounding tissue healing -No foul odor, minimal erythema, no streaking, 1/4 edema noted to RLE Plan: -Cleansed with sterile saline, and 4x4 dry gauze -Skin was prepped with Alkare and maceration was painted with betadine -Wound vac placed with black granulofoam, draped with tegaderm in usual fashion with window-pane dressing, bridged to dorsal medial aspect of foot. Adaptic and 4x4 dry gauze placed to suture lines. Good seal was noted and suction was set at 125 mmHG -Heel weight bearing only with assistance -Pending final recommendations from ID -Recommend social service consult for home care vs ECF d/t placement of wound vac, wound vac dressing changes every Monday, Monday, and Monday -[facility] up [facility] one week after discharge (2) Chronic ulcer of great toe of left foot with fat layer exposed Current Visit: Yes Status: Acute Assessment: -Her stage 2 ulceration -Maceration noted to surrounding tissue appears to be healing Plan: -Macerated tissue painted with betadine -Wound bed pink in color, cleansed with sterile saline, covered with calcium alginate, 4x4 dry gauze, and Kerlix, secured with tape -Continue dressing changes daily Subjective Principal diagnosis: ISIDRO Interval history: Patient is alert and oriented, answering questions appropriately, sitting in bed, and no acute distress noted. Patient denies any chest pain, shortness of breath, or calf pain. He denies any fever, chills, nausea, vomiting, or diarrhea. Patient reports he is ready to go home and may get a PICC line today. Objective - Vital Signs Vital Signs: Vital Signs Temp Pulse Resp BP Pulse Ox 08/27/18 11:31 97.8 F 62 16 141/90 98 08/27/18 07:41 95 08/27/18 07:32 97.8 F 61 16 128/90 95 08/27/18 07:21 18 92 08/27/18 03:09 97.7 F 65 16 132/73 97 08/27/18 00:10 98 F 71 16 135/109 95 08/26/18 20:22 97.7 F 115 18 161/84 08/26/18 16:52 98.5 F 74 18 141/90 96 Intake and Output 08/26/18 08/27/18 08/27/18 23:59 07:59 15:59 Intake Total 1730 / 2500 360 / 360 Output Total 775 / 1150 650 / 950 300 / 950 Balance 955 / 1350 -650 / -590 60 / -590 Intake: IV Fluids 250 / 540 Vancocin 1,000 MG In 0.9 % 250 / 250 Sodium Chloride 250 ML @ 166. 667 mls/hr IVPB ONCE ONE Rx#: [id number] Oral 1480 / 1960 360 / 360 Output: Urine 775 / 1150 650 / 950 300 / 950 Other: Meal Breakfast Percent of Meal Consumed 10% Stool Size Copious Stool Consistency soft formed Stool Color Brown # Bowel Movements 1 Weight 141.1 kg Blood Glucose* 129 111 121 Patient Weight 08/27/18 23:59 Weight 141.1 kg - Exam Exam: Constitutional: Alert and oriented, no acute distress noted, answering questions appropriately. Vascular: 1/4 DP/PT bilaterally, CFT <3 sec to all digits LLE, warm to warm from tibia to toes bilaterally, digit amputation to right foot x 5, 1/4 edema right foot Neurologic: Absent sensation to touch, normal plantar response, Dermatologic: left hallux medial aspect her stage 2 ulceration, wound bed pink in color, minimal drainage noted, macerated improved noted to periwound, Sutures noted to #1, 3, and 5 metatarsals, well approximated, maceration noted to surrounding tissue and improving, opening of 3rd metatarsal, opening measuring 1 x 1 x 0.4 cm Musculoskeletal: 3/5 muscle strength and normal tone bilaterally. - Lab Result Diagrams: 08/27/18 07:56 08/27/18 07:56 Labs: Abnormal lab results WBC 11.2 K/mcL (4.3-11.1) H 08/27/18 07:56 RBC 3.00 M/mcL (4.19-5.50) L 08/27/18 07:56 Hgb 7.8 g/dL (12.9-16.9) L 08/27/18 07:56 Hct 25.7 % (37.5-50.1) L 08/27/18 07:56 MCH 26.0 pg (28.0-33.3) L 08/27/18 07:56 MCHC 30.4 g/dL (31.6-35.5) L 08/27/18 07:56 RDW 17.2 % (11.5-14.5) H 08/27/18 07:56 Plt Count 507 K/mcL (140-400) H 08/27/18 07:56 MPV 9.3 fL (9.4-12.4) L 08/27/18 07:56 10.1 K/mcL (1.6-8.9) H 08/24/18 07:14 PT 13.6 Seconds (9.4-12.1) H 08/20/18 05:47 ABG pH 7.29 pH Units (7.32-7.45) L 08/24/18 10:13 ABG pCO2 56 mmHg (35-45) H 08/24/18 10:13 ABG pO2 53 mmHg (85-104) L 08/24/18 10:13 ABG Total CO2 29 mEq/L (20-26) H 08/24/18 10:13 ABG O2 Saturation 82 % (95-98) L 08/24/18 10:13 VBG pH 7.30 pH Units (7.32-7.42) L 08/25/18 08:53 VBG pCO2 53 mmHg (41-51) H 08/25/18 08:53 VBG pO2 167 mmHg (25-50) H 08/25/18 08:53 Sodium 135 mEq/L (136-145) L 08/24/18 07:14 Potassium 5.5 mEq/L (3.5-5.1) H 08/23/18 03:11 Chloride 110 mEq/L (98-107) H 08/26/18 08:38 BUN 39 mg/dL (6-20) H 08/27/18 07:56 1.97 mg/dL (0.70-1.30) H 08/27/18 07:56 Est GFR ( Amer) 44 (> 60) L 08/27/18 07:56 Est GFR (Non-Af Amer) 36 (> 60) L 08/27/18 07:56 Glucose 107 mg/dL (70-105) H 08/27/18 07:56 POC Glucose 129 mg/dL (70-99) H 08/26/18 20:35 6.5 % (-5.6) H 08/18/18 19:07 304 (280-300) H 08/27/18 07:56 Calcium 8.3 mg/dL (8.6-10.3) L 08/27/18 07:56 Phosphorus 5.8 mg/dL (2.7-4.5) H 08/19/18 05:33 256 Units/L (34-104) H 08/25/18 08:21 2.7 g/dL (3.5-5.7) L 08/25/18 08:21 4.0 g/dL (2.4-3.5) H 08/25/18 08:21 0.7 (1.1-2.2) L 08/25/18 08:21 Green (Yellow) A 08/23/18 12:33 Cloudy (Clear) A 08/26/18 22:35 100 mg/dL (Neg-Trace) H 08/26/18 22:35 Large (Negative) H 08/26/18 22:35 Ur Leukocyte Esterase Trace (Negative) H 08/23/18 12:33 3-5 per hpf (0-3) H 08/26/18 22:35 5-15 per hpf (0-3) H 08/26/18 22:35 Ur Squamous Epith Cells Many per lpf (None-Few) H 08/26/18 22:35 Ur Culture Indicated? YES (NO) A 08/26/18 22:35 Protein/Creatinin Ratio 1.36 mg/mg (0.00-0.20) H 08/20/18 Unknown 61 mg/dL (1-14) H 08/20/18 Unknown Microbiology, Last 48 Hours 08/22/18 15:45 Anaerobic Culture - Preliminary Surgery At this time, no anaerobic growth is present. The culture will be finalized after 5 days of incubation. 08/26/18 22:35 Urine Culture - Preliminary Urine,Clean Catch Culture is incubating. 08/22/18 15:45 Surgical Biopsy Culture - Final Surgery Morganella sharan.ssp morganii Strep pyogenes (Group A) Staphylococcus aureus Consult Discharge Plan - Plan Referrals: Roslyn Cooper MD [Primary Care Provider] -
--- NOTE | 2018-08-27 13:14 | Nephrology Progress Note ---
Date of Encounter: 08/27/18 Time of Encounter: 08:40 - Assessment and Plan (1) ISIDRO (acute kidney injury) Current Visit: Yes Status: Acute Renal function continues to improve. Creatinine of 2.50 yesterday down to 2.21 today. Slightly low UOP of 0.3 cc/kg/hr. Mental status was improved considerably. UA shows microscopic RBCs and WBCs. - Recommend patient to obtain repeat UA in the outpatient. - Continue to avoid nephrotoxins. - Renal dosing of medications. Nephrology will sign off on this patient. (2) Altered mental state Current Visit: Yes Status: Acute Improved. A&Ox3 today. Qualifiers: Altered mental status type: disorientation Qualified Code(s): R41.0 - Disorientation, unspecified (3) Foot ulcer, left Current Visit: Yes Status: Acute Qualifiers: Non-pressure ulcer stage: unspecified non-pressure ulcer stage Qualified Code(s): L97.529 - Non-pressure chronic ulcer of other part of left foot with unspecified severity (4) Gangrene of toe of right foot Current Visit: Yes Status: Acute (5) Non-Hodgkin lymphoma Current Visit: Yes Status: Acute Qualifiers: Non-Hodgkin lymphoma type: unspecified type Lymphoma site: inguinal Qualified Code(s): C85.95 - Non-Hodgkin lymphoma, unspecified, lymph nodes of inguinal region and lower limb Subjective Principal diagnosis: ISIDRO Interval history: When seen this morning, patient was alert and oriented x 3. However, he was unaware of his situation: he couldn't tell me why he was in the hospital. He denied any chest pain or SOB. He denied any nausea or vomiting. Denied any abdominal pain. He did admit to continued pain in his RLE. He denied any s welling in his LE. Objective - Vital Signs Vital signs: Vital Signs Temp Pulse Resp BP Pulse Ox 08/27/18 11:31 97.8 F 62 16 141/90 98 08/27/18 07:41 95 08/27/18 07:32 97.8 F 61 16 128/90 95 08/27/18 07:21 18 92 08/27/18 03:09 97.7 F 65 16 132/73 97 08/27/18 00:10 98 F 71 16 135/109 95 08/26/18 20:22 97.7 F 115 18 161/84 08/26/18 16:52 98.5 F 74 18 141/90 96 Intake and Output 08/26/18 08/27/18 08/27/18 23:59 07:59 15:59 Intake Total 1730 / 2500 600 / 600 Output Total 775 / 1150 650 / 950 300 / 950 Balance 955 / 1350 -650 / -350 300 / -350 Intake: IV Fluids 250 / 540 Vancocin 1,000 MG In 0.9 % 250 / 250 Sodium Chloride 250 ML @ 166. 667 mls/hr IVPB ONCE ONE Rx#: [id number] Oral 1480 / 1960 600 / 600 Output: Urine 775 / 1150 650 / 950 300 / 950 Other: Meal Lunch Percent of Meal Consumed 100% Stool Size Copious Stool Consistency soft formed Stool Color Brown # Bowel Movements 1 Weight 141.1 kg Blood Glucose* 129 111 121 Patient Weight 08/27/18 23:59 Weight 141.1 kg - General Appearance General appearance: Present: appears started age, obese EENT: Present: mucous membranes moist Neck: Present: no JVD Respiratory: Present: clear Cardiology: Present: no murmurs, no rub, no gallops, regular rate, regular rhythm, normal S1, normal S2 Gastrointestinal: Present: normoactive bowel sounds, no tenderness, no guarding, no organomegaly, no masses Integumentary: Present: warm and dry Neurologic: Present: no focal deficit, alert and oriented x3, strength 5/5 Musculoskeletal: Present: no erythema, no cyanosis, no clubbing Additional Comments: RLE bandaged and intact with no signs or bleeding, pus, or drainage. - Lab 08/27/18 07:56 08/27/18 07:56 Most recent lab results 08/27/18 07:56 Calcium 8.3 L Consult Discharge Plan - Plan Referrals: Roslyn Cooper MD [Primary Care Provider] -
--- NOTE | 2018-08-27 17:32 | Infectious Disease Progress No ---
ID Progress Note Date of Encounter: 08/27/18 Time of Encounter: 16:47 - Subjective Subjective: Patient seen and examined. Appears comfortable sitting up in bed. Family at bedside. was very angry with the fact that apparently people are not listening to her. She tells me that she wanted clearance from the cardiology and pulmonary and the nephrology doctors at the outside facility prior to us putting a PICC line. She also was very mad at the fact that they gave him danilo cotics and she requested that I review the chart and see that they gave him narcotics. I even get a chest to speak and tell her that I am just infectious disease, had only involved with the antibiotics aspect of things. Patient denies any chest pain or shortness of breath no nausea or vomiting no diarrhea no urinary symptoms. Vital signs reviewed Labs noted Cultures noted - Objective CBC & Chem 7: 08/28/18 07:09 08/28/18 07:09 - Exam Vitals: Temp Pulse Resp BP Pulse Ox 97.8 F 60 18 140/72 97 08/27/18 16:30 08/27/18 16:30 08/27/18 16:30 08/27/18 16:30 08/27/18 16:30 Exam: GENERAL: Comfortable. Laying in bed NAD HEENT: PRIYA, EOMI LUNGS: Good air sounds bilaterally, no wheezing or rhonchi CV: RRR, S1 S2 ABDOMEN: Soft, nontender, + bowel sounds EXT: Adequate perfusion. bilateral feet surgicall wrapped NEURO: A&OX3; no focal deficit - Assessment and Plan (1) Leukocytosis Current Visit: Yes Status: Acute Appears chronic, labs dating back to 2014 reveal leukocytosis. Likely secondary to lymphoma, but difficult to discern given the patient's recent infection and new-onset AMS. No other SIRS criteria. Blood cultures drawn 08/18/18 are NGTD x 2 sets. Qualifiers: Leukocytosis type: unspecified Qualified Code(s): D72.829 - Elevated white blood cell count, unspecified SNOMED Code(s): 327414557, 399385025 (2) Gangrene of toe of right foot Current Visit: Yes Status: Acute Location: Right foot toe #3. Likely secondary to infection and ischemia. Causative organism: MRSA, MSSA, M. morgannii, and GBS based on wound culture goerges Rader. It is unclear it the patient had any trauma or open lesion prior to onset of infection. No pre-op imaging was completed here and I do have minimal records from [facility]. ESR and CRP were not checked. Podiatry consulted. Status post amputation toes #1, #3, #5 on the right foot (toes #2 and #4 previously amputated). Intra-op bone cultures of the 3rd toe positive for Morganella Morgagni, group A streptococcus and MSSA from surgical biopsy culture 08/22/2018 ABIs WNL bilaterally. TCPO2 monitoring showed ischemia bilaterally. Post-op MRI negative for acute abnormality. Currently on Vanc, Cefepime, and Flagyl. SNOMED Code(s): 68261780590297225 (3) Foot ulcer, left Current Visit: Yes Status: Acute Location: Left great toe. Etiology: Unclear. Clinically does not appear infected. Podiatry consulted and following. Qualifiers: Non-pressure ulcer stage: unspecified non-pressure ulcer stage Qualified Code(s): L97.529 - Non-pressure chronic ulcer of other part of left foot with unspecified severity SNOMED Code(s): 52803067 (4) Acute kidney injury superimposed on CKD Current Visit: Yes Status: Acute Unclear the patient's baseline renal function. Nephrology consulted and following. Seems to be improving SNOMED Code(s): 61940159 (5) Altered mental state Current Visit: Yes Status: Resolved Etiology: Unclear. Infection vs. metabolic vs. other. Leukocytosis, but no other SIRS criteria and this appears chronic, likely from lymphoma. According to nursing, patient was noncompliant with his O2 all night and sats were in the 70's. ABG shows respiratory acidosis (pH 7.29, CO2 56, O2 53), which could be contributing. CT head negative. Ammonia level normal. It is unclear if the patient drinks ETOH. --> Withdrawals?? No meningeal signs. Urinalysis not impressive. Qualifiers: Altered mental status type: disorientation Qualified Code(s): R41.0 - Disorientation, unspecified SNOMED Code(s): 398430520 (6) Right groin mass Current Visit: Yes Status: Acute CT of the abdomen pelvis completed 08/17 showed progression of the patient's lymphoma. Patient non-compliant with exam and unable to palpate the mass. SNOMED Code(s): 266255046 (7) Morbid obesity with BMI of 40.0-44.9, adult Current Visit: Yes Status: Chronic SNOMED Code(s): 694903756, 40136734651142 (8) Non-Hodgkin lymphoma Current Visit: Yes Status: Acute Course of treatment unknown at this point. It does not appear that the patient follows with [facility] and we have no records and the patient is unable to tell me anything and there is no family at the bedside. Qualifiers: Non-Hodgkin lymphoma type: unspecified type Lymphoma site: inguinal Quali fied Code(s): C85.95 - Non-Hodgkin lymphoma, unspecified, lymph nodes of inguinal region and lower limb SNOMED Code(s): 007804820 - Recommendations Recommendations: continue current antibiotics regimen with vancomycin, ceftriaxone and flagyl duration of treatment 6 weeks (d/w Dr. Flower) will need to monitor labs and kidney function very closely we can't put a picc line per nephrology request, so patient will likely needed tunneled cath goal vanc trough 15 will need weekly cbc, bmp, esr, crp and vanc trough on d/c follow up with ID clinic 2 weeks post discharge Consult Discharge Plan - Plan Additional Instructions: Please fax discharge summary to [phone] Referrals: Roslyn Cooper MD [Primary Care Provider] - 09/06/18 2:00 pm (Please take all medication you were prescribed here at the hospital with you to your appointment. Take photo ID, and insurance card with you.) Williams Flower DPM [Partnered Physician] - (1 week) Mell Romero, ACIDIZER [Advanced Practice Nurse] - 09/12/18 2:05 pm Prescriptions: metroNIDAZOLE [Flagyl] 500 mg PO TID #42 tablet cefTRIAXone [Rocephin] 2,000 mg IVPB DAILY #1 vial Vancomycin [Vancocin] 1,000 mg IV DAILY #1 vial
[2018-08-28] MEDS: *HR* Heparin 5,000 UNIT/ML VIAL SQ SCH (06:17)
[2018-08-28] MEDS: MOMETASONE FUROATE 100 mcg Inhaler IH SCH (07:13)
[2018-08-28 07:40] LABS: Hematocrit 26.9 % (37.5-50.1); Hemoglobin 8.2 g/dL (12.9-16.9); Mean Corpuscular HGB Conc 30.5 g/dL (31.6-35.5); Mean Corpuscular Hemoglobin 26.4 pg (28.0-33.3); Mean Corpuscular Volume 86.5 fL (83.0-100.0); Mean Platelet Volume 9.1 fL (9.4-12.4); Platelet Count 491 K/mcL (140-400); Red Blood Count 3.11 M/mcL (4.19-5.50); Red Cell Distribution Width 17.2 % (11.5-14.5)
[2018-08-28 07:59] LABS: Calcium 8.3 mg/dL (8.6-10.3); Potassium 4.2 mEq/L (3.5-5.1)
[2018-08-28] MEDS: Insulin LISPRO 300 UNITS/3 ML VIAL SQ SCH ×2 (08:37→12:58)
[2018-08-28] MEDS: Metoprolol XL (24 HR) Succ 25 MG TAB.ER.24H PO SCH (08:39)
[2018-08-28] MEDS: Folic Acid 1 MG TABLET PO SCH (08:40)
[2018-08-28] MEDS: Loratadine 10 MG TABLET PO SCH (08:41)
--- NOTE | 2018-08-28 09:43 | Infectious Disease Progress No ---
ID Progress Note Date of Encounter: 08/28/18 Time of Encounter: 09:20 - Subjective Subjective: Patient seen and examined. No acute events noted overnight. Patient sitting up on the side of the bed and states he feels well and wants to go home. Denies fevers, chills, or rigors. Denies chest pain, shortness of breath, or cough. Denies nausea, vomiting, diarrhea, or constipation. Reports last bowel movement was 2 days ago. States some difficulty starting his urinary stream which is chronic for him, but denies other urinary complaints and denies abdominal pain. Reports mild pain in the right foot at the surgical site. Denies oral thrush or skin rashes. On the scheduled to undergo tunneled PICC placement later today per interventional radiology. - Objective CBC & Chem 7: 08/28/18 07:09 08/28/18 07:09 - Exam Vitals: Temp Pulse Resp BP Pulse Ox 98.0 F 55 18 144/83 98 08/28/18 07:48 08/28/18 07:48 08/28/18 07:48 08/28/18 07:48 08/28/18 08:29 Exam: Head: Atraumatic, normal inspection, normocephalic. Eye: EOMI, PERRLA, no scleral icterus noted. ENT: Mucous membranes moist. No odontogenic infection noted. Neck: Normal inspection, no meningismus. Respiratory: Clear to auscultation. No rales, respiratory distress, rhonchi, or wheezes noted. Cardiovascular: Regular rate and rhythm, S1 and S2 audible. No murmurs, rubs, or gallops. GI: Soft, obese, normal bowel sounds. Non-tender. Extremities: No joint swelling, pedal edema, or tenderness noted. Right foot dressing clean, dry, and intact with wound VAC noted. Small amount of serosanguineous drainage noted in the canister. No erythema noted above the level of the dressing. Left foot gauze dressing clean, dry, and intact. Back: Normal inspection. No vertebral tenderness noted. Neurological: Awake, alert, oriented 3. Moves all extremities on command. No focal deficits noted. Skin: Dry, intact, warm. Normal color. No rashes. - Assessment and Plan (1) Leukocytosis Status: Acute Appears chronic, labs dating back to 2014 reveal leukocytosis. Likely secondary to lymphoma. No other SIRS criteria. Blood cultures drawn 08/18/18 are negative x 2 sets. Qualifiers: Leukocytosis type: unspecified Qualified Code(s): D72.829 - Elevated white blood cell count, unspecified SNOMED Code(s): 366527714, 913019943 (2) Gangrene of toe of right foot Status: Acute Location: Right foot toe #3. Likely secondary to infection and ischemia. Causative organism: MRSA, MSSA, M. morgannii, and GBS based on wound culture from [facility]. Intraoperative cultures positive for Morganella Morgagni, group A strep, and MSSA. It is unclear it the patient had any trauma or open lesion prior to onset of infection. No pre-op imaging was completed here and I do not have minimal records from [facility]. ESR and CRP were not checked. Podiatry consulted. Status post amputation toes #1, #3, #5 on the right foot (toes #2 and #4 previously amputated). Intra-op bone cultures of the 3rd toe positive for Morganella Morgagni, group A streptococcus and MSSA from surgical biopsy culture 08/22/2018. ABIs WNL bilaterally. TCPO2 monitoring showed ischemia bilaterally. Post-op MRI negative for acute abnormality. Currently on Vanc, Rocephin. SNOMED Code(s): 04517510504486244 (3) Foot ulcer, left Status: Acute Location: Left great toe. Etiology: Unclear. Clinically does not appear infected. Podiatry consulted and following. Qualifiers: Non-pressure ulcer stage: unspecified non-pressure ulcer stage Qualified Code(s): L97.529 - Non-pressure chronic ulcer of other part of left foot with unspecified severity SNOMED Code(s): 03561507 (4) Acute kidney injury superimposed on CKD Status: Acute Unclear the patient's baseline renal function. Nephrology consulted and following. Seems to be improving. Monitor renal function and dose adjust antibiotics. Avoid nephrotoxins as able. Monitor vancomycin trough levels very closely. SNOMED Code(s): 55749192 (5) Altered mental state Status: Resolved Etiology: Unclear. Infection vs. metabolic vs. other. Workup was nonrevealing other than for some mild hypercarbia. The patient was placed on BiPAP. Appears resolved today. Qualifiers: Altered mental status type: disorientation Qualified Code(s): R41.0 - Disorientation, unspecified SNOMED Code(s): 998017161 (6) Right groin mass Status: Acute CT of the abdomen pelvis completed 08/17 showed progression of the patient's lymphoma. SNOMED Code(s): 656051882 (7) Morbid obesity with BMI of 40.0-44.9, adult Status: Chronic SNOMED Code(s): 575841774, 49105663623359 (8) Non-Hodgkin lymphoma Status: Acute Course of treatment unknown at this point. It does not appear that the patient follows with [facility]. Qualifiers: Non-Hodgkin lymphoma type: unspecified type Lymphoma site: inguinal Qualified Code(s): C85.95 - Non-Hodgkin lymphoma, unspecified, lymph nodes of inguinal region and lower limb SNOMED Code(s): 730416442 - Recommendations Recommendations: Wound care and activity restrictions per the podiatry team. Continue vancomycin IV. Pharmacy to dose. Goal trough proximally 15. Continue Rocephin 2 g IV daily. Restart Flagyl 500 mg by mouth 3 times a day. Continue until anaerobic cultures finalize. If not finalized before discharge, continue until seen by ID. Duration of treatment depends on the clinical picture, but likely a total of 6 weeks due to the extent of the infection and the fact that the patient wants to salvage his foot and is at high risk for loss of limb if the infection comes back. Interventional radiology consult for tunneled PICC placement which is to happen today. We will need weekly CBC, BUN/creatinine, ESR, and CRP and vancomycin trough. We will need weekly tunneled PICC care per protocol. Follow up with ID 09/12/18 at 1405. Consult Discharge Plan - Plan Instructions: Metronidazole (By mouth), Ceftriaxone (Injection), Vancomycin (Injection), Osteomyelitis (DC), Diabetic Foot Ulcers (DC), Negative Pressure Wo und Therapy (DC) Additional Instructions: Please fax discharge summary to [phone] Referrals: Roslyn Cooper MD [Primary Care Provider] - 09/06/18 2:00 pm (Please take all medication you were prescribed here at the hospital with you to your appoi ntment. Take photo ID, and insurance card with you.) Williams Flower DPM [Partnered Physician] - (1 week) Mell Romero, [employer]PAR[employer] RENTAL CLERK [Advanced Practice Nurse] - 09/12/18 2:05 pm Prescriptions: metroNIDAZOLE [Flagyl] 500 mg PO TID #42 tablet cefTRIAXone [Rocephin] 2,000 mg IVPB DAILY #1 vial Vancomycin [Vancocin] 1,000 mg IV DAILY #1 vial - Attending Attestation I have personally performed a face to face evaluation on this patient. I have reviewed and agree with the care plan. History and Exam by me shows: Assessment and plan: 1.Gangrene of toe of right foot causative organism MRSA, MSSA, Morganella Morgagni and group B streptococcus status post amputation toe #1, 3, 5 2.Leukocytosis could be secondary to lymphoma versus inflammatory versus infectious 3.Acute kidney injury 4.Altered mental status 5.Right groin mass Recommendations: continue current antibiotics regimen with vancomycin, ceftriaxone and flagyl duration of treatment 6 weeks (d/w Dr. Flower) will need to monitor labs and kidney function very closely we can't put a picc line per nephrology request, so patient will likely needed tunneled cath goal vanc trough 15 will need weekly cbc, bmp, esr, crp and vanc trough on d/c follow up with ID clinic 2 weeks post discharge
[2018-08-28] MEDS ORDERED: Heparin 1,000 UNITS/500 mL 500 ML ONE (09:52)
[2018-08-28] MEDS ORDERED: *HR* FentaNYL (PF) 100 MCG/2 ML VIAL IVP ONE (10:25)
[2018-08-28] MEDS ORDERED: CeFAZolin Syr 2,000MG/20 ML 2,000 MG/20 ML SYRINGE IVPB ONE (10:25)
--- NOTE | 2018-08-28 10:47 | IR Procedure Note ---
Date of procedure: 08/28/18 Consent Obtained: Written consent Timeout: Correct patient and procedure verified, Time out performed, Skin prep completed Local anesthetic: Lidocaine 1% Indications: Osteomyelitis and renal disease Procedure Performed: Tunn small bore catheter placement Was there an corporate law assistant present: No Results/Findings: RIJ 7F SL power injectabel TSBC placement Estimated blood loss (cc): 0 Complications: None; Tolerated procedure well Post Procedure Treatment Plan: monitor on floor Specimen: none
[2018-08-28] MEDS: cefTRIAXone 2,000 MG in Water for inj. (sterile) 20 ML 20 ML IVP SCH (11:11)
[2018-08-28 11:43] VITALS: BP 159/89
--- NOTE | 2018-08-28 11:59 | Discharge Summary ---
- NOTES TO OUTPATIENT PROVIDER Notes to Outpatient Provider: Osteomyelitis R 3rd metatarsal discharged w tunneled cath for daily vanc and rocephin, needs weekly labs and follow up with podiatry and ID Orders not resulted at time of discharge: Pending orders 08/22/18 15:55 Surgical Pathology [PTH] Routine Date of Encounter: 08/28/18 Time of Encounter: 09:05 Hospital course: Dear Doctors, I recently had the opportunity to care for this patient during their recent hospital stay at [facility]. Dmitri Sellers is a 47 M w hx DM2, COPD and chronic hypoxic resp failure on 2L, CAD, HTN, HLD, CKD3a, and non-Hodgkin's lymphoma, who presented at time of admission on 08/18 with pain and discoloration of R 3rd toe, found to have gangrene with underlying osteomyelitis. Pt admitted for IV abx and podiatry evaluation. In the hospital, podiatry took pt for amputation of R 3rd toe as well as remaining 1st and 5th toes (previously underwent amputations of 2nd and 4th), and also resected 3rd metatarsal head which was suspicious for osteomyelitis. Intraop cultures growing morganella, group A strep, and MSSA, although previous OSH wound culture also showed MRSA. ID recommended ceftriaxone, vancomycin, and flagyl for 6 week. Due to CKD, Neph advised avoiding PICC, and since vanc cannot go through EPIV, a tunneled cath was placed for IV access for the duration of IV abx. Hospital course was complicated by development of ISIDRO on CKD which improved expectantly as well as acute metabolic encephalopathy suspected multifactorial from ISIDRO, gabapentin use, and cefepime side effect, which improved with holding/changing meds and improving ISIDRO. Dx: gangrene R 3rd toe, osteomyelitis R foot, acute metabolic encephalopathy, ISIDRO on CKD3b, Pertinent tests/consults: - Podiatry, ID, Neph consults - MRI R foot, MRI brain - toe amputation R 1st 3rd 5th toes w 3rd metatarsal head resection Follow up: PCP 1 week, Podiatry 1 week, ID 2 weeks Tests pending: Surg Path from toe amputation Med changes: - new ceftriaxone 2g daily through October 09 - new vanc 1g daily through October 09 - new flagyl 500 tid PO until ID follow up in early September - discontinue gabapentin Mental status: awake, fully oriented Code status: Healthcare Consulting Manager spent on discharge: 35 minutes It has been my pleasure participating in this patient's care. Please contact me with any questions or concerns regarding their hospital stay. Sincerely, Prashanth Adams MD - Discharge Medications Prescriptions: New metroNIDAZOLE [Flagyl] 500 mg PO TID #42 tablet cefTRIAXone [Rocephin] 2,000 mg IVPB DAILY #1 vial Vancomycin [Vancocin] 1,000 mg IV DAILY #1 vial Continued Albuterol Sulfate [Ventolin Hfa] 2 puff PO Q46H PRN PRN Reason: Shortness Of Breath Clopidogrel [Plavix] 75 mg PO DAILY Ergocalciferol (VITAMIN D2) [Vitamin D2] 50,000 units PO QWEEK Ferrous Sulfate 325 mg PO DAILY Fluticasone Furoate [Arnuity Ellipta] 2 puff PO DAILY Folic Acid 1 mg PO DAILY Furosemide [Lasix] 20 mg PO DAILY Lansoprazole [Prevacid] 30 mg PO DAILY PRN PRN Reason: Heartburn Loratadine [Claritin] 10 mg PO DAILY Metoprolol Succinate 25 mg PO DAILY Simvastatin [Zocor] 40 mg PO HS Discontinued Gabapentin [Neurontin] 800 mg PO TID Home Medications: Albuterol Sulfate [Ventolin Hfa] 2 puff PO Q46H PRN 08/19/18 [History] Clopidogrel [Plavix] 75 mg PO DAILY 08/19/18 [History] Ergocalciferol (VITAMIN D2) [Vitamin D2] 50,000 units PO QWEEK 08/19/18 [History] Ferrous Sulfate 325 mg PO DAILY 08/19/18 [History] Fluticasone Furoate [Arnuity Ellipta] 2 puff PO DAILY 08/19/18 [History] Folic Acid 1 mg PO DAILY 08/19/18 [History] Furosemide [Lasix] 20 mg PO DAILY 08/19/18 [History] Lansoprazole [Prevacid] 30 mg PO DAILY PRN 08/19/18 [History] Loratadine [Claritin] 10 mg PO DAILY 08/19/18 [History] Metoprolol Succinate 25 mg PO DAILY 08/19/18 [History] Simvastatin [Zocor] 40 mg PO HS 08/19/18 [History] Vancomycin [Vancocin] 1,000 mg IV DAILY #1 vial 08/28/18 [Rx] cefTRIAXone [Rocephin] 2,000 mg IVPB DAILY #1 vial 08/28/18 [Rx] metroNIDAZOLE [Flagyl] 500 mg PO TID #42 tablet 08/28/18 [Rx] Allergies/Adverse Reactions: Allergy/AdvReac Type Severity Reaction Status Date / Time levofloxacin [From Levaquin] Allergy Anaphylaxis Verified 08/19/18 12:50 sulfamethoxazole Allergy Anaphylaxis Verified 08/19/18 12:50 [From Bactrim] trimethoprim [From Bactrim] Allergy Anaphylaxis Verified 08/19/18 12:50 nicotine [From Nicoderm CQ] AdvReac Itching Verified 08/19/18 12:50 Varenicline [From Chantix] AdvReac Itching Verified 08/19/18 12:50 venlafaxine [From Effexor] AdvReac Fatigued Verified 08/19/18 12:50 Date of admission: 08/18/18 19:15 Primary care physician: Roslyn Cooper MD Consults: 08/18/18 18:09 Consult to Podiatry [CONS] Routine Consulting Provider: Pod[facility] Reason for Consult: necrotic toes Call Completed: Yes 08/23/18 08:09 Consult to Nephrology [CONS] Routine Consulting Provider: [facility]/THANG/YOLANDA/NUBIA Reason for Consult: isidro Call Completed: Yes 08/23/18 23:05 Consult to Infectious Diseases [CONS] Routine Consulting Provider: Infectious [facility] Reason for Consult: R toe gangrene s/p amputation, w metatarsal head resection showing osteomyelitis, will need IV abx at discharge Call Completed: No 08/23/18 23:08 Consult to Invasive Line Access Team [CONS] Routine Reason for Consult: ib abx Line Type: PICC PICC line indications: snf Med/Antibiotic 08/28/18 07:57 Consult to Interventional Radiology [CONS] Routine Consulting Provider: Radiology Interventional [facility] Reason for Consult: needs 6w abx but cannot have PICC, therefore needs tunneled cvc Call Completed: Yes - Constitutional Vitals: Temp Pulse Resp BP Pulse Ox 97.8 F 56 16 159/89 99 08/28/18 11:37 08/28/18 11:37 08/28/18 11:37 08/28/18 11:37 08/28/18 11:37 Exam: General: NAD, good eye contact, chronically ill appearing, obese Thoracic: no visible chest abn, normal work of breathing Skin: wound vac in place R forefoot at site of toe amputations Neuro: awake, fully oriented, speech fluent, moving all extremities spontaneously - Patient Status Disposition: Home Health Service Condition: Fair Functional capacity at discharge: independent ambulation Overall status at discharge: patient is progressing back to baseline - Discharge Instructions Follow Up With: Roslyn Cooper MD [Primary Care Provider] - 09/06/18 2:00 pm (Please take all medication you were prescribed here at the hospital with you to your appointment. Take photo ID, and insurance card with you.) Mell Romero CNP [Advanced Practice Nurse] - 09/12/18 2:05 pm Williams Flower DPM [Partnered Physician] - (1 week) Additional Instructions: Please fax discharge summary to [phone] - Diet and Activity Activity: other (Weight bearing on heel only with assistance) Diet: diabetic diet
--- NOTE | 2018-08-28 12:45 | Physician Discharge Referral ---
Home Health/Hosp Referral Info Transfer to: Home Health Provider in Charge Post Discharge: PCP - Diagnosis (1) Osteomyelitis Priority: Primary Status: Acute - Diet/Nutrition Diet/Nutrition Orders: No Added Salt (CATHRYN) (diabetic) - Activity Activity: List: weight bearing on R heel only with assistance - Services Needed Following services are medically necessary services: Nursing (wound vac care, tunneled CVC care), Physical Therapy - Transfer Medications Prescriptions: metroNIDAZOLE [Flagyl] 500 mg PO TID #42 tablet cefTRIAXone [Rocephin] 2,000 mg IVPB DAILY #1 vial Vancomycin [Vancocin] 1,000 mg IV DAILY #1 vial Home Medications: Albuterol Sulfate [Ventolin Hfa] 2 puff PO Q46H PRN 08/19/18 [History] Clopidogrel [Plavix] 75 mg PO DAILY 08/19/18 [History] Ergocalciferol (VITAMIN D2) [Vitamin D2] 50,000 units PO QWEEK 08/19/18 [History] Ferrous Sulfate 325 mg PO DAILY 08/19/18 [History] Fluticasone Furoate [Arnuity Ellipta] 2 puff PO DAILY 08/19/18 [History] Folic Acid 1 mg PO DAILY 08/19/18 [History] Furosemide [Lasix] 20 mg PO DAILY 08/19/18 [History] Lansoprazole [Prevacid] 30 mg PO DAILY PRN 08/19/18 [History] Loratadine [Claritin] 10 mg PO DAILY 08/19/18 [History] Metoprolol Succinate 25 mg PO DAILY 08/19/18 [History] Simvastatin [Zocor] 40 mg PO HS 08/19/18 [History] Vancomycin [Vancocin] 1,000 mg IV DAILY #1 vial 08/28/18 [Rx] cefTRIAXone [Rocephin] 2,000 mg IVPB DAILY #1 vial 08/28/18 [Rx] metroNIDAZOLE [Flagyl] 500 mg PO TID #42 tablet 08/28/18 [Rx] Allergies/Adverse Reactions: Allergy/AdvReac Type Severity Reaction Status Date / Time levofloxacin [From Levaquin] Allergy Anaphylaxis Verified 08/19/18 12:50 sulfamethoxazole Allergy Anaphylaxis Verified 08/19/18 12:50 [From Bactrim] trimethoprim [From Bactrim] Allergy Anaphylaxis Verified 08/19/18 12:50 nicotine [From Nicoderm CQ] AdvReac Itching Verified 08/19/18 12:50 Varenicline [From Chantix] AdvReac Itching Verified 08/19/18 12:50 venlafaxine [From Effexor] AdvReac Fatigued Verified 08/19/18 12:50 Certification: Further, I certify that my clinical findings support that this patient is homebound (i.e. absences from home require considerable and taxing effort and are for medical reasons or hindu services or infrequently or short duration when for other reasons) because: Homebound Reason: Leaving home requires considerable and taxing effort due to condition Attestation: My signature below is to certify that this patient is under my care and that I, or nurse practitioner, or a physician's assisted living assistant working with me, has a [id number] encounter with this patient.
[2018-08-28] MEDS ORDERED: metroNIDAZOLE 500 MG TABLET PO SCH (15:00)
== END 2018-08-28 15:30 | disposition home health service (06) | DRG 314 ==
LOC: 3ANU → SUATTDRO 19:15 → 3ANU 08-24 14:27 → 2NNU 08-24 17:18
PROVIDERS: ADMIT Student in an Organized Health Care Education/Training Program; ATTEND Internal Medicine